=== PATIENT | female | born 1990 | race African-American/Black ===

== ENCOUNTER 2016-03-07 12:04 | Emergency (ER) | payer OTHER ==
[2016-03-07 12:18] VITALS: BP 120/71; PULSE 80; RESP 16; TEMP 98.6
[2016-03-07] MEDS ORDERED: IBUPROFEN 600 MG TAB PO STA (12:30)
[2016-03-07] MEDS ORDERED: AMOXICILLIN 500 MG CAP PO STA (12:30)
[2016-03-07] MEDS ORDERED: ACETAMINOPHEN TAB 325 MG TAB PO STA (12:30)
[2016-03-07] MEDS ORDERED: ONDANSETRON ODT 4 MG TAB PO STA (12:30)
[2016-03-07] MEDS ORDERED: Acetaminophen-Codeine 300-30mg TAB PO STA (12:30)
[2016-03-07] MEDS ORDERED: DEXAMETHASONE SOD PHOSPHATE 10 MG/ML 1 ML VIAL IM STA (12:30)
--- NOTE | 2016-03-07 12:32 | ED ---
General Adult HPI - General Chief complaint: Upper Respiratory Infection Stated complaint: FLU LIKE SYMPTOMS Time Seen by Provider: 03/07/16 12:19 Source: patient, RN notes reviewed, old records reviewed Mode of arrival: ambulatory - History of Present Illness Initial comments: This is a 25-year-old female here for evaluation. Patient coming in for evaluation of cough congestion and flulike symptoms. Patient describes fluid just not feeling well. Patient has no medical history no significant sick contacts no temperature was retaken medications. Patient admits to generalized body pain and diffuse body myalgias. Patient's is complains of sore throat and cough. No significant shortness of breath. No known fevers. - Related Data Previous Rx's Medication Instructions Recorded Amoxicillin 500 mg PO Q8H #30 capsule 03/07/16 Naproxen [Naprosyn] 500 mg PO Q12HR #60 tab 03/07/16 Ondansetron [Zofran] 4 mg PO Q8HR PRN #30 tab 03/07/16 Allergies Allergy/AdvReac Type Severity Reaction Status Date / Time No Known Allergies Allergy Verified 03/07/16 12:29 Review of Systems ROS Statement: Those systems with pertinent positive or pertinent negative responses have been documented in the HPI. ROS Other: All systems not noted in ROS Statement are negative. Past Medical History Past Medical History: No Reported History Additional Past Medical History / Comment(s): migraine History of Any Multi-Drug Resistant Organisms: None Reported Past Surgical History: Section Past Anesthesia/Blood Transfusion Reactions: No Reported Reaction Past Psychological History: Anxiety Smoking Status: Never smoker Past Alcohol Use History: None Reported Past Drug Use History: None Reported - Past Family History Mother Family Medical History: No Reported History General Exam General appearance: alert, in no apparent distress Head exam: Present: atraumatic, normocephalic, normal inspection Eye exam: Present: normal appearance, PERRL, EOMI. Absent: scleral icterus, conjunctival injection, periorbital swelling ENT exam: Present: normal exam, mucous membranes moist Neck exam: Present: normal inspection. Absent: tenderness, meningismus, lymphadenopathy Respiratory exam: Present: normal lung sounds bilaterally. Absent: respiratory distress, wheezes, rales, rhonchi, stridor Cardiovascular Exam: Present: regular rate, normal rhythm, normal heart sounds. Absent: systolic murmur, diastolic murmur, rubs, gallop, clicks GI/Abdominal exam: Present: soft, normal bowel sounds. Absent: distended, tenderness, guarding, rebound, rigid Extremities exam: Present: normal inspection, full ROM, normal capillary refill. Absent: tenderness, pedal edema, joint swelling, calf tenderness Back exam: Present: normal inspection Neurological exam: Present: alert, oriented X3, CN II-XII intact Psychiatric exam: Present: normal affect, normal mood Skin exam: Present: warm, dry, intact, normal color. Absent: rash Course Vital Signs 03/07/16 12:13 Temperature 98.6 F Pulse Rate 80 Respiratory 16 Rate Blood Pressure 120/71 O2 Sat by Pulse 99 Oximetry Medical Decision Making - Medical Decision Making 21 for female here for evaluation of upper respiratory infection, patient will be started on appropriate antibiotics and symptomatic care. Patient feeling better, no acute distress. Disposition Clinical Impression: Upper respiratory infection, Pharyngitis Disposition: HOME SELF-CARE Condition: Good Instructions: Upper Respiratory Infection (ED), Strep Throat (ED) Prescriptions: Amoxicillin 500 mg PO Q8H #30 capsule Naproxen [Naprosyn] 500 mg PO Q12HR #60 tab Ondansetron [Zofran] 4 mg PO Q8HR PRN #30 tab PRN Reason: Nausea And Vomiting Referrals: Jeronimo Wilson MD [Primary Care Provider] - 1-2 days
--- NOTE | 2016-03-09 11:48 | CDI ---
Please add more patient documentation to the patient record in order to be accurately coded. Thank you, Junie MARTIN 03/08/16 DAISY
== END 2016-03-07 12:52 | disposition home or self-care (01) ==
LOC: EC 12:04
DX: J06.9 Acute upper respiratory infection, unspecified (principal); J02.9 Acute pharyngitis, unspecified
CPT/HCPCS: 99283; J1100

== ENCOUNTER 2016-05-13 15:19 | Emergency (ER) | payer OTHER ==
[2016-05-13 15:39] VITALS: BP 101/61; PULSE 105; RESP 16; TEMP 98.5
--- NOTE | 2016-05-13 17:02 | ED ---
Abdominal Pain HPI - General Chief Complaint: Abdominal Pain Stated Complaint: 13 wks /abd.pain Time Seen by Provider: 05/13/16 16:31 Source: patient, RN notes reviewed Mode of arrival: ambulatory Limitations: no limitations - History of Present Illness Initial Comments: 25-year-old female presents emergency Department with chief complaint of lower abdominal cramping. Patient is A1 encouraged to 2 weeks . Patient states she has upper calming appointment with her ROLL INSPECTOR states that she had this cramping with no bleeding. Denies any vaginal bleeding or vaginal discharge. Patient states that she does have a several months ago. Patient denies any nausea, vomiting diarrhea constipation. Denies any dysuria hematuria. - Related Data Home Medications Medication Instructions Recorded Confirmed No Known Home Medications [No 05/13/16 05/13/16 Known Home Medications] Allergies Allergy/AdvReac Type Severity Reaction Status Date / Time No Known Allergies Allergy Verified 05/13/16 16:52 Review of Systems ROS Statement: Those systems with pertinent positive or pertinent negative responses have been documented in the HPI. ROS Other: All systems not noted in ROS Statement are negative. Past Medical History Past Medical History: No Reported History Additional Past Medical History / Comment(s): migraine History of Any Multi-Drug Resistant Organisms: None Reported Past Surgical History: Section Past Anesthesia/Blood Transfusion Reactions: No Reported Reaction Past Psychological History: Anxiety Smoking Status: Never smoker Past Alcohol Use History: None Reported Past Drug Use History: None Reported - Past Family History Mother Family Medical History: No Reported History General Exam Limitations: no limitations General appearance: alert, in no apparent distress Head exam: Present: atraumatic, normocephalic, normal inspection Neck exam: Present: normal inspection. Absent: tenderness, meningismus, lymphadenopathy Respiratory exam: Present: normal lung sounds bilaterally. Absent: respiratory distress, wheezes, rales, rhonchi, stridor Cardiovascular Exam: Present: regular rate, normal rhythm, normal heart sounds. Absent: systolic murmur, diastolic murmur, rubs, gallop, clicks GI/Abdominal exam: Present: soft, normal bowel sounds. Absent: distended, tenderness, guarding, rebound, rigid Course Vital Signs 05/13/16 15:36 Temperature 98.5 F Pulse Rate 105 H Respiratory 16 Rate Blood Pressure 101/61 O2 Sat by Pulse 97 Oximetry Medical Decision Making - Medical Decision Making 25-year-old female presented emergency department for low abdominal cramping . Patient ultrasound does not show an acute abnormality. Urinalysis within normal. Patient states she'll have a regular lab work drawn by her OB/ MEDIA RECONCILIATION SPECIALIST. Patient states that she [email or web address]. - Lab Data Lab Results 05/13/16 Range/Units 17:02 Urine Color Yellow Urine Appearance Clear (Clear) Urine pH 6.5 (5.0-8.0) Ur Specific Gardner 1.027 (1.001-1.035) Urine Protein Trace H (Negative) Urine Glucose (UA) Negative (Negative) Urine Ketones 1+ H (Negative) Urine Blood Negative (Negative) Urine Nitrite Negative (Negative) Urine Bilirubin Negative (Negative) Urine Urobilinogen 2.0 (<2.0) mg/dL Ur Leukocyte Esterase Negative (Negative) Disposition Clinical Impression: Abdominal cramping, Disposition: HOME SELF-CARE Condition: Stable Instructions: (ED) Additional Instructions: Please return to the Emergency Department if symptoms worsen or any other concerns. Time of Disposition: 17:54
[2016-05-13 17:07] LABS: Appearance,Urine Clear (Clear); Bilirubin,Urine Negative (Negative); Glucose,Urine (UA) Negative (Negative); Ketones,Urine 1+ (Negative); Leukocyte Esterase,Urine Negative (Negative); Nitrite,Urine Negative (Negative); PH, Urine 6.5 (5.0-8.0); Protein,Urine Trace (Negative); Specific Gravity,Urine 1.027 (1.001-1.035); UA Billing (MACRO vs. MICRO) CHEM
--- NOTE | 2016-05-13 18:01 | US ---
EXAMINATION TYPE: US OB <= 14 wk fetus DATE OF EXAM: 05/13/2016 5:38 PM COMPARISON: NONE CLINICAL HISTORY: Pain. Rt side cramping, no spotting, prior EXAM PERFORMED: Transabdominal (TA) EXAM MEASUREMENTS: GESTATIONAL AGE / DATING Dates by LMP: (12 weeks/6 days) EDC: 11/19/2016 Dates by Current Scan for: (13 weeks/2 days) EDC: 11/16/2016 MATERNAL ANATOMY Uterus: 13.0 x 9.4 x 7.8 cm Right Ovary: 2.7 x 1.7 x 1.1 cm Left Ovary: 2.6 x 1.7 x 1.5 cm Post CDS / Adnexa: no free fluid Presence of free fluid: no Presence of corpus luteal cyst: no Presence of subchorionic bleed: no GESTATION / SURVEY CRL: 7.1 (13 weeks/2 days) MSD: no measured Yolk Sac (normal less than 6mm): not seen Heart Rate: 166 bpm Rhythm: Normal IUP: Viable IUP Date of LMP: 02/13/2016 Beta HcG (if available): not available TECHNOLOGIST IMPRESSION: Live single IUP measuring 13 weeks 2 days. IMPRESSION: Single live intrauterine corresponding to an ultrasound age of 13 weeks and 2 days. Interna l cervical os is closed and no fluid is seen within the cervical canal.
== END 2016-05-13 17:58 | disposition home or self-care (01) ==
LOC: EC 15:19
DX: O99.89 Other specified diseases and conditions complicating pregnancy, childbirth and the puerperium (principal); R10.30 Lower abdominal pain, unspecified; Z3A.13 13 weeks gestation of pregnancy
CPT/HCPCS: 76801; 81003; 99284

== ENCOUNTER 2016-06-22 23:12 | Emergency (ER) | payer OTHER ==
[2016-06-22 23:30] VITALS: BP 127/67; TEMP 98.4
[2016-06-23 00:35] VITALS: PULSE 90
--- NOTE | 2016-06-23 00:49 | ED ---
General Adult HPI - General Chief complaint: Shortness of Breath Stated complaint: SOB/Hx Asthma Time Seen by Provider: 06/22/16 23:40 Source: patient, RN notes reviewed Mode of arrival: ambulatory Limitations: no limitations - History of Present Illness Initial comments: This is a 25-year-old female who is 18 weeks . Patient states she was unable to anxiety medications and to skip her that she had to be taken off of them. Patient states further along in her it is getting difficult to lay flat because it makes her feel like she has to breath. She states when this happens she becomes anxious and she feels even more short of breath. Patient states when she sits up for a while all symptoms seemed to resolve. Patient states currently sitting in the emergency department she feels fine. Patient states she says thinks it's her anxiety. Patient states it happened with the previous 2 pregnancies. Patient denies any cough. Patient denies any fever or chills. Patient denies any chest pain or palpitations. Patient denies headache patient denies numbness weakness. Patient denies lightheadedness dizziness or near syncopal episode. Patient denies any leg swelling or calf tenderness. - Related Data Home Medications Medication Instructions Recorded Confirmed No Known Home Medications [No 05/13/16 06/22/16 Known Home Medications] Allergies Allergy/AdvReac Type Severity Reaction Status Date / Time No Known Allergies Allergy Verified 06/22/16 23:30 Review of Systems ROS Statement: Those systems with pertinent positive or pertinent negative responses have been documented in the HPI. ROS Other: All systems not noted in ROS Statement are negative. Past Medical History Past Medical History: Asthma Additional Past Medical History / Comment(s): migraine History of Any Multi-Drug Resistant Organisms: None Reported Past Surgical History: Section Past Anesthesia/Blood Transfusion Reactions: No Reported Reaction Past Psychological History: Anxiety Smoking Status: Never smoker Past Alcohol Use History: None Reported Past Drug Use History: None Reported - Past Family History Mother Family Medical History: No Reported History General Exam - General Exam Comments Initial Comments: GENERAL: Patient is well-developed and well-nourished. Patient is nontoxic and well- hydrated and is in no acute distress. ENT: Neck is soft and supple. No significant lymphadenopathy is noted. Oropharynx is clear. Moist mucous membranes. Neck has full range of motion without eliciting any pain. EYES: The sclera were anicteric and conjunctiva were pink and moist. Extraocular movements were intact and pupils were equal round and reactive to light. Eyelids were unremarkable. PULMONARY: Unlabored respirations. Good breath sounds bilaterally. No audible rales rhonchi or wheezing was noted. CARDIOVASCULAR: There is a regular rate and rhythm without any murmurs gallops or rubs. ABDOMEN: Soft and nontender with normal bowel sounds. No palpable organomegaly was noted. There is no palpable pulsatile mass. SKIN: Skin is clear with no lesions or rashes and otherwise unremarkable. NEUROLOGIC: Patient is alert and oriented x3. Cranial nerves II through XII are grossly intact. Motor and sensory are also intact. Normal speech, volume and content. Symmetrical smile. MUSCULOSKELETAL: Normal extremities with adequate strength and full range of motion. No lower extremity swelling or edema. No calf tenderness. PSYCHIATRIC: Normal psychiatric evaluation. Patient is mildly anxious Limitations: no limitations Course Vital Signs 06/22/16 06/23/16 23:27 00:30 Temperature 98.4 F Pulse Rate 88 90 Respiratory 20 20 Rate Blood Pressure 127/67 O2 Sat by Pulse 97 96 Oximetry Medical Decision Making - Medical Decision Making Patient is oxygenating 99% on room air breathing through her nose. Her heart rate is 81 bpm her blood pressure is normal her lungs are clear. I discussed with her the possibility that her increased abdominal girth condition the sensation she needs takes a big breath when she is laying down and she agrees sitting up and sleeping as much better. And I discussed that her vitals are perfect she is no distress she is breathing through her nose and I didn't think any workup would be necessary she agreed it was probably her anxiety and now that she has been in the emergency department she feels back to her baseline. Patient is comfortable going home with no further workup Disposition Clinical Impression: Anxiety Disposition: HOME SELF-CARE Instructions: Anxiety (ED) Referrals: Nonstaff,Physician [Primary Care Provider] - 1-2 days Time of Disposition: 00:49
[2016-06-23 00:55] VITALS: RESP 18
== END 2016-06-23 00:55 | disposition home or self-care (01) ==
LOC: EC 23:12
DX: O99.342 Other mental disorders complicating pregnancy, second trimester (principal); F41.9 Anxiety disorder, unspecified; Z3A.18 18 weeks gestation of pregnancy
CPT/HCPCS: 99284

== ENCOUNTER 2016-07-17 18:35 | Emergency (ER) | payer OTHER ==
[2016-07-17 18:58] VITALS: RESP 18
[2016-07-17] MEDS ORDERED: ACETAMINOPHEN TAB 500 MG TAB PO STA (19:10)
--- NOTE | 2016-07-17 19:15 | ED ---
General Adult HPI - General Chief complaint: Fever Stated complaint: back pain,congestion Time Seen by Provider: 07/17/16 19:01 Source: patient, RN notes reviewed, old records reviewed Mode of arrival: ambulatory Limitations: no limitations - History of Present Illness Initial comments: Chief complaint history of present illness a 25-year-old female with complaint of sore throat and right ear pain for 3 days. She had a fever that long 2. Patient presents with temp 102.3. She last took Tylenol this morning at 9 AM. - Related Data Home Medications Medication Instructions Recorded Confirmed Ferrous Sulfate [Feosol] 325 mg PO HS 07/17/16 07/17/16 Pnv #78/Iron Asp Gly/FA#1/Dha 1 cap PO HS 07/17/16 07/17/16 [Prenate Dha Softgel] Previous Rx's Medication Instructions Recorded Amoxicillin 500 mg PO Q8H 10 Days 07/17/16 Allergies Allergy/AdvReac Type Severity Reaction Status Date / Time No Known Allergies Allergy Verified 06/22/16 23:30 Review of Systems ROS Statement: Those systems with pertinent positive or pertinent negative responses have been documented in the HPI. Review of systems. Mild headache but no stiff neck pain to the right ear. Complains of sore throat. Able to put her chin to her chest without any discomfort to the neck or meningismus. No chest pain shortness breath GI/ complaints. She is 22 weeks . No vaginal discharge or cramping. No flank pain, no urinary problems. Past medical problems significant for asthma and migraines. The patient is 22 weeks . Surgeries include . Family history a grandmother had breast cancer. Patient denies ALLERGIES nonsmoker nondrinker. ROS Other: All systems not noted in ROS Statement are negative. Past Medical History Past Medical History: Asthma Additional Past Medical History / Comment(s): migraine History of Any Multi-Drug Resistant Organisms: None Reported Past Surgical History: Section Past Anesthesia/Blood Transfusion Reactions: No Reported Reaction Past Psychological History: Anxiety Smoking Status: Never smoker Past Alcohol Use History: None Reported Past Drug Use History: None Reported - Past Family History Mother Family Medical History: No Reported History General Exam - General Exam Comments Initial Comments: General: The patient is awake and alert, complaining of right ear pain sore throat mild headache. Vital signs shows temperature 102.3 pulse 122 respiratory rate 18 pulse ox R percent room air blood pressure 139/86. Eye: Pupils are equal, round and reactive to light, extra-ocular movements are intact ; there is normal conjunctiva bilaterally. No signs of icterus. Ears, nose, mouth and throat: There are moist mucous membranes and oropharynx mildly reddened no exudate. Mildly full red right tympanic membrane. Neck: The neck is supple, there is no tenderness , no anterior cervical lymphadenopathy. She does complain discomfort to the bilateral sternocleidomastoid his muscles. But no meningismus with full neck flexion and extension. Cardiovascular: Tachycardic heart rate with fever.. No murmur, rub or gallop is appreciated. Respiratory: Lungs are clear to auscultation, respirations are non-labored, breath sounds are equal. No wheezes, stridor, rales, or rhonchi. Gastrointestinal: Soft, non-distended, non-tender abdomen without masses or organomegaly noted. There is no rebound or guarding present. Patient's 22 weeks . No vaginal discharge or cramping. Back: There is no tenderness to palpation in the midline. No back pain Musculoskeletal: Normal ROM, no tenderness, Neurological: No neuro deficits Skin: No skin rash Limitations: no limitations Course Vital Signs 07/17/16 07/17/16 07/17/16 18:55 19:15 20:19 Temperature 102.3 F H 103.0 F H 102.2 F H Pulse Rate 122 H 112 H Respiratory 18 18 Rate Blood Pressure 139/86 137/64 O2 Sat by Pulse 100 100 Oximetry 07/17/16 07/17/16 21:10 21:56 Temperature 99.8 F H 99.6 F Pulse Rate 98 Respiratory 18 Rate Blood Pressure 114/74 O2 Sat by Pulse 100 Oximetry Medical Decision Making - Medical Decision Making Medical decision making the patient's rapid strep test is negative, influenza AB -. Patient received 1 g of Tylenol. At this time she states she is feeling much better. No headache. No stiff neck. No meningismus. No cough. The patient was given amoxicillin 500 mg in the ER. She has right otitis media. Patient was advised to follow-up with the family physician return emergency room as needed otherwise increase fluids and take Tylenol as directed for fever or muscle aches and pains. If her symptoms change she is to return to the emergency room - Lab Data Lab Results 07/17/16 07/17/16 Range/Units 18:57 19:50 Influenza Type A RNA Not Detected (Not Detectd) Influenza Type B (PCR) Not Detected (Not Detectd) Group A Strep Rapid Negative (Negative) Disposition Clinical Impression: Otitis media Disposition: HOME SELF-CARE Condition: Fair Instructions: Fever in Adults (ED), Otitis Media (ED) Additional Instructions: Increase fluids, take Tylenol as directed for fever or muscle aches and pains. Follow-up family physician and your DIRECTOR MEDICAL WRITING doctor. Take amoxicillin 500 mg 3 times a day for 10 days. Return emergency room if there are any changes in her condition Prescriptions: Amoxicillin 500 mg PO Q8H 10 Days Referrals: None,Stated [REFERRING] - 1-2 days Time of Disposition: 22:28
[2016-07-17] MEDS ORDERED: AMOXICILLIN 500MG STARTER PACK 3 CAP BTL PO STA (22:26)
[2016-07-17 22:52] VITALS: BP 106/56; PULSE 102; TEMP 99
== END 2016-07-17 22:55 | disposition home or self-care (01) ==
LOC: EC 18:35
DX: H66.91 Otitis media, unspecified, right ear (principal); Z79.899 Other long term (current) drug therapy
CPT/HCPCS: 87081; 87430; 87502; 99284

== ENCOUNTER 2016-07-19 15:49 | Emergency (ER) | payer OTHER ==
[2016-07-19] MEDS ORDERED: SODIUM CHLORIDE 0.9% 1,000 ML IV STA (16:17)
[2016-07-19] MEDS ORDERED: SODIUM CHLORIDE 0.9% 2,000 ML IV STA (16:17)
[2016-07-19] MEDS ORDERED: METOCLOPRAMIDE 5 MG/ML 2 ML VIAL IVP STA (16:17)
[2016-07-19] MEDS ORDERED: IPRATROPIUM-ALBUTEROL 3 ML NEB INHALATION STA (16:18)
[2016-07-19] MEDS ORDERED: ACETAMINOPHEN IV (For NPO) 1,000 MG in EMPTY BAG 1 BAG IVPB ONE (16:18)
--- NOTE | 2016-07-19 16:23 | ED ---
General Adult HPI - General Chief complaint: Shortness of Breath Stated complaint: SOB/Vomiting/Headache-22 wks preg Time Seen by Provider: 07/19/16 16:10 Source: patient Mode of arrival: wheelchair Limitations: no limitations - History of Present Illness Initial comments: This 25-year-old -[place] female presents with a complaint of a headache and vomiting. She states that she does get migraine headaches her current headache has been present over the last 2 days and moderately severe. It is diffuse in nature. She also has been having multiple episodes of nausea and vomiting over the last 2 days. She feels dehydrated currently. She has not been able to eat anything in the last 2 days. She was seen in the emergency department 2 days ago and diagnosed with otitis media and placed on antibiotics. She states that she had a fever of 102 2 days ago but this has improved and she's not had any further fevers. She denies any current ear pain but does complain of congestion throughout her sinuses and nose. She complains of some diffuse pain throughout her face and periauricular region. She is currently 22 weeks . She denies any complications with thus far. She denies any abdominal pain. She does have occasional shortness of breath but relates that she has a history of asthma. She started her home breathing treatments with limited relief. No other complaints or modifying factors. - Related Data Home Medications Medication Instructions Recorded Confirmed Pnv #78/Iron Asp Gly/FA#1/Dha 1 cap PO DAILY 07/17/16 07/19/16 [Prenate Dha Softgel] Previous Rx's Medication Instructions Recorded Metoclopramide [Reglan] 10 mg PO Q6H PRN #20 tab 07/19/16 Allergies Allergy/AdvReac Type Severity Reaction Status Date / Time No Known Allergies Allergy Verified 07/19/16 16:34 Review of Systems ROS Statement: Those systems with pertinent positive or pertinent negative responses have been documented in the HPI. ROS Other: All systems not noted in ROS Statement are negative. Past Medical History Past Medical History: Asthma Additional Past Medical History / Comment(s): migraine History of Any Multi-Drug Resistant Organisms: None Reported Past Surgical History: Section Past Anesthesia/Blood Transfusion Reactions: No Reported Reaction Past Psychological History: Anxiety Smoking Status: Never smoker Past Alcohol Use History: None Reported Past Drug Use History: None Reported - Past Family History Mother Family Medical History: No Reported History General Exam - General Exam Comments Initial Comments: GENERAL: The patient is well nourished and well hydrated. VITAL SIGNS: Heart rate, blood pressure, respiratory rate reviewed as recorded in nurse's notes. EYES: Pupils are round and reactive. Extraocular movements are intact. No conjunctival / lid redness or swelling. ENT: No external evidence of injury, swelling, or ecchymosis. Airway is patent. Throat is clear. Tympanic membranes are slightly dull bilaterally. NECK: Nontender. No swelling or evidence of injury. No subcutaneous emphysema. Trachea is midline. No thyroid mass. HEART: Regular rate and rhythm. Good peripheral pulses. LUNGS/CHEST: Breath sounds clear and equal bilaterally. No rales, rhonchi, or wheezes. No ecchymosis, subcutaneous emphysema, or tenderness. ABDOMEN: Abdomen soft without tenderness. There is a part partially gravid uterus noted. No peritoneal signs. No abdominal wall swelling or ecchymosis. EXTREMITIES: No extremity tenderness. Normal muscle tone and function. No thoracolumbar tenderness. NEUROLOGIC: Sensation is grossly intact. Cranial nerve exam reveals face is symmetrical, tongue is midline, speech is clear. SKIN: No abrasions or ecchymosis is noted. No induration or masses noted. PSYCHIATRIC: Alert and oriented. Appropriate behavior and judgment. Limitations: no limitations Course Vital Signs 07/19/16 07/19/16 07/19/16 15:57 17:21 17:30 Temperature 97.0 F L Pulse Rate 91 88 90 Respiratory 18 Rate Blood Pressure 106/64 O2 Sat by Pulse 97 Oximetry Medical Decision Making - Medical Decision Making The patient was seen and examined. Ample IV fluids are given. She also received some Reglan as well as some Ofirmev. All diagnostics are reviewed. Old records are reviewed. The laboratory shows a very slight decrease in her CO2 consistent with some dehydration. The remainder of labs are overall fairly unremarkable. She is feeling remarkably improved on recheck. She longer has any headache. Her nausea is resolved. Her main complaint was essentially that of the nausea and vomiting as well as headache. The shortness of breath is consistent with her asthma and is a mild complaint. This is improved as well. Is felt as though she would benefit from a prescription further Reglan for home. It is also felt that she may benefit from Tylenol usage and can safely take this with . She is instructed that she may utilize her albuterol treatments every 4 hours as needed for her asthma at home as well. It is further felt that she benefit from close follow-up with her OB doctor and to return if her symptoms do worsen. She voices understanding, is appreciative, and leaves in no distress. - Lab Data Result diagrams: 07/19/16 16:44 07/19/16 16:44 Lab Results 07/19/16 07/19/16 Range/Units 16:44 16:44 WBC 7.0 (3.8-10.6) k/uL RBC 3.91 (3.80-5.40) m/uL Hgb 12.2 (11.4-16.0) gm/dL Hct 37.3 (34.0-46.0) % MCV 95.4 (80.0-100.0) fL MCH 31.3 (25.0-35.0) pg MCHC 32.8 (31.0-37.0) g/dL RDW 12.7 (11.5-15.5) % Plt Count 258 (150-450) k/uL Neutrophils % 74 % Lymphocytes % 20 % Monocytes % 3 % Eosinophils % 1 % Basophils % 0 % Neutrophils # 5.1 (1.3-7.7) k/uL Lymphocytes # 1.4 (1.0-4.8) k/uL Monocytes # 0.2 (0-1.0) k/uL Eosinophils # 0.1 (0-0.7) k/uL Basophils # 0.0 (0-0.2) k/uL Sodium 140 (137-145) mmol/L Potassium 4.1 (3.5-5.1) mmol/L Chloride 109 H (98-107) mmol/L Carbon Dioxide 21 L (22-30) mmol/L Anion Gap 10 mmol/L BUN 8 (7-17) mg/dL Creatinine 0.45 L (0.52-1.04) mg/dL Est GFR (MDRD) Af Amer >60 (>60 ml/min/1.73 sqM) Est GFR (MDRD) Non-Af >60 (>60 ml/min/1.73 sqM) Glucose 79 (74-99) mg/dL Calcium 9.1 (8.4-10.2) mg/dL Amylase 92 (30-110) U/L Lipase 54 (23-300) U/L Disposition Clinical Impression: Nausea and vomiting during , Migraine, Asthma, , Dehydration , Hyperemesis gravidarum Disposition: HOME SELF-CARE Condition: Good Instructions: Asthma (ED), Hyperemesis Gravidarum (ED), Migraine Headache (ED) , Dehydration (ED) Additional Instructions: Please also use Tylenol if needed for additional headache or pain. Please follow-up with your [facility] doctor in the next 2-4 days. Prescriptions: Metoclopramide [Reglan] 10 mg PO Q6H PRN #20 tab PRN Reason: Nausea Referrals: Jeronimo Wilson MD [Primary Care Provider] - 1-2 days Time of Disposition: 17:37
[2016-07-19 17:04] LABS: Basophils % (A) 0 %; CH 31.9; CHCM 33.6; Eosinophils # (A) 0.1 k/uL (0-0.7); Eosinophils % (A) 1 %; HCT 37.3 % (34.0-46.0); HDW 2.83; HGB 12.2 gm/dL (11.4-16.0); Luc # (Auto) 0.14; Luc % (Auto) 2; Lymphocytes # (A) 1.4 k/uL (1.0-4.8); Lymphocytes % (A) 20 %; MCH 31.3 pg (25.0-35.0); MCHC 32.8 g/dL (31.0-37.0); MCV 95.4 fL (80.0-100.0); Mean Platelet Volume 7.7; Monocytes # (A) 0.2 k/uL (0-1.0); Monocytes % (A) 3 %; Neutrophils # (A) 5.1 k/uL (1.3-7.7); Neutrophils % (A) 74 %; RBC 3.91 m/uL (3.80-5.40); RDW 12.7 % (11.5-15.5); WBC (Perox) 6.91
[2016-07-19 17:16] LABS: Amylase 92 U/L (30-110); Anion Gap 10 mmol/L; Blood Urea Nitrogen 8 mg/dL (7-17); Calcium 9.1 mg/dL (8.4-10.2); Carbon Dioxide 21 mmol/L (22-30); Chloride 109 mmol/L (98-107); Glucose 79 mg/dL (74-99); Non-African American GFR(MDRD) >60 (>60 ml/min/1.73 sqM); Potassium 4.1 mmol/L (3.5-5.1); Sodium 140 mmol/L (137-145)
[2016-07-19 18:02] VITALS: BP 132/81; PULSE 86; RESP 17; TEMP 98.6
== END 2016-07-19 18:02 | disposition home or self-care (01) ==
LOC: EC 15:49
DX: O99.512 Diseases of the respiratory system complicating pregnancy, second trimester (principal); J45.909 Unspecified asthma, uncomplicated; O99.352 Diseases of the nervous system complicating pregnancy, second trimester; G43.909 Migraine, unspecified, not intractable, without status migrainosus; O21.2 Late vomiting of pregnancy; O99.282 Endocrine, nutritional and metabolic diseases complicating pregnancy, second trimester; E86.0 Dehydration; Z79.899 Other long term (current) drug therapy; Z53.20 Procedure and treatment not carried out because of patient's decision for unspecified reasons; Z3A.22 22 weeks gestation of pregnancy
CPT/HCPCS: 36415; 94640; 80048; 82150; 83690; 85025; 99285; 96374; 96361; J2765; J0131

== ENCOUNTER 2018-03-04 03:55 | Emergency (ER) | payer OTHER ==
[2018-03-04] MEDS ORDERED: SODIUM CHLORIDE 0.9% 1,000 ML IV STA (04:43)
[2018-03-04] MEDS ORDERED: MAG HYDROX/AL HYDROX/SIMETH 30 ML, HYOSCYAMINE ELIXIR 10 ML, CIMETIDINE HCL 300 MG, LID... PO STA ×4 (04:44)
--- NOTE | 2018-03-04 04:44 | ED ---
Abdominal Pain HPI - General Chief Complaint: Abdominal Pain Stated Complaint: Abdominal Pain Time Seen by Provider: 03/04/18 04:43 Source: patient Mode of arrival: ambulatory Limitations: no limitations - History of Present Illness Initial Comments: Sophy Pan is a 27-year-old -Finnish female presents the emergency department today for evaluation of burning epigastric abdominal pain. Patient reports she's had this pain intermittently for a number of weeks but tonight it became unbearable. Patient describes the pain as a burning and stabbing isolated to her epigastrium. Pain is been constant for a number of days. Pain seems to wax and wane a little bit but she cannot identify any exacerbating or relieving factors. Pain doesn't seem to be worsened or improved with eating. Pain doesn't seem to be changed by what she eats whether she eats bland spicy or greasy foods. Pain is not associated with any nausea or vomiting or change in bowel or bladder habits. Patient does report she has a history of GERD but this seems different. She has discussed this discomfort with her primary care physician the past but has been told that is likely related to her acid reflux. Patient does report that she is currently under a lot of stress. She states that she has recently started going to the gym and trying to work out to improve her health but is feeling very discouraged by this constant pain. - Related Data Home Medications Medication Instructions Recorded Confirmed 78/Iron/Folate 1/Dha 1 cap PO DAILY 07/17/16 07/19/16 [Prenate Dha Softgel] Previous Rx's Medication Instructions Recorded Metoclopramide [Reglan] 10 mg PO Q6H PRN #20 tab 07/19/16 Pantoprazole Sodium [Protonix] 40 mg PO DAILY #30 tablet. 03/04/18 Sucralfate [Carafate] 1 gm PO ACHS #1 bottle 03/04/18 Allergies Allergy/AdvReac Type Severity Reaction Status Date / Time No Known Allergies Allergy Verified 03/04/18 04:17 Review of Systems ROS Statement: Those systems with pertinent positive or pertinent negative responses have been documented in the HPI. ROS Other: All systems not noted in ROS Statement are negative. Past Medical History Past Medical History: Asthma, GERD/Reflux Additional Past Medical History / Comment(s): migraine History of Any Multi-Drug Resistant Organisms: None Reported Past Surgical History: Section Past Anesthesia/Blood Transfusion Reactions: No Reported Reaction Past Psychological History: Anxiety Smoking Status: Never smoker Past Alcohol Use History: None Reported Past Drug Use History: None Reported - Past Family History Mother Family Medical History: No Reported History General Exam - General Exam Comments Initial Comments: Physical Exam GENERAL: Morbidly obese Patient is well-developed and well-nourished. Patient is nontoxic and well-hydrated and is in no distress. HENT: Normocephalic, Atraumatic. EYES: PERRL, EOMI PULMONARY: Unlabored respirations. No audible rales rhonchi or wheezing was noted. CARDIOVASCULAR: There is a regular rate and rhythm without any murmurs gallops or rubs. ABDOMEN: Soft and nontender with normal bowel sounds. No tenderness to palpation SKIN: Skin is clear with no lesions or rashes and otherwise unremarkable. : Deferred NEUROLOGIC: Patient is alert and oriented x3. Moving all extremities spontaneously MUSCULOSKELETAL: Normal extremities with adequate strength and full range of motion. No lower extremity swelling or edema. No calf tenderness. PSYCHIATRIC: Normal psychiatric evaluation. Limitations: no limitations Limitations: no limitations Course Vital Signs 03/04/18 03/04/18 03/04/18 04:14 07:06 09:03 Temperature 98.5 F 98.1 F Pulse Rate 82 75 86 Respiratory 18 16 16 Rate Blood Pressure 124/67 103/70 123/85 O2 Sat by Pulse 100 99 100 Oximetry Medical Decision Making - Medical Decision Making Patient was seen and evaluated History is obtained from patient Labs and imaging ordered GI cocktail was ordered Labs were unremarkable x-ray imaging with no acute findings I have a very high suspicion the patient's discomfort is related to gastritis or ulcer disease. Just this with the patient. Patient requesting narcotic pain medication I advised her I don't feel this is appropriate for her chronic pain. Patient is agreeable to plan for discharge home with outpatient follow- up. Patient be referred to gastroenterology as she has not seen a team manager in the past. All questions pertaining care were answered return parameters were discussed patient's discharged home in stable condition. - Lab Data Result diagrams: 03/04/18 05:38 03/04/18 05:38 Lab Results 03/04/18 03/04/18 03/04/18 Range/Units 04:46 05:38 05:38 WBC 6.9 (3.8-10.6) k/uL RBC 4.25 (3.80-5.40) m/uL Hgb 12.5 (11.4-16.0) gm/dL Hct 39.5 (34.0-46.0) % MCV 92.9 (80.0-100.0) fL MCH 29.5 (25.0-35.0) pg MCHC 31.7 (31.0-37.0) g/dL RDW 12.3 (11.5-15.5) % Plt Count 283 (150-450) k/uL Neutrophils % 56 % Lymphocytes % 35 % Monocytes % 3 % Eosinophils % 3 % Basophils % 0 % Neutrophils # 3.8 (1.3-7.7) k/uL Lymphocytes # 2.4 (1.0-4.8) k/uL Monocytes # 0.2 (0-1.0) k/uL Eosinophils # 0.2 (0-0.7) k/uL Basophils # 0.0 (0-0.2) k/uL Sodium 141 (137-145) mmol/L Potassium 4.6 (3.5-5.1) mmol/L Chloride 111 H (98-107) mmol/L Carbon Dioxide 22 (22-30) mmol/L Anion Gap 8 mmol/L BUN 11 (7-17) mg/dL Creatinine 0.63 (0.52-1.04) mg/dL Est GFR (CKD-EPI)AfAm >90 (>60 ml/min/1.73 sqM) Est GFR (CKD-EPI)NonAf >90 (>60 ml/min/1.73 sqM) Glucose 119 H (74-99) mg/dL Calcium 9.5 (8.4-10.2) mg/dL Total Bilirubin 0.7 (0.2-1.3) mg/dL AST 26 (14-36) U/L ALT 23 (9-52) U/L Alkaline Phosphatase 75 (38-126) U/L Total Protein 7.8 (6.3-8.2) g/dL Albumin 4.2 (3.5-5.0) g/dL Amylase 89 (30-110) U/L Lipase 119 (23-300) U/L Urine Color Yellow Urine Appearance Clear (Clear) Urine pH 6.5 (5.0-8.0) Ur Specific [place] 1.019 (1.001-1.035) Urine Protein Negative (Negative) Urine Glucose (UA) Negative (Negative) Urine Ketones Negative (Negative) Urine Blood Negative (Negative) Urine Nitrite Negative (Negative) Urine Bilirubin Negative (Negative) Urine Urobilinogen <2.0 (<2.0) mg/dL Ur Leukocyte Esterase Negative (Negative) Disposition Clinical Impression: Abdominal pain Disposition: HOME SELF-CARE Condition: Good Instructions: Abdominal Pain (ED) Prescriptions: Pantoprazole Sodium [Protonix] 40 mg PO DAILY #30 tablet. Sucralfate [Carafate] 1 gm PO ACHS #1 bottle Is patient prescribed a controlled substance at d/c from ED?: No Referrals: Jeronimo Wilson MD [Primary Care Provider] - 1-2 days Jayro Trinidad MD [STAFF PHYSICIAN] - 1-2 days Pavan Cobian MD [STAFF PHYSICIAN] - 1-2 days Markell Barajas MD [STAFF PHYSICIAN] - 1-2 days
[2018-03-04 05:07] LABS: Appearance,Urine Clear (Clear); Bilirubin,Urine Negative (Negative); Blood,Urine Negative (Negative); Color,Urine Yellow; Glucose,Urine (UA) Negative (Negative); Ketones,Urine Negative (Negative); Leukocyte Esterase,Urine Negative (Negative); Nitrite,Urine Negative (Negative); PH, Urine 6.5 (5.0-8.0); Protein,Urine Negative (Negative); Specific Gravity,Urine 1.019 (1.001-1.035); Urobilinogen,Urine <2.0 mg/dL (<2.0)
[2018-03-04 05:53] LABS: Basophils % (A) 0 %; Eosinophils # (A) 0.2 k/uL (0-0.7); Eosinophils % (A) 3 %; HCT 39.5 % (34.0-46.0); HGB 12.5 gm/dL (11.4-16.0); Lymphocytes # (A) 2.4 k/uL (1.0-4.8); Lymphocytes % (A) 35 %; MCH 29.5 pg (25.0-35.0); MCHC 31.7 g/dL (31.0-37.0); MCV 92.9 fL (80.0-100.0); Mean Platelet Volume 6.8; Monocytes # (A) 0.2 k/uL (0-1.0); Monocytes % (A) 3 %; Neutrophils # (A) 3.8 k/uL (1.3-7.7); Neutrophils % (A) 56 %; Platelet Count 283 k/uL (150-450); RBC 4.25 m/uL (3.80-5.40); RDW 12.3 % (11.5-15.5); WBC 6.9 k/uL (3.8-10.6)
[2018-03-04 06:04] LABS: ALT 23 U/L (9-52); AST 26 U/L (14-36); Albumin 4.2 g/dL (3.5-5.0); Alkaline Phosphatase 75 U/L (38-126); Amylase 89 U/L (30-110); Anion Gap 8 mmol/L; Blood Urea Nitrogen 11 mg/dL (7-17); Calcium 9.5 mg/dL (8.4-10.2); Carbon Dioxide 22 mmol/L (22-30); Chloride 111 mmol/L (98-107); Glucose 119 mg/dL (74-99); Lipase 119 U/L (23-300); Sodium 141 mmol/L (137-145); Total Bilirubin 0.7 mg/dL (0.2-1.3); Total Protein 7.8 g/dL (6.3-8.2)
[2018-03-04 06:09] LABS: Potassium 4.6 mmol/L (3.5-5.1)
--- NOTE | 2018-03-04 06:23 | XR ---
EXAM: XR Abdomen, 1 View CLINICAL HISTORY: abdominal pain TECHNIQUE: Frontal upright view of the abdomen/pelvis. COMPARISON: 07/01/2013 FINDINGS: Lower thorax: The lung bases are clear. Intraperitoneal space: No pneumoperitoneum is identified on the upright exam. Gastrointestinal tract: Moderate stool in the ascending and transverse colon. No bowel dilatation or air-fluid levels are identified. Bones/joints: Unremarkable. IMPRESSION: Moderate stool in the ascending and transverse colon. Otherwise nonspecific, nonobstructive bowel gas pattern. No pneumoperitoneum.
[2018-03-04 07:07] VITALS: RESP 16
[2018-03-04 09:07] VITALS: BP 123/85; PULSE 86; TEMP 98.1
== END 2018-03-04 09:15 | disposition home or self-care (01) ==
LOC: EC 03:55
DX: R10.13 Epigastric pain (principal); K21.9 Gastro-esophageal reflux disease without esophagitis
CPT/HCPCS: 36415; 74018; 80053; 81003; 82150; 83690; 85025; 96360; 99284

== ENCOUNTER 2018-05-18 10:50 | Emergency (ER) | payer OTHER ==
[2018-05-18 10:57] VITALS: BP 109/69; PULSE 82; RESP 18; TEMP 98.6
--- NOTE | 2018-05-18 11:53 | ED ---
ENT HPI - General Chief complaint: ENT Stated complaint: POSS STEP THROAT Source: patient Mode of arrival: ambulatory Limitations: no limitations - History of Present Illness Initial comments: 27yo female with no past medical history presenting today for chief complaint of sore throat x 2 -3 days. Patient states that she had sore throat a few months ago and was diagnosed with strep pharyngitis. Patient states she feels she is identical symptoms. Patient states her tonsils are enlarged. Patient denies a difficulty swallowing or breathing. Patient denies fever, chills, night sweats, ear pain or cough. Remaining review of systems negative, patient denies any recent neck stiffness, photophobia, shortness of breath, chest pain, back pain, abdominal pain, nausea or vomiting, numbness or tingling, dysuria or hematuria, constipation or diarrhea, headaches or visual changes, or any other complaints. Mother states that entire household has been sick. - Related Data Previous Rx's Medication Instructions Recorded Amoxicillin 500 mg PO Q12HR 10 Days #20 cap 05/18/18 Allergies Allergy/AdvReac Type Severity Reaction Status Date / Time No Known Allergies Allergy Verified 05/18/18 11:19 Review of Systems ROS Statement: Those systems with pertinent positive or pertinent negative responses have been documented in the HPI. ROS Other: All systems not noted in ROS Statement are negative. Past Medical History Past Medical History: Asthma, GERD/Reflux Additional Past Medical History / Comment(s): migraine History of Any Multi-Drug Resistant Organisms: None Reported Past Surgical History: Section Past Anesthesia/Blood Transfusion Reactions: No Reported Reaction Past Psychological History: Anxiety Smoking Status: Never smoker Past Alcohol Use History: None Reported Past Drug Use History: None Reported - Past Family History Mother Family Medical History: No Reported History General Exam - General Exam Comments Initial Comments: General: The patient is awake and alert, in no distress, and does not appear acutely ill. Eye: +3 mm pupils are equal, round and reactive to light, extra-ocular movements are intact. No nystagmus. There is normal conjunctiva bilaterally. No signs of icterus. No photophobia Ears, nose, mouth and throat: There are moist mucous membranes and no oral lesions. Oropharynx was mildly erythematous there is no tonsillar enlargement, with mild exudates and no lesions. Uvula midline. Tympanic membranes are not erythematous or is no effusions bulging or retraction. No tenderness to palpation of the mastoid. No anterior cervical lymphadenopathy. Rhinorrhea, clear and bilateral nares. No tripoding, no drooling. Neck: The neck is supple, there is no tenderness or JVD. No nuchal rigidity negative Brudzinski and Kernig Cardiovascular: There is a regular rate and rhythm. No murmur, rub or gallop is appreciated. Respiratory: Lungs are clear to auscultation, respirations are non-labored, breath sounds are equal. No wheezes, stridor, rales, or rhonchi. No retractions or abdominal breathing. Gastrointestinal: Soft, non-distended, non-tender abdomen without masses or organomegaly noted. There is no rebound or guarding present. Bowel sounds are unremarkable. Musculoskeletal: Normal ROM, no tenderness. Strength 5/5. Sensation intact. Radial pulses equal bilaterally 2+. Neurological: A&O x 3. CN II-XII intact, There are no obvious motor or sensory deficits. Coordination appears grossly intact. Speech appears normal, no muffling. Skin: Skin is warm and dry and no rashes or lesions are noted. No extremity edema Psychiatric: Cooperative Limitations: no limitations Course Vital Signs 05/18/18 10:54 Temperature 98.6 F Pulse Rate 82 Respiratory 18 Rate Blood Pressure 109/69 O2 Sat by Pulse 98 Oximetry Medical Decision Making - Medical Decision Making 27yo female with history of strep pharyngitis present today for sore throat. Exam patient concern for strep pharyngitis. Patient will be treated for strep pharyngitis. Patient denies any other positive review of system. Patient afeb rile appearing well and nontoxic. No findings concerning for obstructive process such as peritonsillar abscess. Uvula midline. Patient was discharged with antibiotic and symptomatically treatment. Patient is to follow-up with primary care provider. Return parameters were discussed with patient who verbalized understanding. I discussed the case attending provider Dr. Contreras prior to patient's discharge was agreeable discharge as well as plan. Disposition Clinical Impression: Pharyngitis, Tendonitis Disposition: HOME SELF-CARE Condition: Good Instructions (If sedation given, give patient instructions): Pharyngitis (ED), Tendinitis (ED) Additional Instructions: Please use medication as discussed. Please follow-up with family doctor in the next 2 days. Please return to emergency room if the symptoms increase or worsen or for any other concerns. Prescriptions: Amoxicillin 500 mg PO Q12HR 10 Days #20 cap Is patient prescribed a controlled substance at d/c from ED?: No Referrals: Jeronimo Wilson MD [Primary Care Provider] - 1-2 days Kishore More DO [Medical Doctor] - 1-2 days Time of Disposition: 11:53
== END 2018-05-18 12:11 | disposition home or self-care (01) ==
LOC: EC 10:50
DX: J02.0 Streptococcal pharyngitis (principal); M77.9 Enthesopathy, unspecified
CPT/HCPCS: 99282

== ENCOUNTER 2018-06-05 21:49 | Emergency (ER) | payer OTHER ==
--- NOTE | 2018-06-05 23:06 | XR ---
EXAM: XR Chest, 2 Views CLINICAL HISTORY: ITS.REASON XR Reason: Pain TECHNIQUE: Frontal and lateral views of the chest. COMPARISON: No relevant prior studies available. FINDINGS: Lungs: Unremarkable. No consolidation. Pleural space: Unremarkable. No pneumothorax. Heart: Unremarkable. No cardiomegaly. Mediastinum: Unremarkable. Bones/joints: No acute fracture. IMPRESSION: No acute findings.
[2018-06-06] MEDS ORDERED: SODIUM CHLORIDE 0.9% 1,000 ML IV STA (00:05)
[2018-06-06 00:37] LABS: Basophils % (A) 0 %; Eosinophils # (A) 0.2 k/uL (0-0.7); Eosinophils % (A) 3 %; HCT 36.4 % (34.0-46.0); Lymphocytes # (A) 2.9 k/uL (1.0-4.8); Lymphocytes % (A) 45 %; MCH 29.6 pg (25.0-35.0); MCV 89.7 fL (80.0-100.0); Monocytes # (A) 0.3 k/uL (0-1.0); Monocytes % (A) 5 %; Neutrophils # (A) 2.8 k/uL (1.3-7.7); Neutrophils % (A) 45 %; Platelet Count 271 k/uL (150-450); RBC 4.05 m/uL (3.80-5.40); RDW 12.2 % (11.5-15.5); WBC 6.3 k/uL (3.8-10.6)
[2018-06-06 01:08] LABS: ALT 19 U/L (9-52); AST 16 U/L (14-36); Albumin 3.6 g/dL (3.5-5.0); Alkaline Phosphatase 82 U/L (38-126); Anion Gap 7 mmol/L; Blood Urea Nitrogen 13 mg/dL (7-17); Calcium 9.1 mg/dL (8.4-10.2); Carbon Dioxide 23 mmol/L (22-30); Chloride 109 mmol/L (98-107); Glucose 92 mg/dL (74-99); INR 0.9 (<1.2); Partial Thromboplastin Time 24.8 sec (22.0-30.0); Potassium 4.4 mmol/L (3.5-5.1); Prothrombin Time 9.8 sec (9.0-12.0); Sodium 139 mmol/L (137-145); Total Bilirubin 0.3 mg/dL (0.2-1.3); Total Protein 6.9 g/dL (6.3-8.2)
--- NOTE | 2018-06-06 01:32 | ED ---
Chest Pain HPI - General Chief Complaint: Chest Pain Stated Complaint: Chest pain Time Seen by Provider: 06/05/18 23:27 Source: patient, RN notes reviewed, old records reviewed Mode of arrival: ambulatory Limitations: no limitations - History of Present Illness Initial Comments: Patient is a 27-year-old female who presents emergency department today com plaints of chest pain generalized fatigue. She's been having symptoms for a month. Patient states that she has no significant shortness of breath. She denies any nausea or vomiting or diarrhea. She denies any abdominal pain. - Related Data Previous Rx's Medication Instructions Recorded Amoxicillin 500 mg PO Q12HR 10 Days #20 cap 05/18/18 Ibuprofen 600 mg PO TID #30 tablet 06/06/18 methylPREDNISolone Dose Pack 4 mg PO DIRECTED #21 package 06/06/18 [Medrol Dose Pack] Allergies Allergy/AdvReac Type Severity Reaction Status Date / Time No Known Allergies Allergy Verified 06/05/18 22:20 Review of Systems ROS Statement: Those systems with pertinent positive or pertinent negative responses have been documented in the HPI. ROS Other: All systems not noted in ROS Statement are negative. Past Medical History Past Medical History: Asthma, GERD/Reflux Additional Past Medical History / Comment(s): migraine History of Any Multi-Drug Resistant Organisms: None Reported Past Surgical History: Section Past Anesthesia/Blood Transfusion Reactions: No Reported Reaction Past Psychological History: Anxiety Smoking Status: Never smoker Past Alcohol Use History: None Reported Past Drug Use History: None Reported - Past Family History Mother Family Medical History: No Reported History General Exam - General Exam Comments Initial Comments: Well-appearing 27-year-old female. Alert and oriented. No distress. Limitations: no limitations General appearance: alert, in no apparent distress Head exam: Present: atraumatic, normocephalic, normal inspection Eye exam: Present: normal appearance, PERRL, EOMI. Absent: scleral icterus, conjunctival injection, periorbital swelling ENT exam: Present: normal exam, mucous membranes moist Neck exam: Present: normal inspection. Absent: tenderness, meningismus, lymphadenopathy Respiratory exam: Present: normal lung sounds bilaterally. Absent: respiratory distress, wheezes, rales, rhonchi, stridor Cardiovascular Exam: Present: regular rate, normal rhythm, normal heart sounds. Absent: systolic murmur, diastolic murmur, rubs, gallop, clicks GI/Abdominal exam: Present: soft, normal bowel sounds. Absent: distended, tenderness, guarding, rebound, rigid Extremities exam: Present: normal inspection, full ROM, normal capillary refill. Absent: tenderness, pedal edema, joint swelling, calf tenderness Back exam: Present: normal inspection Neurological exam: Present: alert, oriented X3, CN II-XII intact Psychiatric exam: Present: normal affect, normal mood Skin exam: Present: warm, dry, intact, normal color. Absent: rash Course Vital Signs 06/05/18 06/05/18 06/05/18 22:17 23:35 23:40 Temperature 98.7 F Pulse Rate 91 78 Respiratory 16 16 Rate Blood Pressure 114/85 60/44 O2 Sat by Pulse 98 98 97 Oximetry 06/05/18 06/06/18 06/06/18 23:50 00:00 00:10 Temperature Pulse Rate 76 79 77 Respiratory 19 29 H Rate Blood Pressure 95/64 95/64 131/66 O2 Sat by Pulse 99 100 96 Oximetry 06/06/18 06/06/18 06/06/18 00:11 00:20 00:30 Temperature Pulse Rate 92 86 71 Respiratory 30 H 16 19 Rate Blood Pressure 131/66 103/79 103/79 O2 Sat by Pulse 98 97 Oximetry 06/06/18 06/06/18 06/06/18 00:40 00:50 01:00 Temperature Pulse Rate 74 75 71 Respiratory 19 20 20 Rate Blood Pressure 102/67 101/53 101/53 O2 Sat by Pulse 97 98 99 Oximetry 06/06/18 06/06/18 06/06/18 01:10 01:20 01:30 Temperature Pulse Rate 75 77 77 Respiratory 22 24 28 H Rate Blood Pressure 103/53 87/47 87/47 O2 Sat by Pulse 97 97 97 Oximetry 06/06/18 06/06/18 01:40 01:50 Temperature 98.0 F Pulse Rate 70 79 Respiratory 17 22 Rate Blood Pressure 92/51 107/73 O2 Sat by Pulse 98 99 Oximetry [facility] Patient is a well-appearing 27-year-old female presents for short stay with 1 month of chest pain and fatigue. Patient this time as normal EKG. Normal lab work. Patient had normal chest x-ray. Patient otherwise appears clinically well. Troponin test CBC were unremarkable. Discussed patient's pain seems to be reproducible on exam. Discussed concerns for costochondritis. I discussed the Patient needs follow-up with primary care doctor further operation for chronic fatigue. Patient agrees to treatment plan will comply. Return parameters were discussed. Disposition Clinical Impression: Costochondral chest pain Disposition: HOME SELF-CARE Condition: Good Instructions (If sedation given, give patient instructions): Costochondritis (ED) Additional Instructions: Take Motrin and Tylenol for pain. Follow-up with PCP. Return to ED if any alarming signs or symptoms occur. Prescriptions: Ibuprofen 600 mg PO TID #30 tablet methylPREDNISolone Dose Pack [Medrol Dose Pack] 4 mg PO DIRECTED #21 package Is patient prescribed a controlled substance at d/c from ED?: No Referrals: Jeronimo Wilson MD [Primary Care Provider] - 1-2 days Time of Disposition: 01:30
[2018-06-06 01:54] VITALS: BP 107/73; PULSE 79; RESP 22; TEMP 98
== END 2018-06-06 01:54 | disposition home or self-care (01) ==
LOC: EC 21:49
DX: R07.1 Chest pain on breathing (principal); R53.83 Other fatigue
CPT/HCPCS: 36415; 71046; 80053; 83735; 84484; 85025; 85610; 85730; 93005; 96360; 99285

== ENCOUNTER 2018-08-08 02:09 | Emergency (ER) | payer OTHER ==
[2018-08-08 02:20] VITALS: RESP 18
--- NOTE | 2018-08-08 03:32 | ED ---
Headache HPI - General Chief Complaint: Headache Stated Complaint: Migraine Time Seen by Provider: 08/08/18 03:31 Mode of arrival: ambulatory Limitations: no limitations - History of Present Illness Initial Comments: Patient's 27-year-old female who presents to the emergency department today for evaluation of 1 week of right-sided pressure-like headache. Patient reports she has a history of chronic headaches however this one is much more severe than usual this much worse pressure. Patient reports she's been taking Excedrin and Motrin throughout the week with minimal improvement. That she feels like her vision is blurred she saw ophthalmology today and was advised that her vision is normal and that she needed to be evaluated for her headache. MD Complaint: headache -: days(s) Onset Description: gradual Location: right Severity: moderate Quality: aching, throbbing Consistency: constant Improves With: nothing Worsens With: none Treatments Prior to Arrival: Acetaminophen, Ibuprofen - Related Data Previous Rx's Medication Instructions Recorded Amoxicillin 500 mg PO Q12HR 10 Days #20 cap 05/18/18 Ibuprofen 600 mg PO TID #30 tablet 06/06/18 methylPREDNISolone Dose Pack 4 mg PO DIRECTED #21 package 06/06/18 [Medrol Dose Pack] Allergies Allergy/AdvReac Type Severity Reaction Status Date / Time No Known Allergies Allergy Verified 08/08/18 02:19 Review of Systems ROS Statement: Those systems with pertinent positive or pertinent negative responses have been documented in the HPI. ROS Other: All systems not noted in ROS Statement are negative. Past Medical History Past Medical History: Asthma, GERD/Reflux Additional Past Medical History / Comment(s): migraine, History of Any Multi-Drug Resistant Organisms: None Reported Past Surgical History: Section Past Anesthesia/Blood Transfusion Reactions: No Reported Reaction Past Psychological History: Anxiety Smoking Status: Never smoker Past Alcohol Use History: None Reported Past Drug Use History: None Reported - Past Family History Mother Family Medical History: No Reported History General Exam - General Exam Comments Initial Comments: Physical Exam GENERAL: Patient is well-developed and well-nourished. Patient is nontoxic and well- hydrated and is in no distress. HENT: Normocephalic, Atraumatic. TMs normal bilaterally EYES: PERRL, EOMI No papilledema PULMONARY: Unlabored respirations. No audible rales rhonchi or wheezing was noted. CARDIOVASCULAR: There is a regular rate and rhythm without any murmurs gallops or rubs. ABDOMEN: Soft and nontender with normal bowel sounds. SKIN: Skin is clear with no lesions or rashes and otherwise unremarkable. : Deferred NEUROLOGIC: Patient is alert and oriented x3. Moving all extremities spontaneously MUSCULOSKELETAL: Normal extremities with adequate strength and full range of motion. No lower extremity swelling or edema. No calf tenderness. PSYCHIATRIC: Normal psychiatric evaluation. Limitations: no limitations Course Vital Signs 08/08/18 02:16 Temperature 98.9 F Pulse Rate 75 Respiratory 18 Rate Blood Pressure 110/71 O2 Sat by Pulse 98 Oximetry Medical Decision Making - Medical Decision Making The patient was seen and evaluated history is obtained from the patient This is an obese female with a history of chronic headaches presenting with a headache that is worse and more consistent than usual. Headache is described as a constant pressure pulsating on the right side of her head. Imaging was ordered CT results and with no acute findings no evidence of hydrocephalus mass or edema Medications were ordered Was reevaluated and was noted to be sleeping comfortably. On arrival of the patient discuss results with the patient states that she does think this is related to her sinuses she does have a lot of pressure. She reports she feels pressure in her ear. Upon reexamination there is fluid in her ear but no signs of infection patient was reassured of this. A sign patient states that her headache is resolved and she is comfortable with the plan for discharge home. Supportive care for sinusitis was discussed. The results of oral hydration was discussed. Patient was discharged home in stable condition with the plan to initiate care with [id number] medications for her sinusitis and follow-up with primary care. - Lab Data Lab Results 08/08/18 08/08/18 Range/Units 02:20 02:20 Urine Color Light Yellow Urine Appearance Clear (Clear) Urine pH 5.0 (5.0-8.0) Ur Specific [place] 1.010 (1.001-1.035) Urine Protein Negative (Negative) Urine Glucose (UA) Negative (Negative) Urine Ketones Negative (Negative) Urine Blood Trace H (Negative) Urine Nitrite Negative (Negative) Urine Bilirubin Negative (Negative) Urine Urobilinogen <2.0 (<2.0) mg/dL Ur Leukocyte Esterase Negative (Negative) Urine RBC <1 (0-5) /hpf Urine WBC <1 (0-5) /hpf Ur Squamous Epith Cells 1 (0-4) /hpf Urine Mucus Rare H (None) /hpf Urine Sperm Occasional H (None) /hpf Urine HCG, Qual Not Detected (Not Detectd) Disposition Clinical Impression: Sinusitis, Headache Disposition: HOME SELF-CARE Condition: Stable Instructions (If sedation given, give patient instructions): Acute Headache (ED) Is patient prescribed a controlled substance at d/c from ED?: No Referrals: Jeronimo Wilson MD [Primary Care Provider] - 1-2 days
[2018-08-08 03:40] LABS: Appearance,Urine Clear (Clear); Bilirubin,Urine Negative (Negative); Blood,Urine Trace (Negative); Color,Urine Light Yellow; Glucose,Urine (UA) Negative (Negative); Ketones,Urine Negative (Negative); Leukocyte Esterase,Urine Negative (Negative); Mucus,Urine Rare /hpf; Nitrite,Urine Negative (Negative); Protein,Urine Negative (Negative); RBC,Urine <1 /hpf (0-5); Sperm,Urine Occasional /hpf; Squamous Epithelial Cell,Urine 1 /hpf (0-4); Urobilinogen,Urine <2.0 mg/dL (<2.0)
[2018-08-08] MEDS ORDERED: METOCLOPRAMIDE 5 MG/ML 2 ML VIAL IVP STA (04:36)
[2018-08-08] MEDS ORDERED: diphenhydrAMINE 50 MG/ML 1 ML VIAL IVP STA (04:36)
[2018-08-08] MEDS ORDERED: KETOROLAC 30 MG/ML 1 ML VIAL IVP ONE (04:36)
--- NOTE | 2018-08-08 04:55 | CT ---
EXAM: CT Head Without Intravenous Contrast CLINICAL HISTORY: ITS.REASON CT Reason: Pain TECHNIQUE: Axial computed tomography images of the head/brain without intravenous contrast. CTDI is 50 mGy and DLP is 1083 mGy-cm. This CT exam was performed using one or more of the following dose reduction techniques: automated exposure control, adjustment of the mA and/or kV according to patient size, and/or use of iterative reconstruction technique. COMPARISON: 10/18/14 CT head FINDINGS: Brain: No hemorrhage, large hypodensity, or mass effect. Partially empty sella. Ventricles: No hydrocephalus. Bones/joints: Unremarkable. Soft tissues: Unremarkable. Sinuses: Unremarkable. Mastoid air cells: Clear. IMPRESSION: No acute hemorrhage, hydrocephalus, or mass effect.
[2018-08-08 06:13] VITALS: BP 134/74; PULSE 71; TEMP 97
== END 2018-08-08 06:13 | disposition home or self-care (01) ==
LOC: EC 02:09
DX: J32.9 Chronic sinusitis, unspecified (principal); Z86.69 Personal history of other diseases of the nervous system and sense organs
CPT/HCPCS: 81001; 81025; 70450; 99284; 96374; 96375 ×2; J1200; J2765; J1885

== ENCOUNTER → 2018-08-14 | Outpatient (CLI) | payer OTHER ==
--- NOTE | 2018-08-14 13:06 | MM ---
Reason for exam: clinical finding. History: Family history of breast cancer in maternal grandmother at age 68. Took hormonal contraceptives for 3 months. Indicated problem(s): pain in both breasts. Physical Findings: Nurse did not find any significant physical abnormalities on exam. MG Diagnostic Mammo w CAD CEM Bilateral CC and MLO view(s) were taken. There are scattered fibroglandular densities. Global asymmetries on the right superiorly and subareolar. Precautionary ultrasound recommended. No discrete abnormality on the left. These results were verbally communicated with the patient and result sheet given to the patient on 08/14/18. ASSESSMENT: Incomplete: need additional imaging evaluation, BI-RAD 0 RECOMMENDATION: Ultrasound of the right breast.
--- NOTE | 2018-08-14 13:07 | USB ---
Reason for exam: additional evaluation requested from abnormal screening. History: Family history of breast cancer in maternal grandmother at age 68. Took hormonal contraceptives for 3 months. US Breast RT Right complete breast ultrasound includes all four quadrants, the retroareolar region and axilla. Finding demonstrates no cystic or solid lesion seen. Dense tissue noted upper outer quadrant. These results were verbally communicated with the patient and result sheet given to the patient on 08/14/18. ASSESSMENT: Negative, BI-RAD 1 RECOMMENDATION: Routine screening mammogram of both breasts at age 41. Unless clinical indication to start sooner. Manage on a clinical basis with regard to breast pain.
== END | disposition home or self-care (01) ==
LOC: RADMAMWWP 10:41
PROVIDERS: ATTEND Internal Medicine
DX: N64.4 Mastodynia (principal)
CPT/HCPCS: 77066

== ENCOUNTER 2018-08-17 18:41 | Emergency (ER) | payer OTHER ==
[2018-08-17 18:56] VITALS: BP 119/78; PULSE 69; RESP 18; TEMP 98.4
--- NOTE | 2018-08-17 20:02 | XR ---
EXAMINATION TYPE: XR chest 2V DATE OF EXAM: 08/17/2018 COMPARISON: 06/05/2018 HISTORY: Right upper quadrant pain TECHNIQUE: Frontal and lateral views of the chest are obtained. FINDINGS: Heart and mediastinum are normal. Lungs are clear. Diaphragm is normal. There are chest le ads. Bony thorax is normal. IMPRESSION: Normal chest. No change.
[2018-08-17 20:14] LABS: Appearance,Urine Clear (Clear); Bilirubin,Urine Negative (Negative); Blood,Urine Negative (Negative); Color,Urine Yellow; Glucose,Urine (UA) Negative (Negative); Ketones,Urine Trace (Negative); Leukocyte Esterase,Urine Small (Negative); Mucus,Urine Rare /hpf; Nitrite,Urine Negative (Negative); PH, Urine 6.5 (5.0-8.0); Protein,Urine Trace (Negative); RBC,Urine 2 /hpf (0-5); Sperm,Urine Rare /hpf; Squamous Epithelial Cell,Urine 9 /hpf (0-4); Urobilinogen,Urine <2.0 mg/dL (<2.0); WBC,Urine 1 /hpf (0-5)
[2018-08-17 20:33] LABS: Basophils % (A) 0 %; Eosinophils # (A) 0.2 k/uL (0-0.7); Eosinophils % (A) 3 %; HCT 37.3 % (34.0-46.0); HGB 11.9 gm/dL (11.4-16.0); Lymphocytes # (A) 3.1 k/uL (1.0-4.8); Lymphocytes % (A) 43 %; MCV 90.6 fL (80.0-100.0); Mean Platelet Volume 7.5; Monocytes # (A) 0.2 k/uL (0-1.0); Monocytes % (A) 3 %; Neutrophils # (A) 3.4 k/uL (1.3-7.7); Neutrophils % (A) 48 %; Platelet Count 304 k/uL (150-450); RBC 4.11 m/uL (3.80-5.40); RDW 12.2 % (11.5-15.5)
[2018-08-17 20:45] LABS: ALT 20 U/L (9-52); AST 19 U/L (14-36); African American GFR (CKD) >90 (>60 ml/min/1.73 sqM); Albumin 4.5 g/dL (3.5-5.0); Alkaline Phosphatase 91 U/L (38-126); Amylase 77 U/L (30-110); Anion Gap 11 mmol/L; Blood Urea Nitrogen 11 mg/dL (7-17); Calcium 9.4 mg/dL (8.4-10.2); Carbon Dioxide 22 mmol/L (22-30); Chloride 108 mmol/L (98-107); Glucose 79 mg/dL (74-99); Lipase 92 U/L (23-300); Potassium 4.5 mmol/L (3.5-5.1); Sodium 141 mmol/L (137-145); Total Bilirubin 0.4 mg/dL (0.2-1.3)
--- NOTE | 2018-08-17 20:50 | US ---
EXAMINATION TYPE: US abdomen limited DATE OF EXAM: 08/17/2018 COMPARISON: NONE CLINICAL HISTORY: RUQ pain. RUQ pain x 1 week. EXAM MEASUREMENTS: Liver Length: 15.9 cm Gallbladder Wall: 0.27 cm CBD: 0.33 cm Right Kidney: 11.6 x 5.9 x 4.1 cm Limited due to body habitus. Pancreas: wnl Liver: wnl Gallbladder: wnl Evidence for sonographic Holland's sign: no CBD: wnl Right Kidney: Anechoic area seen upper pole measurin.0 x 1.1 x 0.9 cm. IMPRESSION: No gallstones or dilated ducts. Small right renal cortical cyst.
--- NOTE | 2018-08-17 21:20 | ED ---
Abdominal Pain HPI - General Chief Complaint: Abdominal Pain Stated Complaint: Flank Pain Time Seen by Provider: 08/17/18 18:57 Source: patient Mode of arrival: ambulatory Limitations: no limitations - History of Present Illness Initial Comments: 27-year-old female presenting for multiple complaints. Patient states she has had a sharp/pulling sensation from her right shoulder across her right breast towards the right upper quadrant for the past month. She staets is occurs most the day and notes no pattern. She states she has had multiple evaluations including 2 CT angiography's of the chest at [facility]. Patient states this is still ongoing she denies any shortness of breath. Patient denies any hemoptysis lower extremity swelling history of cancer or DVT. Patient denies any clotting disorders. Patient states that she has had some nausea she denies . Patient denies any fever or chills or night sweats. Patient denies any significant diarrhea she denies any lower abdominal pain or pelvic pain stress any vaginal bleeding. Patient denies any trauma to the chest. Patient states she was also concerned of breast cancer and has had an outpatient breast study which she states was negative. Patient states she is concerned that the symptoms are persisting and presented to the ER for evaluation. Upon arrival patient appears well, HR WNL, oxygenating well on RA. No evidence of distress or discomfort. Well appearing. Pt denies DM, HTN, history of premature CAD in family members. - Related Data Home Medications Medication Instructions Recorded Confirmed methylPREDNISolone [Medrol Dose See Taper PO DIRECTED 08/17/18 08/17/18 Pack] Allergies Allergy/AdvReac Type Severity Reaction Status Date / Time No Known Allergies Allergy Verified 08/17/18 21:29 Review of Systems ROS Statement: Those systems with pertinent positive or pertinent negative responses have been documented in the HPI. ROS Other: All systems not noted in ROS Statement are negative. Past Medical History Past Medical History: Asthma, GERD/Reflux Additional Past Medical History / Comment(s): migraine, History of Any Multi-Drug Resistant Organisms: None Reported Past Surgical History: Section Past Anesthesia/Blood Transfusion Reactions: No Reported Reaction Past Psychological History: Anxiety Smoking Status: Never smoker Past Alcohol Use History: None Reported Past Drug Use History: None Reported - Past Family History Mother Family Medical History: No Reported History General Exam - General Exam Comments Initial Comments: General: The patient is awake and alert, in no distress, and does not appear acutely ill. Eye: +3 mm pupils are equal, round and reactive to light, extra-ocular mo vements are intact. No nystagmus. There is normal conjunctiva bilaterally. No signs of icterus. Ears, nose, mouth and throat: There are moist mucous membranes and no oral lesions. Neck: The neck is supple, there is no tenderness or JVD. Cardiovascular: There is a regular rate and rhythm. No murmur, rub or gallop is appreciated. Respiratory: Lungs are clear to auscultation, respirations are non-labored, breath sounds are equal. No wheezes, stridor, rales, or rhonchi. Gastrointestinal: Soft, non-distended, non-tender abdomen without masses or organomegaly noted. There is no rebound or guarding present. No CVA tenderness. Bowel sounds are unremarkable. Musculoskeletal: Normal ROM, no tenderness. Strength 5/5. Sensation intact. Pulses equal bilaterally 2+. Neurological: A&O x 3. CN II-XII intact, There are no obvious motor or sensory deficits. Coordination appears grossly intact. Speech is normal. Skin: Skin is warm and dry and no rashes or lesions are noted. No LE edema. Psychiatric: Cooperative, appropriate mood & affect, normal judgment. Limitations: no limitations Course Vital Signs 08/17/18 18:54 Temperature 98.4 F Pulse Rate 69 Respiratory 18 Rate Blood Pressure 119/78 O2 Sat by Pulse 99 Oximetry Medical Decision Making - Medical Decision Making Well-appearing to a 27-year-old female presenting for right-sided chest pain that increases with inspiration. She states has been constant for the past month. She states there has been no change in characteristic. She states is persistent. Patient has had [address] angiography at outside facility. I did review the imaging study results up obtaining records. Patient states she does not want another CT study. Patient states it does seem to go toward the right under breast. no significant RUQ pain on exam, very minimal. Patient denies the pain increasing with ambulation. Patient states she can breathe well however when she takes a deep breath she feels pain in the anterior chest wall the right breast. Patient states she has had mammograms that were negative outpatient. EKG no acute findings, pulmonary disease pattern was noted. Patient has no ST elevation or depression,no history DM of HTN. No history of family his tory of premature CAD. Patient is PERC (-). HR WNL O2 saturation WNL. No recent surgery, cancer, hemoptysis or leg swelling. Chest x-ray today revealed no acute abnormalities. Troponin negative. At this time I feel patient's pain is atypical. She states she believes it may be due to her breast size. I instructed patient to follow up outpatient with cardiology for stress testing of the patient's pain does not appear to be typical does not increase with exertion and is more sharp in nature. Patient is agreeable care plan discharge this time. Case discussed with Dr. Perez who is agreeable with care plan and discharge at this time. - Lab Data Result diagrams: 08/17/18 20:10 08/17/18 20:10 Lab Results 08/17/18 08/17/18 08/17/18 Range/Units 20:00 20:10 20:10 WBC 7.0 (3.8-10.6) k/uL RBC 4.11 (3.80-5.40) m/uL Hgb 11.9 (11.4-16.0) gm/dL Hct 37.3 (34.0-46.0) % MCV 90.6 (80.0-100.0) fL MCH 29.0 (25.0-35.0) pg MCHC 32.0 (31.0-37.0) g/dL RDW 12.2 (11.5-15.5) % Plt Count 304 (150-450) k/uL Neutrophils % 48 % Lymphocytes % 43 % Monocytes % 3 % Eosinophils % 3 % Basophils % 0 % Neutrophils # 3.4 (1.3-7.7) k/uL Lymphocytes # 3.1 (1.0-4.8) k/uL Monocytes # 0.2 (0-1.0) k/uL Eosinophils # 0.2 (0-0.7) k/uL Basophils # 0.0 (0-0.2) k/uL Sodium 141 (137-145) mmol/L Potassium 4.5 (3.5-5.1) mmol/L Chloride 108 H (98-107) mmol/L Carbon Dioxide 22 (22-30) mmol/L Anion Gap 11 mmol/L BUN 11 (7-17) mg/dL Creatinine 0.63 (0.52-1.04) mg/dL Est GFR (CKD-EPI)AfAm >90 (>60 ml/min/1.73 sqM) Est GFR (CKD-EPI)NonAf >90 (>60 ml/min/1.73 sqM) Glucose 79 (74-99) mg/dL Calcium 9.4 (8.4-10.2) mg/dL Total Bilirubin 0.4 (0.2-1.3) mg/dL AST 19 (14-36) U/L ALT 20 (9-52) U/L Alkaline Phosphatase 91 (38-126) U/L Troponin I (0.000-0.034) ng/mL Total Protein 8.0 (6.3-8.2) g/dL Albumin 4.5 (3.5-5.0) g/dL Amylase 77 (30-110) U/L Lipase 92 (23-300) U/L Urine Color Yellow Urine Appearance Clear (Clear) Urine pH 6.5 (5.0-8.0) Ur Specific [place] 1.030 (1.001-1.035) Urine Protein Trace H (Negative) Urine Glucose (UA) Negative (Negative) Urine Ketones Trace H (Negative) Urine Blood Negative (Negative) Urine Nitrite Negative (Negative) Urine Bilirubin Negative (Negative) Urine Urobilinogen <2.0 (<2.0) mg/dL Ur Leukocyte Esterase Small H (Negative) Urine RBC 2 (0-5) /hpf Urine WBC 1 (0-5) /hpf Ur Squamous Epith Cells 9 H (0-4) /hpf Urine Mucus Rare H (None) /hpf Urine Sperm Rare (None) /hpf 08/17/18 Range/Units 20:10 WBC (3.8-10.6) k/uL RBC (3.80-5.40) m/uL Hgb (11.4-16.0) gm/dL Hct (34.0-46.0) % MCV (80.0-100.0) fL MCH (25.0-35.0) pg MCHC (31.0-37.0) g/dL RDW (11.5-15.5) % Plt Count (150-450) k/uL Neutrophils % % Lymphocytes % % Monocytes % % Eosinophils % % Basophils % % Neutrophils # (1.3-7.7) k/uL Lymphocytes # (1.0-4.8) k/uL Monocytes # (0-1.0) k/uL Eosinophils # (0-0.7) k/uL Basophils # (0-0.2) k/uL Sodium (137-145) mmol/L Potassium (3.5-5.1) mmol/L Chloride (98-107) mmol/L Carbon Dioxide (22-30) mmol/L Anion Gap mmol/L BUN (7-17) mg/dL Creatinine (0.52-1.04) mg/dL Est GFR (CKD-EPI)AfAm (>60 ml/min/1.73 sqM) Est GFR (CKD-EPI)NonAf (>60 ml/min/1.73 sqM) Glucose (74-99) mg/dL Calcium (8.4-10.2) mg/dL Total Bilirubin (0.2-1.3) mg/dL AST (14-36) U/L ALT (9-52) U/L Alkaline Phosphatase (38-126) U/L Troponin I <0.012 (0.000-0.034) ng/mL Total Protein (6.3-8.2) g/dL Albumin (3.5-5.0) g/dL Amylase (30-110) U/L Lipase (23-300) U/L Urine Color Urine Appearance (Clear) Urine pH (5.0-8.0) Ur Specific [place] (1.001-1.035) Urine Protein (Negative) Urine Glucose (UA) (Negative) Urine Ketones (Negative) Urine Blood (Negative) Urine Nitrite (Negative) Urine Bilirubin (Negative) Urine Urobilinogen (<2.0) mg/dL Ur Leukocyte Esterase (Negative) Urine RBC (0-5) /hpf Urine WBC (0-5) /hpf Ur Squamous Epith Cells (0-4) /hpf Urine Mucus (None) /hpf Urine Sperm (None) /hpf - EKG Data EKG Comments: Ventricular rate 74 bpm, NV interval 184 ms, QRS duration 86 most seconds, QT/QTC 392/435 ms. This is normal sinus. There is no T-wave inversions that are nonspecific. No ST elevation or depression. Normal R-wave progression. Compared to that of 06/05/18 no acute changes. EKG reviewd by attending interpretted by myself. Disposition Clinical Impression: Atypical chest pain Disposition: HOME SELF-CARE Condition: Good Instructions (If sedation given, give patient instructions): Chest Pain (ED), Chest Wall Pain (ED) Additional Instructions: Please use medication as discussed. Please follow-up with family doctor in the next 2 days, I recommend stress testing. Please return to emergency room if the symptoms increase or worsen or for any other concerns. Is patient prescribed a controlled substance at d/c from ED?: No Referrals: Jeronimo Wilson MD [Primary Care Provider] - 1-2 days Benjamin Clifton MD [STAFF PHYSICIAN] - 1-2 days Time of Disposition: 21:45
== END 2018-08-17 22:13 | disposition home or self-care (01) ==
LOC: EC 18:41
DX: R07.89 Other chest pain (principal); J45.909 Unspecified asthma, uncomplicated; Z79.899 Other long term (current) drug therapy
CPT/HCPCS: 36415; 71046; 76705; 80053; 81001; 82150; 83690; 84484; 85025; 93005; 99284

== ENCOUNTER 2018-08-25 20:28 | Emergency (ER) | payer OTHER ==
[2018-08-25] MEDS ORDERED: ONDANSETRON 4 MG/2 ML VIAL IVP STA (22:05)
[2018-08-25] MEDS ORDERED: SODIUM CHLORIDE 0.9% 1,000 ML IV ONE (22:05)
[2018-08-25] MEDS ORDERED: MECLIZINE 12.5 MG TAB PO STA (22:06)
--- NOTE | 2018-08-25 22:36 | ED ---
General Adult HPI - General Chief complaint: Nausea/Vomiting/Diarrhea Stated complaint: N & V Time Seen by Provider: 08/25/18 21:46 Source: patient Mode of arrival: ambulatory Limitations: no limitations - History of Present Illness Initial comments: 27-year-old female presenting with multiple complaints. Patient states last 1 month she has had intermittent episodes of headaches with room spinning dizziness. She states she's been having nausea and vomiting sporadically and intermittently as well as currently lost 20 pounds unintentionally. He has a history of migraines but they have never been accompanied with dizziness. He is seen her primary care physician who is referred her to neurology but they have not culture yet to make an appointment. She denies any fevers chills, vision changes, focal weakness. Patient states she also has been experiencing worsening hoarseness and has an ultrasound of her thyroid scheduled for next week. She states she has not been taking anything for her headache or her GI symptoms. She states she's had multiple negative head CTs as well as a negative GI workup. Patient states she came off of Depo-Provera in November and has only had one period since then. Patient admits to chest tightness but denies shortness of breath. Denies history of PE/DVT, recent surgery, active CA, hormone therapy, or history of TX. . - Related Data Previous Rx's Medication Instructions Recorded Meclizine [Antivert] 25 mg PO TID PRN #30 tab 08/26/18 Allergies Allergy/AdvReac Type Severity Reaction Status Date / Time No Known Allergies Allergy Verified 08/17/18 21:29 Review of Systems ROS Statement: Those systems with pertinent positive or pertinent negative responses have been documented in the HPI. Review of Systems Constitutional: Denies fever, chills Eyes: Denies change in vision, Denies pain Ears, nose, mouth, throat: Denies headaches, Denies sore throat Cardiovascular: Denies chest pain. Denies palpitations Respiratory: Denies shortness of breath, Denies cough Gastrointestinal: Denies abdominal pain. Positive nausea, vomiting. Denies diarrhea. Genitourinary: Denies hematuria, Denies infections Musculoskeletal: Denies pain, Denies swelling Integumentary: Denies rash Neurological: Positive headache. Denies focal weakness, focal numbness Psychiatric: Denies anxiety, Denies depression Hematologic/Lymphatic: Denies easy bleeding or bruising ROS Other: All systems not noted in ROS Statement are negative. Past Medical History Past Medical History: Asthma, GERD/Reflux Additional Past Medical History / Comment(s): migraine, History of Any Multi-Drug Resistant Organisms: None Reported Past Surgical History: Section Past Anesthesia/Blood Transfusion Reactions: No Reported Reaction Past Psychological History: Anxiety Smoking Status: Never smoker Past Alcohol Use History: None Reported Past Drug Use History: None Reported - Past Family History Mother Family Medical History: No Reported History General Exam - General Exam Comments Initial Comments: General: Awake, alert, No acute Distress HENT: Normocephalic. Atraumatic. Bilateral middle ear effusions Eyes: PERRL. EOMI. No scleral icterus. No injected conjunctiva Neck: Full ROM Chest/Lungs: Clear to auscultation bilaterally. No wheezing, rhonchi, or rales Cardiac: Regular rate, rhythm. No murmurs or rubs Abdomen/GI: Soft, nontender, nondistended. No rebound, guarding, or rigidity. Musculoskeletal: Full ROM Skin: Warm, dry, intact Neurologic: A/Ox3, no weakness, no sensory deficit, no abnormal gait, no coordination deficit Limitations: no limitations Course Vital Signs 08/25/18 08/25/18 08/26/18 21:20 23:21 00:10 Temperature 98.3 F 98.0 F Pulse Rate 81 74 Respiratory 20 16 18 Rate Blood Pressure 110/73 117/62 O2 Sat by Pulse 99 100 Oximetry EKG Findings - EKG Comments: EKG Findings:: EKG shows normal sinus rhythm and rate [address] segment elevation, depression. No prolonged QT/QTc or TN interval. No dysrythmia noted. Medical Decision Making - Medical Decision Making 27 yoF presenting with room spinning dizziness. On initial exam the patient is awake, alert, and in NAD. VSS. She has had multiple negative head CTs in the past. Her symptoms are not consistent with central vertigo. She has no chest pain at this time. EKG was done secondary to dizziness. her laboratory workup was unremarkable. Her symptoms completely resolved with Antivert. She has multiple follow up appointments scheduled. No further emergent workup indicated. The patient was given return to ED instructions. They were instructed to follow up with their primary care provider. Stable for discharge at this time. - Lab Data Result diagrams: 08/25/18 23:05 08/25/18 23:05 Lab Results 08/25/18 08/25/18 Range/Units 23:05 23:05 WBC 7.1 (3.8-10.6) k/uL RBC 4.15 (3.80-5.40) m/uL Hgb 12.2 (11.4-16.0) gm/dL Hct 38.5 (34.0-46.0) % MCV 92.7 (80.0-100.0) fL MCH 29.4 (25.0-35.0) pg MCHC 31.7 (31.0-37.0) g/dL RDW 12.1 (11.5-15.5) % Plt Count 263 (150-450) k/uL Neutrophils % 51 % Lymphocytes % 42 % Monocytes % 3 % Eosinophils % 2 % Basophils % 0 % Neutrophils # 3.6 (1.3-7.7) k/uL Lymphocytes # 3.0 (1.0-4.8) k/uL Monocytes # 0.2 (0-1.0) k/uL Eosinophils # 0.2 (0-0.7) k/uL Basophils # 0.0 (0-0.2) k/uL Sodium 140 (137-145) mmol/L Potassium 4.1 (3.5-5.1) mmol/L Chloride 107 (98-107) mmol/L Carbon Dioxide 22 (22-30) mmol/L Anion Gap 11 mmol/L BUN 15 (7-17) mg/dL Creatinine 0.60 (0.52-1.04) mg/dL Est GFR (CKD-EPI)AfAm >90 (>60 ml/min/1.73 sqM) Est GFR (CKD-EPI)NonAf >90 (>60 ml/min/1.73 sqM) Glucose 86 (74-99) mg/dL Calcium 9.9 (8.4-10.2) mg/dL Total Bilirubin 0.4 (0.2-1.3) mg/dL Conjugated Bilirubin 0.0 (0.0-0.3) mg/dL Unconjugated Bilirubin 0.4 (0.0-1.1) mg/dL Delta Bilirubin 0.0 (0.0-0.2) mg/dL AST 18 (14-36) U/L ALT 18 (9-52) U/L Alkaline Phosphatase 83 (38-126) U/L Total Protein 8.1 (6.3-8.2) g/dL Albumin 4.6 (3.5-5.0) g/dL Lipase 84 (23-300) U/L HCG, Qual Not Detected Disposition Clinical Impression: Dizziness, Middle ear effusion Disposition: HOME SELF-CARE Condition: Good Instructions (If sedation given, give patient instructions): Vertigo (ED) Prescriptions: Meclizine [Antivert] 25 mg PO TID PRN #30 tab PRN Reason: dizziness Is patient prescribed a controlled substance at d/c from ED?: No Referrals: Jeronimo Wilson MD [Primary Care Provider] - 1-2 days
[2018-08-25] MEDS ORDERED: ONDANSETRON ODT 4 MG TAB PO STA (23:36)
[2018-08-25 23:37] LABS: Basophils % (A) 0 %; Eosinophils # (A) 0.2 k/uL (0-0.7); Eosinophils % (A) 2 %; HCT 38.5 % (34.0-46.0); HGB 12.2 gm/dL (11.4-16.0); Lymphocytes % (A) 42 %; MCH 29.4 pg (25.0-35.0); MCHC 31.7 g/dL (31.0-37.0); MCV 92.7 fL (80.0-100.0); Mean Platelet Volume 7.1; Monocytes # (A) 0.2 k/uL (0-1.0); Monocytes % (A) 3 %; Neutrophils # (A) 3.6 k/uL (1.3-7.7); Neutrophils % (A) 51 %; Platelet Count 263 k/uL (150-450); RBC 4.15 m/uL (3.80-5.40); RDW 12.1 % (11.5-15.5); WBC 7.1 k/uL (3.8-10.6)
[2018-08-25 23:48] LABS: ALT 18 U/L (9-52); AST 18 U/L (14-36); African American GFR (CKD) >90 (>60 ml/min/1.73 sqM); Albumin 4.6 g/dL (3.5-5.0); Alkaline Phosphatase 83 U/L (38-126); Anion Gap 11 mmol/L; Bilirubin,Unconjugated 0.4 mg/dL (0.0-1.1); Blood Urea Nitrogen 15 mg/dL (7-17); Calcium 9.9 mg/dL (8.4-10.2); Carbon Dioxide 22 mmol/L (22-30); Chloride 107 mmol/L (98-107); Glucose 86 mg/dL (74-99); Lipase 84 U/L (23-300); Potassium 4.1 mmol/L (3.5-5.1); Sodium 140 mmol/L (137-145); Total Bilirubin 0.4 mg/dL (0.2-1.3); Total Protein 8.1 g/dL (6.3-8.2)
[2018-08-26 00:11] LABS: HCG,Qualitative Serum Not Detected
[2018-08-26 00:14] VITALS: BP 117/62; PULSE 74; RESP 18; TEMP 98
== END 2018-08-26 00:10 | disposition home or self-care (01) ==
LOC: EC 20:28
DX: R42 Dizziness and giddiness (principal); H93.8X3 Other specified disorders of ear, bilateral; R51 Headache; R11.2 Nausea with vomiting, unspecified
CPT/HCPCS: 36415; 80048; 80076; 83690; 84703; 85025; 93005; 99284

== ENCOUNTER 2018-09-02 10:05 | Emergency (ER) | payer OTHER ==
[2018-09-02 10:27] VITALS: BP 116/82; PULSE 85; RESP 18; TEMP 98.8
[2018-09-02] MEDS ORDERED: KETOROLAC 60 MG/2 ML VIAL IM STA (11:00)
--- NOTE | 2018-09-02 11:03 | ED ---
ENT HPI - General Chief complaint: ENT Stated complaint: NECK, JAW AND HEAD PAIN RT SIDE Time Seen by Provider: 09/02/18 10:16 Source: patient Mode of arrival: ambulatory Limitations: no limitations - History of Present Illness Initial comments: Patient is a 27-year-old female who presents emergency Department with complaints of right ear and throat pressure 2 months. Patient has been to the ER for similar complaint in the past. Patient states she has a history of migraines but recently received medication has helped with that. Patient states nobody can seem to figure out what is causing her right ear pressure. Patient sees Dr. Wilkerson and was given a neurologist follow-up. She states she has an appointment next week for the neurology. Patient is denying fever, chills, changes in vision, dizziness. Patient states there is no pain with palpation of the right neck she describes it as pressure. No other complaints at this time. - Related Data Home Medications Medication Instructions Recorded Confirmed Fexofenadine/Pseudoephedrine 1 tab PO DAILY PRN 09/02/18 09/02/18 [Bonnie-D 24 Hour Tablet] Montelukast [Singulair] 10 mg PO DAILY 09/02/18 09/02/18 Previous Rx's Medication Instructions Recorded Loratadine 10 mg PO DAILY 30 Days #30 tablet 09/02/18 Allergies Allergy/AdvReac Type Severity Reaction Status Date / Time No Known Allergies Allergy Verified 09/02/18 10:34 Review of Systems ROS Statement: Those systems with pertinent positive or pertinent negative responses have been documented in the HPI. ROS Other: All systems not noted in ROS Statement are negative. Past Medical History Past Medical History: Asthma, GERD/Reflux Additional Past Medical History / Comment(s): migraine, History of Any Multi-Drug Resistant Organisms: None Reported Past Surgical History: Section Past Anesthesia/Blood Transfusion Reactions: No Reported Reaction Past Psychological History: Anxiety Smoking Status: Never smoker Past Alcohol Use History: None Reported Past Drug Use History: None Reported - Past Family History Mother Family Medical History: No Reported History General Exam - General Exam Comments Initial Comments: GENERAL: Well-appearing, well-nourished and in no acute distress. HEAD: Atraumatic, normocephalic. EYES: Pupils equal round and reactive to light, extraocular movements intact, sclera anicteric, conjunctiva are normal. ENT: TMs normal, both TMs slightly bulging, no erythema or fluid behind. nares patent, oropharynx clear without exudates. Moist mucous membranes. NECK: Normal range of motion, supple without lymphadenopathy or JVD. No bruits heard. LUNGS: Breath sounds clear to auscultation bilaterally and equal. No wheezes rales or rhonchi. HEART: Regular rate and rhythm without murmurs, rubs or gallops. ABDOMEN: Soft, nontender, normoactive bowel sounds. No guarding, no rebound. No masses appreciated. : Deferred EXTREMITIES: Normal range of motion, no pitting or edema. No clubbing or cyanosis. NEUROLOGICAL: Cranial nerves II through XII grossly intact. Normal speech, normal gait. PSYCH: Normal mood, normal affect. SKIN: Warm, Dry, normal turgor, no rashes or lesions noted. Limitations: no limitations Course Vital Signs 09/02/18 10:23 Temperature 98.8 F Pulse Rate 85 Respiratory 18 Rate Blood Pressure 116/82 O2 Sat by Pulse 99 Oximetry Medical Decision Making - Medical Decision Making Patient is a 27-year-old female who presents with complaints of right ear and throat pressure. Patient has been here multiple times for similar complaints, and also for migraines and dizziness. Patient has had a normal head CT within the last month. Patient sees Dr. Wilkerson and was recently given a referral for neurology which she has yet to see. Patient states she has an appointment with neurology next week. Patient's exam is completely normal today. Patient was given a shot of Toradol to help relieve the pain and pressure and also given a prescription for Claritin. Patient was given meclizine last week when she was here with Dr. Rea and states she will continue to use that as well. Patient will be discharged home. Patient is in agreement with this plan of care. Return parameters were discussed with patient. Case was discussed with Dr. Contreras. Disposition Clinical Impression: Pressure sensation in right ear Disposition: HOME SELF-CARE Condition: Stable Instructions (If sedation given, give patient instructions): Earache (ED) Additional Instructions: Please return to the Emergency Department if symptoms worsen or any other concerns. Follow-up with neurologist as discussed. Prescriptions: Loratadine 10 mg PO DAILY 30 Days #30 tablet Is patient prescribed a controlled substance at d/c from ED?: No Referrals: Jeronimo Wilson MD [Primary Care Provider] - 1-2 days
== END 2018-09-02 11:14 | disposition home or self-care (01) ==
LOC: EC 10:05
DX: H93.8X1 Other specified disorders of right ear (principal); J45.909 Unspecified asthma, uncomplicated; Z79.899 Other long term (current) drug therapy
CPT/HCPCS: 99283

== ENCOUNTER → 2018-10-20 | Outpatient (CLI) | payer OTHER ==
[2018-10-20 09:46] LABS: Basophils % (A) 1 %; Eosinophils # (A) 0.3 k/uL (0-0.7); Eosinophils % (A) 6 %; HCT 36.8 % (34.0-46.0); Lymphocytes # (A) 1.8 k/uL (1.0-4.8); Lymphocytes % (A) 36 %; MCH 29.8 pg (25.0-35.0); MCHC 32.5 g/dL (31.0-37.0); MCV 91.7 fL (80.0-100.0); Mean Platelet Volume 7.3; Monocytes # (A) 0.2 k/uL (0-1.0); Monocytes % (A) 3 %; Neutrophils # (A) 2.7 k/uL (1.3-7.7); Neutrophils % (A) 54 %; Platelet Count 288 k/uL (150-450); RBC 4.02 m/uL (3.80-5.40); RDW 13.1 % (11.5-15.5); WBC 5.1 k/uL (3.8-10.6)
[2018-10-20 09:48] LABS: Appearance,Urine Clear (Clear); Bilirubin,Urine Negative (Negative); Blood,Urine Negative (Negative); Color,Urine Yellow; Glucose,Urine (UA) Negative (Negative); Ketones,Urine Negative (Negative); Leukocyte Esterase,Urine Negative (Negative); Nitrite,Urine Negative (Negative); Protein,Urine Negative (Negative); Specific Gravity,Urine 1.011 (1.001-1.035); Urobilinogen,Urine <2.0 mg/dL (<2.0)
[2018-10-20 13:56] LABS: Erythrocyte Sedimentation Rate 24 mm/hr (0-20)
[2018-10-20 17:07] LABS: Vitamin D 25 Hydroxy 25.9 ng/mL (30.0-100.0)
[2018-10-20 17:19] LABS: African American GFR (CKD) 138.6 (60.0-200.0); Albumin 4.2 g/dL (3.80-4.90); Albumin/Globulin Ratio 1.62 (1.60-3.17); Anion Gap 6.1 mmol/L (4.00-12.00); BUN/Creat Ratio 12.86 Ratio (12.00-20.00); C Reactive Protein 1.3 mg/dL (0.0-0.8); Calcium 9.2 mg/dL (8.7-10.3); Carbon Dioxide 25.9 mmol/L (21.6-31.8); Chol/HDL Ratio 2.7; Globulin 2.6 g/dL (1.6-3.3); LDL Cholesterol,Calculated 69.2 mg/dL (0.0-131.0); Non-African American GFR(CKD) 119.6 (60.0-200.0); Potassium 4.2 mmol/L (3.5-5.5); Total Bilirubin 0.6 mg/dL (0.3-1.2); Total Protein 6.8 g/dL (6.2-8.2); VLDL Calculation 10.8 mg/dL (5.00-40.00)
[2018-10-20 17:51] LABS: Hepatitis C IgG Antibody Non-Reactive (Non-Reactive)
== END | disposition home or self-care (01) ==
LOC: LABWHC1 09:05
PROVIDERS: ATTEND Internal Medicine
DX: E78.5 Hyperlipidemia, unspecified (principal); D64.9 Anemia, unspecified; E03.9 Hypothyroidism, unspecified; E66.9 Obesity, unspecified; N39.0 Urinary tract infection, site not specified; E55.9 Vitamin D deficiency, unspecified
CPT/HCPCS: 36415; 80053; 80061; 81003; 82306; 82533; 82550; 84439; 84443; 85025; 85652; 86140; 86803

== ENCOUNTER 2018-10-27 16:16 | Emergency (ER) | payer OTHER ==
[2018-10-27 16:22] VITALS: TEMP 97.9
[2018-10-27] MEDS ORDERED: MECLIZINE 12.5 MG TAB PO STA (16:48)
[2018-10-27 17:05] LABS: Basophils % (A) 0 %; Eosinophils # (A) 0.3 k/uL (0-0.7); Eosinophils % (A) 4 %; HGB 11.9 gm/dL (11.4-16.0); Lymphocytes # (A) 2.3 k/uL (1.0-4.8); Lymphocytes % (A) 32 %; MCH 29.7 pg (25.0-35.0); MCHC 31.3 g/dL (31.0-37.0); MCV 94.9 fL (80.0-100.0); Monocytes # (A) 0.2 k/uL (0-1.0); Monocytes % (A) 3 %; Neutrophils # (A) 4.3 k/uL (1.3-7.7); Neutrophils % (A) 61 %; Platelet Count 268 k/uL (150-450); RDW 12.3 % (11.5-15.5); WBC 7.1 k/uL (3.8-10.6)
[2018-10-27 17:20] LABS: African American GFR (CKD) >90 (>60 ml/min/1.73 sqM); Albumin 4.2 g/dL (3.5-5.0); Anion Gap 10 mmol/L; Blood Urea Nitrogen 14 mg/dL (7-17); C Reactive Protein 11.2 mg/L (<10.0); Calcium 9.4 mg/dL (8.4-10.2); Carbon Dioxide 21 mmol/L (22-30); Chloride 109 mmol/L (98-107); Glucose 88 mg/dL (74-99); Sodium 140 mmol/L (137-145)
[2018-10-27 17:21] LABS: Appearance,Urine Clear (Clear); Bilirubin,Urine Negative (Negative); Blood,Urine Large (Negative); Color,Urine Light Red; Glucose,Urine (UA) Negative (Negative); Ketones,Urine Negative (Negative); Leukocyte Esterase,Urine Negative (Negative); Nitrite,Urine Negative (Negative); PH, Urine 5.5 (5.0-8.0); Protein,Urine Trace (Negative); RBC,Urine >182 /hpf (0-5); Specific Gravity,Urine 1.026 (1.001-1.035); Squamous Epithelial Cell,Urine 1 /hpf (0-4); Urobilinogen,Urine <2.0 mg/dL (<2.0)
[2018-10-27 17:21] LABS: ALT 22 U/L (9-52); AST 26 U/L (14-36); Alkaline Phosphatase 71 U/L (38-126); Potassium 4.5 mmol/L (3.5-5.1); Total Bilirubin 0.4 mg/dL (0.2-1.3)
--- NOTE | 2018-10-27 17:44 | ED ---
Dizziness HPI - General Chief Complaint: Dizziness Stated Complaint: Dizziness Time Seen by Provider: 10/27/18 16:27 Source: patient Mode of arrival: ambulatory Limitations: no limitations - History of Present Illness Initial Comments: Patient is a 27-year-old female presenting to the emergency Department with complaints of dizziness that has been ongoing for months now. Patient has been evaluated in the ER on a number of occasions for same complaint. Patient is currently seeing a neurologist and recently had a brain MRI as well as a lot of blood work. Everything has been returning within normal limits. Patient was recently started on an antibiotic for possible sinus infection. Patient states she is still complaining of intermittent dizziness as well is "head pressure." Patient denies nausea, vomiting, fever, chills, chest pain, shortness of breath, LOC. She has no other complaints at this time. Upon arrival to ER her vital signs are stable, afebrile. - Related Data Home Medications Medication Instructions Recorded Confirmed Fexofenadine/Pseudoephedrine 1 tab PO DAILY PRN 09/02/18 09/02/18 [Bonnie-D 24 Hour Tablet] Montelukast [Singulair] 10 mg PO DAILY 09/02/18 09/02/18 Previous Rx's Medication Instructions Recorded Loratadine 10 mg PO DAILY 30 Days #30 tablet 09/02/18 Meclizine [Antivert] 25 mg PO DAILY 20 Days #20 tab 10/27/18 Allergies Allergy/AdvReac Type Severity Reaction Status Date / Time No Known Allergies Allergy Verified 10/27/18 16:19 Review of Systems ROS Statement: Those systems with pertinent positive or pertinent negative responses have been documented in the HPI. ROS Other: All systems not noted in ROS Statement are negative. Past Medical History Past Medical History: Asthma, GERD/Reflux Additional Past Medical History / Comment(s): migraine, History of Any Multi-Drug Resistant Organisms: None Reported Past Surgical History: Section Past Anesthesia/Blood Transfusion Reactions: No Reported Reaction Past Psychological History: Anxiety Smoking Status: Never smoker Past Alcohol Use History: None Reported Past Drug Use History: None Reported - Past Family History Mother Family Medical History: No Reported History General Exam - General Exam Comments Initial Comments: GENERAL: Well-appearing, well-nourished and in no acute distress. HEAD: Atraumatic, normocephalic. EYES: Pupils equal round and reactive to light, extraocular movements intact, sclera anicteric, conjunctiva are normal. ENT: TMs normal, nares patent, oropharynx clear without exudates. Moist mucous membranes. NECK: Normal range of motion, supple without lymphadenopathy or JVD. LUNGS: Breath sounds clear to auscultation bilaterally and equal. No wheezes rales or rhonchi. HEART: Regular rate and rhythm without murmurs, rubs or gallops. ABDOMEN: Soft, nontender, normoactive bowel sounds. No guarding, no rebound. No masses appreciated. : Deferred EXTREMITIES: Normal range of motion, no pitting or edema. No clubbing or cyanosis. NEUROLOGICAL: Cranial nerves II through XII grossly intact. Normal speech, normal gait. PSYCH: Normal mood, normal affect. SKIN: Warm, Dry, normal turgor, no rashes or lesions noted. Limitations: no limitations Course Vital Signs 10/27/18 10/27/18 16:20 18:14 Temperature 97.9 F Pulse Rate 75 70 Respiratory 18 16 Rate Blood Pressure 117/78 119/73 O2 Sat by Pulse 100 100 Oximetry Medical Decision Making - Medical Decision Making Patient is a 27-year-old female presenting with intermittent dizziness for months. Patient has been evaluated in the ER on multiple occasions for same complaint. Patient is currently seeing a neurologist and also ENT and has appointments in the next few weeks for both. Patient's exam is unremarkable today. CBC, CMP are within normal limits. UA is within normal limits. Patient was giving him a trial of meclizine which she has tried in the past. Patient will follow up with neurologist in a few weeks. Return parameters were discussed with the patient she verbalized understanding. Patient is in agr eement with this plan of care. Case discussed with Dr. Gamble. - Lab Data Result diagrams: 10/27/18 16:58 10/27/18 16:58 Lab Results 10/27/18 10/27/18 10/27/18 Range/Units 16:58 16:58 17:04 WBC 7.1 (3.8-10.6) k/uL RBC 4.00 (3.80-5.40) m/uL Hgb 11.9 (11.4-16.0) gm/dL Hct 38.0 (34.0-46.0) % MCV 94.9 (80.0-100.0) fL MCH 29.7 (25.0-35.0) pg MCHC 31.3 (31.0-37.0) g/dL RDW 12.3 (11.5-15.5) % Plt Count 268 (150-450) k/uL Neutrophils % 61 % Lymphocytes % 32 % Monocytes % 3 % Eosinophils % 4 % Basophils % 0 % Neutrophils # 4.3 (1.3-7.7) k/uL Lymphocytes # 2.3 (1.0-4.8) k/uL Monocytes # 0.2 (0-1.0) k/uL Eosinophils # 0.3 (0-0.7) k/uL Basophils # 0.0 (0-0.2) k/uL Sodium 140 (137-145) mmol/L Potassium 4.5 (3.5-5.1) mmol/L Chloride 109 H (98-107) mmol/L Carbon Dioxide 21 L (22-30) mmol/L Anion Gap 10 mmol/L BUN 14 (7-17) mg/dL Creatinine 0.71 (0.52-1.04) mg/dL Est GFR (CKD-EPI)AfAm >90 (>60 ml/min/1.73 sqM) Est GFR (CKD-EPI)NonAf >90 (>60 ml/min/1.73 sqM) Glucose 88 (74-99) mg/dL Calcium 9.4 (8.4-10.2) mg/dL Total Bilirubin 0.4 (0.2-1.3) mg/dL AST 26 (14-36) U/L ALT 22 (9-52) U/L Alkaline Phosphatase 71 (38-126) U/L C-Reactive Protein 11.2 H (<10.0) mg/L Total Protein 8.0 (6.3-8.2) g/dL Albumin 4.2 (3.5-5.0) g/dL Urine Color Light Red Urine Appearance Clear (Clear) Urine pH 5.5 (5.0-8.0) Ur Specific Forbes 1.026 (1.001-1.035) Urine Protein Trace H (Negative) Urine Glucose (UA) Negative (Negative) Urine Ketones Negative (Negative) Urine Blood Large H (Negative) Urine Nitrite Negative (Negative) Urine Bilirubin Negative (Negative) Urine Urobilinogen <2.0 (<2.0) mg/dL Ur Leukocyte Esterase Negative (Negative) Urine RBC >182 H (0-5) /hpf Ur Squamous Epith Cells 1 (0-4) /hpf Disposition Clinical Impression: Light headedness Disposition: HOME SELF-CARE Condition: Stable Instructions (If sedation given, give patient instructions): Dizziness (ED) Additional Instructions: Please return to the Emergency Department if symptoms worsen or any other concerns. Prescriptions: Meclizine [Antivert] 25 mg PO DAILY 20 Days #20 tab Is patient prescribed a controlled substance at d/c from ED?: No Referrals: None,Stated [Primary Care Provider] - 1-2 days
[2018-10-27 18:15] VITALS: BP 119/73; PULSE 70; RESP 16
== END 2018-10-27 18:15 | disposition home or self-care (01) ==
LOC: EC 16:16
DX: R42 Dizziness and giddiness (principal); R51 Headache; J45.909 Unspecified asthma, uncomplicated; Z79.899 Other long term (current) drug therapy; Z86.69 Personal history of other diseases of the nervous system and sense organs
CPT/HCPCS: 36415; 80053; 81001; 85025; 86140; 99284

== ENCOUNTER 2018-11-08 02:07 | Emergency (ER) | payer OTHER ==
[2018-11-08 02:22] VITALS: TEMP 98
[2018-11-08] MEDS ORDERED: IBUPROFEN 400 MG TAB PO STA (03:02)
[2018-11-08] MEDS ORDERED: CYCLOBENZAPRINE 10 MG TAB PO STA (03:02)
--- NOTE | 2018-11-08 03:54 | XR ---
EXAM: XR Left Shoulder Complete, 2 or More Views CLINICAL HISTORY: ITS.REASON XR Reason: pain TECHNIQUE: Two or more views of the left shoulder. COMPARISON: No relevant prior studies available. FINDINGS: Bones/joints: No acute fracture. No dislocation. Soft tissues: Unremarkable. IMPRESSION: No acute findings.
--- NOTE | 2018-11-08 04:14 | ED ---
Neck Injury/Pain HPI - General Chief Complaint: Neck Pain/Injury Stated Complaint: Neck/ Arm Pain Time Seen by Provider: 11/08/18 02:18 Mode of arrival: ambulatory Limitations: no limitations - History of Present Illness Initial Comments: This patient is 27-year-old woman who presents with the onset tonight of left trapezius pain. She is indicating from the lateral portion of the neck on the left side to the left shoulder. She does not recall a trauma to the area. She does not believe she had overused her arm. The patient does not have any associated chest pain, dyspnea, diaphoresis, nausea or vomiting or any other anginal symptoms. MD Complaint: neck pain Onset/Timin -: hour(s) Place: home Radiation: left lateral, left shoulder Severity: severe Quality: burning, aching Consistency: constant Improves With: none Worsens With: movement of extremity, movement of neck Associated Symptoms: none Treatments Prior to Arrival: none - Related Data Home Medications Medication Instructions Recorded Confirmed Fexofenadine/Pseudoephedrine 1 tab PO DAILY PRN 09/02/18 09/02/18 [Bonnie-D 24 Hour Tablet] Montelukast [Singulair] 10 mg PO DAILY 09/02/18 09/02/18 Previous Rx's Medication Instructions Recorded Loratadine 10 mg PO DAILY 30 Days #30 tablet 09/02/18 Meclizine [Antivert] 25 mg PO DAILY 20 Days #20 tab 10/27/18 Ibuprofen [Motrin] 600 mg PO Q8HR PRN #20 tab 11/08/18 Methocarbamol [Robaxin-750] 750 mg PO TID PRN #30 tablet 11/08/18 Allergies Allergy/AdvReac Type Severity Reaction Status Date / Time No Known Allergies Allergy Verified 10/27/18 16:19 Review of Systems ROS Statement: Those systems with pertinent positive or pertinent negative responses have been documented in the HPI. ROS Other: All systems not noted in ROS Statement are negative. Constitutional: Denies: fever, chills Respiratory: Denies: cough, dyspnea Cardiovascular: Denies: chest pain, palpitations, dyspnea on exertion, syncope Gastrointestinal: Denies: abdominal pain, nausea, vomiting Musculoskeletal: Reports: myalgia. Denies: back pain, joint swelling, arthralgia Skin: Denies: rash Neurological: Denies: headache, weakness, numbness, paresthesias Past Medical History Past Medical History: Asthma, GERD/Reflux Additional Past Medical History / Comment(s): migraine, History of Any Multi-Drug Resistant Organisms: None Reported Past Surgical History: Section Past Anesthesia/Blood Transfusion Reactions: No Reported Reaction Past Psychological History: Anxiety Smoking Status: Never smoker Past Alcohol Use History: None Reported Past Drug Use History: None Reported - Past Family History Mother Family Medical History: No Reported History General Exam Limitations: no limitations General appearance: alert, in no apparent distress Eye exam: Present: normal appearance Neck exam: Present: normal inspection, tenderness ((Trapezius muscle), full ROM. Absent: meningismus, lymphadenopathy, thyromegaly Respiratory exam: Present: normal lung sounds bilaterally. Absent: respiratory distress, wheezes, rales, rhonchi, stridor, chest wall tenderness Cardiovascular Exam: Present: regular rate, normal rhythm, normal heart sounds, other (Upper extremity pulses are symmetric and normal in strength). Absent: systolic murmur, diastolic murmur, rubs, gallop GI/Abdominal exam: Present: soft. Absent: tenderness Extremities exam: Present: normal inspection, tenderness ((Trapezius muscle), normal capillary refill Back exam: Present: normal inspection. Absent: CVA tenderness (R), CVA tenderness (L), vertebral tenderness Neurological exam: Present: alert. Absent: motor sensory deficit Skin exam: Present: warm, dry, intact, normal color. Absent: rash Course Vital Signs 11/08/18 11/08/18 11/08/18 02:19 03:31 03:37 Temperature 98.0 F Pulse Rate 82 69 Pulse Rate [ 69 Pulse Oximetery ] Respiratory 18 18 Rate Blood Pressure 122/85 111/80 O2 Sat by Pulse 98 97 Oximetry 11/08/18 04:21 Temperature Pulse Rate 87 Pulse Rate [ Pulse Oximetery ] Respiratory 16 Rate Blood Pressure 110/73 O2 Sat by Pulse 99 Oximetry Medical Decision Making - EKG Data -: EKG Interpreted by [facility] EKG shows normal: sinus rhythm, axis (Normal), intervals (Normal), QRS complexes (Normal), ST-T waves (Normal) Rate: normal (Rate 70 bpm) Interpretation: normal EKG Disposition Clinical Impression: Strain of neck muscle Disposition: HOME SELF-CARE Condition: Good Instructions (If sedation given, give patient instructions): Cervical Strain (ED) Prescriptions: Ibuprofen [Motrin] 600 mg PO Q8HR PRN #20 tab PRN Reason: Pain Methocarbamol [Robaxin-750] 750 mg PO TID PRN #30 tablet PRN Reason: pain Is patient prescribed a controlled substance at d/c from ED?: No Referrals: Tylor Leavitt MD [Primary Care Provider] - 1-2 days
[2018-11-08 04:22] VITALS: BP 110/73; PULSE 87; RESP 16
== END 2018-11-08 04:25 | disposition home or self-care (01) ==
LOC: EC 02:07
DX: S16.1XXA Strain of muscle, fascia and tendon at neck level, initial encounter (principal); J45.909 Unspecified asthma, uncomplicated; Z79.899 Other long term (current) drug therapy; X58.XXXA Exposure to other specified factors, initial encounter
CPT/HCPCS: 93005; 99283

== ENCOUNTER 2018-12-09 01:01 | Emergency (ER) | payer OTHER ==
[2018-12-09 01:05] VITALS: TEMP 98.6
[2018-12-09] MEDS ORDERED: LIDOCAINE 5% PATCH TOPICAL STA (01:21)
--- NOTE | 2018-12-09 01:22 | ED ---
General Adult HPI - General Chief complaint: Chest Pain Stated complaint: Chest Pain Time Seen by Provider: 12/09/18 01:08 Source: patient Mode of arrival: ambulatory Limitations: no limitations - History of Present Illness Initial comments: Dictation was produced using [employer] dictation software. please excuse any grammatical, word or spelling errors. Chief Complaint: 27-year-old female with no significant comorbidities conditions presents with right chest pain. History of Present Illness: 27-year-old female presents with chest pain to the right of her anterior chest. She states pain is sharp without radiation to the extremities or jaw. Denies any significant family medical history. Patient has no cardiac history. States that she does not have any numbness or tingling to the extremities. No history of blood clots. Patient is not on any oral cultures of the medications. She denies any lower extremity symptoms. Patient states the pain as sharp and worse with deep inspiration. Patient denies any shortness of breath. The ROS documented in this emergency department record has been reviewed and confirmed by me. Those systems with pertinent positive or negative responses have been documented in the HPI. All other systems are other negative and/or noncontributory. PHYSICAL EXAM: General Impression: Alert and oriented x3, not in acute distress HEENT: Normocephalic atraumatic, extra-ocular movements intact, pupils equal and reactive to light bilaterally, mucous membranes moist. Cardiovascular: Heart regular rate and rhythm, S1&S2 audible, no murmurs, rubs or gallops Chest: Lungs clear to auscultation bilaterally, no rhonchi, no wheeze, no rales Abdomen: Bowel sounds present, abdomen soft, non-tender, non-distended, no organomegaly Musculoskeletal: Pulses present and equal in all extremities, no peripheral edema Motor: no focal deficits noted Neurological: CN II-XII grossly intact, no focal motor or sensory deficits noted Skin: Intact with no visualized rashes Psych: Normal affect and mood ED course:27 yo female presents with atypical chest pain. As upon arrival are within acceptable limits. Patient does not have any risk factors for acute coronary syndrome at this time. No clinical suspicion of pulmonary embolus given stable vital signs, lack of shortness of breath and no lower extremity symptoms. She has benign physical examination. She is well-appearing and smiling at bedside. EKGs benign showing no findings to suggest heart attack cause. No clinical suspicion of pulmonary embolus. Chest x-ray shows no acute processes. Patient clinically stable for discharge. Patient lidocaine patch with significant improvement of symptoms. Patient clear for discharge. Told to follow-up with primary care physician. Return parameters discussed. EKG interpretation: Ventricular rate 80, normal sinus rhythm, FL interval 182, care is 82, QTc 431. No FL prolongation, no QTC prolongation, no ST or T-wave changes noted. Overall, this EKG is unremarkable - Related Data Home Medications Medication Instructions Recorded Confirmed Fexofenadine/Pseudoephedrine 1 tab PO DAILY PRN 09/02/18 09/02/18 [Bonnie-D 24 Hour Tablet] Montelukast [Singulair] 10 mg PO DAILY 09/02/18 09/02/18 Previous Rx's Medication Instructions Recorded Loratadine 10 mg PO DAILY 30 Days #30 tablet 09/02/18 Meclizine [Antivert] 25 mg PO DAILY 20 Days #20 tab 10/27/18 Ibuprofen [Motrin] 600 mg PO Q8HR PRN #20 tab 11/08/18 Methocarbamol [Robaxin-750] 750 mg PO TID PRN #30 tablet 11/08/18 Allergies Allergy/AdvReac Type Severity Reaction Status Date / Time No Known Allergies Allergy Verified 12/09/18 01:05 Review of Systems ROS Statement: Those systems with pertinent positive or pertinent negative responses have been documented in the HPI. ROS Other: All systems not noted in ROS Statement are negative. Past Medical History Past Medical History: Asthma, GERD/Reflux Additional Past Medical History / Comment(s): migraine, History of Any Multi-Drug Resistant Organisms: None Reported Past Surgical History: Section Past Anesthesia/Blood Transfusion Reactions: No Reported Reaction Past Psychological History: Anxiety Smoking Status: Never smoker Past Alcohol Use History: None Reported Past Drug Use History: None Reported - Past Family History Mother Family Medical History: No Reported History General Exam Limitations: no limitations Course Vital Signs 12/09/18 01:04 Temperature 98.6 F Pulse Rate 86 Respiratory 20 Rate Blood Pressure 116/79 O2 Sat by Pulse 99 Oximetry Medical Decision Making - Lab Data Lab Results 12/09/18 Range/Units 01:39 Urine HCG, Qual Not Detected (Not Detectd) Disposition Clinical Impression: Chest pain Disposition: HOME SELF-CARE Condition: Good Instructions (If sedation given, give patient instructions): Costochondritis (ED) Is patient prescribed a controlled substance at d/c from ED?: No Referrals: Tylor Leavitt MD [Primary Care Provider] - 1-2 days Time of Disposition: 02:42
--- NOTE | 2018-12-09 02:24 | XR ---
EXAMINATION TYPE: XR chest 2V DATE OF EXAM: 12/09/2018 COMPARISON: 08/17/2018 HISTORY: Chest pain TECHNIQUE: Frontal and lateral views of the chest are obtained. FINDINGS: Heart and mediastinum are normal. Lungs are clear. Diaphragm is normal. Bony thorax appear s intact. The pulmonary vascularity is normal. IMPRESSION: Normal chest. No change.
[2018-12-09 02:59] VITALS: RESP 18
[2018-12-09 03:00] VITALS: BP 123/83; PULSE 86
== END 2018-12-09 02:52 | disposition home or self-care (01) ==
LOC: EC 01:01
DX: R07.89 Other chest pain (principal)
CPT/HCPCS: 71046; 81025; 93005; 99284

== ENCOUNTER 2018-12-26 19:34 | Emergency (ER) | payer OTHER ==
[2018-12-26] MEDS ORDERED: IBUPROFEN 600 MG TAB PO STA (20:24)
[2018-12-26] MEDS ORDERED: guaiFENesin-DM 600/30MG 1 EACH TAB.ER.12H PO STA (20:24)
--- NOTE | 2018-12-26 20:37 | ED ---
General Adult HPI - General Chief complaint: ENT Stated complaint: Body Aches Time Seen by Provider: 12/26/18 19:55 Source: patient Mode of arrival: ambulatory Limitations: no limitations - History of Present Illness Initial comments: 28-year-old female patient presents to the emergency department today for evaluation of body aches and sore throat. She is also reporting headache and cough. States symptoms have been present for the last 2 days. Denies any fever or chills. Denies taking any medication for her symptoms. She denies any sputum production, hemoptysis, or shortness of breath. Denies any wheezing. Denies use of cigarettes. Has not had influenza vaccine. Patient denies any recent rash, chest pain, abdominal pain, nausea, vomiting, diarrhea, constipation, back pain, numbness, tingling, dizziness, weakness, hematuria, dysuria, urinary urgency, urinary frequency, headache, visual changes, or any other complaints. She denies chance of . - Related Data Home Medications Medication Instructions Recorded Confirmed Pnv No.95/Ferrous Fum/Folic AC 1 tab PO DAILY 12/26/18 12/26/18 [ Multivitamin Tablet] Previous Rx's Medication Instructions Recorded Ibuprofen [Motrin] 600 mg PO Q8HR PRN #30 tab 12/26/18 guaiFENesin-DM 600/30MG [Mucinex 1 each PO Q12HR #10 tab.er.12h 12/26/18 Dm] Allergies Allergy/AdvReac Type Severity Reaction Status Date / Time No Known Allergies Allergy Verified 12/26/18 20:26 Review of Systems ROS Statement: Those systems with pertinent positive or pertinent negative responses have been documented in the HPI. ROS Other: All systems not noted in ROS Statement are negative. Past Medical History Past Medical History: Asthma, GERD/Reflux Additional Past Medical History / Comment(s): migraine, History of Any Multi-Drug Resistant Organisms: None Reported Past Surgical History: Section Past Anesthesia/Blood Transfusion Reactions: No Reported Reaction Past Psychological History: Anxiety Smoking Status: Never smoker Past Alcohol Use History: None Reported Past Drug Use History: None Reported - Past Family History Mother Family Medical History: No Reported History General Exam Limitations: no limitations General appearance: alert, in no apparent distress, other (Physical well- developed, well-nourished adult female patient in no acute distress. Vital signs upon presentation are temperature 98.4F, pulse 89, respirations 18, blood pressure 119/93, pulse ox 99% on room air.) Eye exam: Present: normal appearance, PERRL, EOMI. Absent: scleral icterus, conjunctival injection, periorbital swelling ENT exam: Present: mucous membranes moist, TM's normal bilaterally. Absent: normal exam, normal oropharynx (Pharyngeal erythema) Neck exam: Present: normal inspection. Absent: tenderness, meningismus, lymphadenopathy Respiratory exam: Present: normal lung sounds bilaterally. Absent: respiratory distress, wheezes, rales, rhonchi, stridor Cardiovascular Exam: Present: regular rate, normal rhythm, normal heart sounds. Absent: systolic murmur, diastolic murmur, rubs, gallop, clicks GI/Abdominal exam: Present: soft, normal bowel sounds. Absent: distended, tenderness, guarding, rebound, rigid Neurological exam: Present: alert, oriented X3, CN II-XII intact Psychiatric exam: Present: normal affect, normal mood Skin exam: Present: warm, dry, intact, normal color. Absent: rash Course Vital Signs 12/26/18 12/26/18 19:42 22:18 Temperature 98.4 F 98.2 F Pulse Rate 89 82 Respiratory 18 20 Rate Blood Pressure 119/93 116/88 O2 Sat by Pulse 99 96 Oximetry Medical Decision Making - Medical Decision Making 28-year-old female patient presents to the emergency department today for evaluation of sore throat and body aches. Physical examination did reveal pharyngeal erythema. Lungs clear to auscultation with good air movement. Chest x-ray was negative. Influenza testing negative. Symptoms consistent with viral upper respiratory infection. She'll be discharged home with prescription for ibuprofen and Mucinex DM. She is instructed to increase fluids and rest. Follow-up with her primary care physician for recheck in 1-2 days. Return parameters discussed in detail. She verbalizes understanding and agrees with this plan. - Lab Data Lab Results 12/26/18 12/26/18 Range/Units 20:37 20:37 Influenza Type A RNA Not Detected (Not Detectd) Influenza Type B (PCR) Not Detected (Not Detectd) Group A Strep Rapid Negative (Negative) - Radiology Data Radiology results: report reviewed, image reviewed Two-view x-ray of the chest is obtained. Report was reviewed in its entirety. Impression by Dr. Jeromy Moreno shows no acute process. Disposition Clinical Impression: Viral upper respiratory illness Disposition: HOME SELF-CARE Condition: Good Instructions (If sedation given, give patient instructions): Pharyngitis (ED), Upper Respiratory Infection (ED) Additional Instructions: Take medications as directed. Rest. Increase fluids. Follow-up through primary care physician for recheck in 1-2 days. Return to the emergency department immediately for any new, worsening, or concerning symptoms. Prescriptions: Ibuprofen [Motrin] 600 mg PO Q8HR PRN #30 tab PRN Reason: Pain guaiFENesin-DM 600/30MG [Mucinex Dm] 1 each PO Q12HR #10 tab.er.12h Is patient prescribed a controlled substance at d/c from ED?: No Referrals: Tylor Leavitt MD [Primary Care Provider] - 1-2 days Time of Disposition: 22:07
--- NOTE | 2018-12-26 21:47 | XR ---
EXAMINATION: XR chest 2V DATE AND TIME: 12/26/2018 9:07 PM CLINICAL INDICATION: PHH; Cough TECHNIQUE: Departmental protocol COMPARISON: 12/09/2018 FINDINGS: The lungs are clear. The pleural spaces are negative. The cardiac silhouette is not enlarged. The remainder of the mediastinal silhouette is unremarkable. The skeletal structures and soft tissues are negative for acute findings. IMPRESSION: NO ACUTE PROCESS.
[2018-12-26 22:19] VITALS: BP 116/88; PULSE 82; RESP 20; TEMP 98.2
== END 2018-12-26 22:20 | disposition home or self-care (01) ==
LOC: EC 19:34
DX: J06.9 Acute upper respiratory infection, unspecified (principal)
CPT/HCPCS: 71046; 87081; 87430; 87502; 99283

== ENCOUNTER 2019-01-30 13:00 | Emergency (ER) | payer OTHER ==
[2019-01-30] MEDS ORDERED: KETOROLAC 30 MG/ML 1 ML VIAL IM STA (13:45)
--- NOTE | 2019-01-30 14:23 | XR ---
EXAMINATION TYPE: XR chest 2V DATE OF EXAM: 01/30/2019 COMPARISON: 12/26/2018 HISTORY: 28-year-old female reproducible chest pain TECHNIQUE: PA and lateral views FINDINGS: The cardiomediastinal silhouette, aorta, and pulmonary vasculature are within normal limits. Hazy jos g densities are related to overlying soft tissue. No consolidation or pleural effusion. IMPRESSION: No acute cardiopulmonary process.
--- NOTE | 2019-01-30 14:29 | ED ---
Chest Pain HPI - General Chief Complaint: Chest Pain Stated Complaint: Chest pain Time Seen by Provider: 01/30/19 13:10 Source: patient Mode of arrival: ambulatory Limitations: no limitations - History of Present Illness Initial Comments: The patient is a 28-year-old female with no past medical history presents to emergency room with reported chest pain. She states it's been going on intermittently for the past 3 weeks. It is right-sided described as a patient when she pushes on her chest wall. She denies any trauma area denies a pleuritic chest pain. No shortness of breath. Denies a history of DVT or PE. Denies any lower extremity edema. No recent travel or prolonged immobility. Denies a cough, hemoptysis or recent upper respiratory symptoms. She saw her primary care physician who ordered an echo. States she has her prescription at home however has To schedule the appointment. She denies any fevers or chills. No ripping or tearing sensation to her back. Denies any numbness or tingling or weakness in her upper extremities. No back or flank pain. Denies any abdominal pain. No possibility of . There are no alleviating, precipitating or modifying factors - Related Data Home Medications Medication Instructions Recorded Confirmed Pnv No.95/Ferrous Fum/Folic AC 1 tab PO DAILY 12/26/18 12/26/18 [ Multivitamin Tablet] Previous Rx's Medication Instructions Recorded Ibuprofen [Motrin] 600 mg PO Q8HR PRN #30 tab 12/26/18 guaiFENesin-DM 600/30MG [Mucinex 1 each PO Q12HR #10 tab.er.12h 12/26/18 Dm] Naproxen [Naprosyn] 500 mg PO Q12HR PRN #20 tab 01/30/19 Allergies Allergy/AdvReac Type Severity Reaction Status Date / Time No Known Allergies Allergy Verified 01/30/19 13:11 Review of Systems ROS Statement: Those systems with pertinent positive or pertinent negative responses have been documented in the HPI. ROS Other: All systems not noted in ROS Statement are negative. EKG Findings - EKG Comments: EKG Findings:: EKG demonstrates a normal sinus rhythm with a ventricular rate of 84. AL interval 160. QRS 78. QTC of 425. There are no acute ST segment elevations or depressions concerning for ischemic changes. There is some baseline artifact. No signs of [id number] or Brugada syndrome Past Medical History Past Medical History: Asthma, GERD/Reflux Additional Past Medical History / Comment(s): migraine, History of Any Multi-Drug Resistant Organisms: None Reported Past Surgical History: Section Past Anesthesia/Blood Transfusion Reactions: No Reported Reaction Past Psychological History: Anxiety Smoking Status: Never smoker Past Alcohol Use History: None Reported Past Drug Use History: None Reported - Past Family History Mother Family Medical History: No Reported History General Exam Limitations: no limitations General appearance: alert, in no apparent distress Head exam: Present: atraumatic, normocephalic, normal inspection Eye exam: Present: normal appearance, PERRL, EOMI. Absent: scleral icterus, conjunctival injection, periorbital swelling ENT exam: Present: normal exam, mucous membranes moist Neck exam: Present: normal inspection. Absent: tenderness, meningismus, lymphadenopathy Respiratory exam: Present: normal lung sounds bilaterally, chest wall tenderness (right sided, reproducible). Absent: respiratory distress, wheezes, rales, rhonchi, stridor Cardiovascular Exam: Present: regular rate, normal rhythm, normal heart sounds. Absent: systolic murmur, diastolic murmur, rubs, gallop, clicks GI/Abdominal exam: Present: soft, normal bowel sounds. Absent: distended, tenderness, guarding, rebound, rigid Extremities exam: Present: normal inspection, full ROM, normal capillary refill. Absent: tenderness, pedal edema, joint swelling, calf tenderness Back exam: Present: normal inspection Neurological exam: Present: alert, oriented X3, CN II-XII intact Psychiatric exam: Present: normal affect, normal mood Skin exam: Present: warm, dry, intact, normal color. Absent: rash Course Vital Signs 01/30/19 01/30/19 13:10 15:18 Temperature 98.7 F 98.2 F Pulse Rate 87 88 Respiratory 16 18 Rate Blood Pressure 118/86 120/78 O2 Sat by Pulse 97 99 Oximetry Chest Pain MDM - MDM Upon arrival patient was placed in room 17. A thorough history and physical exam was performed. I did perform a 12-lead EKG which demonstrates no acute findings. The patient was sent for a chest x-ray. I also performed a bedside ultrasound on the patient which was negative for her pericardial effusion. EF is visualized as 55%. I did recommend that the patient follow up with [facility]. She was given a shot of Toradol in the ED. She does have improvement in her pain. She'll begin up her prescription for Naprosyn. I did recommend that she have a formal echo as well as Holter monitoring. Return to the emergency room for any new or worsening symptoms. The patient was then discharged home in stable condition Disposition Clinical Impression: Musculoskeletal chest pain Disposition: HOME SELF-CARE Condition: Stable Instructions (If sedation given, give patient instructions): Chest Wall Pain (ED) Additional Instructions: Please follow-up with your primary care doctor in 2-4 days. I recommended you have an Echo of your heart and Holter monitoring. Return to the emergency room for any new or worsening symptoms. Please call [phone] to schedule your Echo Prescriptions: Naproxen [Naprosyn] 500 mg PO Q12HR PRN #20 tab PRN Reason: Pain Is patient prescribed a controlled substance at d/c from ED?: No Referrals: Tylor Leavitt MD [Primary Care Provider] - 1-2 days [facility] [Provider Group] - 1-2 days Time of Disposition: 15:05
[2019-01-30 15:20] VITALS: BP 120/78; PULSE 88; RESP 18; TEMP 98.2
== END 2019-01-30 15:18 | disposition home or self-care (01) ==
LOC: EC 13:00
DX: R07.89 Other chest pain (principal); Z87.09 Personal history of other diseases of the respiratory system
CPT/HCPCS: 93005; 71046; 99285; 96372; J1885

== ENCOUNTER 2019-02-18 10:31 | Emergency (ER) | payer OTHER ==
[2019-02-18 11:13] VITALS: RESP 18; TEMP 98.2
[2019-02-18] MEDS ORDERED: DIAZEPAM 5 MG/ML 2 ML INJ IM STA (11:35)
--- NOTE | 2019-02-18 11:44 | ED ---
General Adult HPI - General Chief complaint: Shortness of Breath Stated complaint: difficulty breathing Time Seen by Provider: 02/18/19 11:16 Source: patient, RN notes reviewed Mode of arrival: ambulatory Limitations: no limitations - History of Present Illness Initial comments: 28-year-old female presents emergency Department chief complaint of difficulty breathing. She has been having ongoing issues in which she states occasionally she does Radiate states she gets some tightness in her upper chest. She has been evaluated extensively by her PCP along with a new primary care physician, multiple ER visits and multiple hospitalist. Patient states that today symptoms seemed to worsen she states she always has symptoms. Patient denies any fevers or chills. Patient is a nonsmoker she states she was exposed to smoke as an infant. Patient states that she has normal drug ALLERGIES denies any reflux issues. Patient states that she has been evaluated several times with [facility] along with repeat treatments. She states that she recently steroid shot last night. - Related Data Home Medications Medication Instructions Recorded Confirmed Pnv No.95/Ferrous Fum/Folic AC 1 tab PO DAILY 12/26/18 12/26/18 [ Multivitamin Tablet] Previous Rx's Medication Instructions Recorded Ibuprofen [Motrin] 600 mg PO Q8HR PRN #30 tab 12/26/18 guaiFENesin-DM 600/30MG [Mucinex 1 each PO Q12HR #10 tab.er.12h 12/26/18 Dm] Naproxen [Naprosyn] 500 mg PO Q12HR PRN #20 tab 01/30/19 predniSONE 50 mg PO DAILY #5 tab 02/18/19 Allergies Allergy/AdvReac Type Severity Reaction Status Date / Time No Known Allergies Allergy Verified 02/18/19 11:13 Review of Systems ROS Statement: Those systems with pertinent positive or pertinent negative responses have been documented in the HPI. ROS Other: All systems not noted in ROS Statement are negative. Past Medical History Past Medical History: GERD/Reflux Additional Past Medical History / Comment(s): migraine, History of Any Multi-Drug Resistant Organisms: None Reported Past Surgical History: Section Past Anesthesia/Blood Transfusion Reactions: No Reported Reaction Past Psychological History: Anxiety Smoking Status: Never smoker Past Alcohol Use History: None Reported Past Drug Use History: None Reported - Past Family History Mother Family Medical History: No Reported History General Exam Limitations: no limitations General appearance: alert, in no apparent distress Head exam: Present: atraumatic, normocephalic, normal inspection Eye exam: Present: normal appearance, PERRL, EOMI. Absent: scleral icterus, conjunctival injection, periorbital swelling ENT exam: Present: normal exam, normal oropharynx, mucous membranes moist Neck exam: Present: normal inspection, full ROM. Absent: tenderness, meningismus, lymphadenopathy Respiratory exam: Present: normal lung sounds bilaterally. Absent: respiratory distress, wheezes, rales, rhonchi, stridor Cardiovascular Exam: Present: regular rate, normal rhythm, normal heart sounds. Absent: systolic murmur, diastolic murmur, rubs, gallop, clicks GI/Abdominal exam: Present: soft, normal bowel sounds. Absent: distended, tenderness, guarding, rebound, rigid Course Vital Signs 02/18/19 02/18/19 02/18/19 11:11 12:31 12:42 Temperature 98.2 F Pulse Rate 92 80 80 Respiratory 18 Rate Blood Pressure 115/82 O2 Sat by Pulse 97 Oximetry Medical Decision Making - Medical Decision Making Soft tissue x-rays unremarkable patient feels improved after DuoNeb treatment will be continued on oral steroids and treatments at home. Limits mom with her PCP. Disposition Clinical Impression: Dyspnea Disposition: HOME SELF-CARE Condition: Stable Instructions (If sedation given, give patient instructions): Bronchospasm (ED) Additional Instructions: Please return to the Emergency Department if symptoms worsen or any other concerns. Prescriptions: predniSONE 50 mg PO DAILY #5 tab Is patient prescribed a controlled substance at d/c from ED?: No Referrals: Jeronimo Wilson MD [Primary Care Provider] - 1-2 days Time of Disposition: 12:58
[2019-02-18] MEDS ORDERED: predniSONE 20 MG TAB PO STA (12:08)
--- NOTE | 2019-02-18 12:24 | XR ---
EXAMINATION TYPE: XR soft tissue neck , 2 VIEWS DATE OF EXAM ORDERED: 02/18/2019 HISTORY: TING. COMPARISON: None. FINDINGS: Soft tissue views of the neck are normal. Prevertebral soft tissues are normal. The epiglo ttis is normal. Subglottic areas appear normal. IMPRESSION: NORMAL SOFT TISSUE VIEWS OF THE NECK.
[2019-02-18] MEDS: IPRATROPIUM-ALBUTEROL 3 ML NEB INHALATION STA (12:31)
[2019-02-18 13:08] VITALS: BP 112/78; PULSE 88
== END 2019-02-18 13:08 | disposition home or self-care (01) ==
LOC: EC 10:31
DX: R06.00 Dyspnea, unspecified (principal); R07.89 Other chest pain; Z53.20 Procedure and treatment not carried out because of patient's decision for unspecified reasons
CPT/HCPCS: 94640; 70360; 99285; J7512

== ENCOUNTER 2019-03-04 08:37 | Emergency (ER) | payer OTHER ==
[2019-03-04 08:59] VITALS: BP 127/77; PULSE 82; RESP 18; TEMP 98.6
[2019-03-04] MEDS ORDERED: ACETAMINOPHEN TAB 500 MG TAB PO STA (09:18)
[2019-03-04] MEDS ORDERED: IBUPROFEN 600 MG TAB PO STA (09:18)
[2019-03-04] MEDS ORDERED: OSELTAMIVIR 75 MG CAP PO STA (09:19)
--- NOTE | 2019-03-04 09:41 | XR ---
EXAMINATION TYPE: XR chest 2V DATE OF EXAM: 03/04/2019 COMPARISON: 01/30/2019 HISTORY: 28-year-old female cough, flu, lung pain, shortness of breath TECHNIQUE: PA and lateral views FINDINGS: The cardiomediastinal silhouette, aorta, and pulmonary vasculature are within normal limits. Some str jackeline left basilar atelectasis. Otherwise, lungs and pleural spaces are clear. IMPRESSION: No acute cardiopulmonary process.
--- NOTE | 2019-03-04 10:57 | ED ---
URI HPI - General Chief Complaint: Upper Respiratory Infection Stated Complaint: Sore Throat,TING Time Seen by Provider: 03/04/19 09:02 Source: patient, RN notes reviewed, old records reviewed Mode of arrival: ambulatory Limitations: no limitations - History of Present Illness Initial Comments: 28 year old female, presents with 3 children with 2 days of cough, fever, chills, sorethroat and vomiting. She reports she has had cough and feeling shortness of breath. She uses inhalers. MD Complaint: fever, cough, sore throat - Related Data Home Medications Medication Instructions Recorded Confirmed Pnv No.95/Ferrous Fum/Folic AC 1 tab PO DAILY 12/26/18 12/26/18 [ Multivitamin Tablet] Previous Rx's Medication Instructions Recorded Ibuprofen [Motrin] 600 mg PO Q8HR PRN #30 tab 12/26/18 guaiFENesin-DM 600/30MG [Mucinex 1 each PO Q12HR #10 tab.er.12h 12/26/18 Dm] Naproxen [Naprosyn] 500 mg PO Q12HR PRN #20 tab 01/30/19 predniSONE 50 mg PO DAILY #5 tab 02/18/19 Acetaminophen Tab [Tylenol Tab] 500 mg PO Q6H #20 tablet 03/04/19 Oseltamivir [Tamiflu] 75 mg PO Q12HR #10 cap 03/04/19 Allergies Allergy/AdvReac Type Severity Reaction Status Date / Time No Known Allergies Allergy Verified 03/04/19 08:59 Review of Systems ROS Statement: Those systems with pertinent positive or pertinent negative responses have been documented in the HPI. ROS Other: All systems not noted in ROS Statement are negative. Past Medical History Past Medical History: GERD/Reflux Additional Past Medical History / Comment(s): migraine, History of Any Multi-Drug Resistant Organisms: None Reported Past Surgical History: Section Past Anesthesia/Blood Transfusion Reactions: No Reported Reaction Past Psychological History: Anxiety Smoking Status: Never smoker Past Alcohol Use History: None Reported Past Drug Use History: None Reported - Past Family History Mother Family Medical History: No Reported History General Exam - General Exam Comments Initial Comments: Well appearing 28 year old female, no distress. Limitations: no limitations General appearance: alert, in no apparent distress Head exam: Present: atraumatic, normocephalic, normal inspection Eye exam: Present: normal appearance, PERRL, EOMI. Absent: scleral icterus, conjunctival injection, periorbital swelling ENT exam: Present: normal exam, mucous membranes moist Neck exam: Present: normal inspection. Absent: tenderness, meningismus, lymphadenopathy Respiratory exam: Present: normal lung sounds bilaterally. Absent: respiratory distress, wheezes, rales, rhonchi, stridor Cardiovascular Exam: Present: regular rate, normal rhythm, normal heart sounds. Absent: systolic murmur, diastolic murmur, rubs, gallop, clicks Extremities exam: Present: normal inspection, full ROM, normal capillary refill. Absent: tenderness, pedal edema, joint swelling, calf tenderness Back exam: Present: normal inspection Neurological exam: Present: alert, oriented X3, CN II-XII intact Psychiatric exam: Present: normal affect, normal mood Skin exam: Present: warm, dry, intact, normal color. Absent: rash Course Vital Signs 03/04/19 03/04/19 08:57 11:06 Temperature 98.6 F 98.6 F Pulse Rate 82 82 Respiratory 18 18 Rate Blood Pressure 127/77 127/77 O2 Sat by Pulse 99 99 Oximetry Medical Decision Making - Medical Decision Making 28 year old female, no distress. She is here with 3 children with similiar symptoms of cough, congestion, and fever for 2 days. Normal CXR. She appears to have viral syndrome and consistent with infleuzna. Discussed treatment with OTC mediation and can prescribe tamiflu. Return parameters discussed. - Radiology Data Radiology results: report reviewed Normal CXR, negative for acute cardiopulmonary process. Disposition Clinical Impression: Viral syndrome Disposition: HOME SELF-CARE Condition: Good Instructions (If sedation given, give patient instructions): Upper Respiratory Infection (ED) Additional Instructions: Patient advised to rest, remain hydrated. Take [id number] cough and congestion medication. Prescriptions: Oseltamivir [Tamiflu] 75 mg PO Q12HR #10 cap Acetaminophen Tab [Tylenol Tab] 500 mg PO Q6H #20 tablet Is patient prescribed a controlled substance at d/c from ED?: No Referrals: Tylor Leavitt MD [Primary Care Provider] - 1-2 days Time of Disposition: 10:56
== END 2019-03-04 11:06 | disposition home or self-care (01) ==
LOC: EC 08:37
DX: B34.9 Viral infection, unspecified (principal)
CPT/HCPCS: 71046; 99285

== ENCOUNTER → 2019-03-21 | Outpatient (CLI) | payer OTHER ==
--- NOTE | 2019-03-21 08:41 | US ---
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 Neck swelling and tenderness GLAND SIZE: Right Lobe: 5.5 x 1.5 x 2.3 cm Overall Parenchyma: heterogenous Left Lobe: 4.6 x 1.4 x 1.5 cm Overall Parenchyma: heterogeneous Isthmus Thickness: 0.3 cm NODULES RIGHT: # of nodules measured on right: 0 LEFT: # of nodules measured on left: 0 ISTHMUS: # of nodules measured in the isthmus: 0 Bilateral neck scanned, no evidence of lymphadenopathy. Slightly heterogeneous thyroid gland with mild prominence of right lobe versus left lobe. No suspicio us nodule or adenopathy on images saved. IMPRESSION: Thyroid gland measures upper limits of normal with slightly more prominent right thyroid lobe and is slightly heterogeneous but no discrete solid or cystic nodule identified.
== END | disposition home or self-care (01) ==
LOC: RADUSMAIN 08:05
PROVIDERS: ATTEND Family Medicine
DX: R93.89 Abnormal findings on diagnostic imaging of other specified body structures (principal); E04.9 Nontoxic goiter, unspecified
CPT/HCPCS: 76536

== ENCOUNTER → 2019-05-01 | Outpatient (CLI) | payer OTHER ==
[2019-05-01 15:31] LABS: HCT 37.9 % (34.0-46.0); HGB 12.6 gm/dL (11.4-16.0); MCH 31.1 pg (25.0-35.0); MCHC 33.4 g/dL (31.0-37.0); MCV 93.1 fL (80.0-100.0); Mean Platelet Volume 7.8; Platelet Count 264 k/uL (150-450); RBC 4.07 m/uL (3.80-5.40); RDW 11.8 % (11.5-15.5); WBC 5.6 k/uL (3.8-10.6)
[2019-05-01 18:21] LABS: African American GFR (CKD) 144.8 (60.0-200.0); Non-African American GFR(CKD) 124.9 (60.0-200.0)
[2019-05-01 18:30] LABS: T4, Free (Free Thyroxine) 1.2 ng/dL (0.80-1.80)
[2019-05-01 20:20] LABS: Hepatitis B Surface Antigen Non-Reactive (Non-Reactive)
[2019-05-01 20:36] LABS: HIV 1 AB Non-Reactive (Non-Reactive); HIV 2 AB Non-Reactive (Non-Reactive); HIV AB P24 Non-Reactive (Non-Reactive); HIV P24 AG Non-Reactive (Non-Reactive)
== END | disposition home or self-care (01) ==
LOC: LABWHC1 14:22
PROVIDERS: ATTEND Obstetrics & Gynecology
DX: Z34.81 Encounter for supervision of other normal pregnancy, first trimester (principal)
CPT/HCPCS: 36415; 82565; 82947; 84439; 84443; 85027; 86762; 86780; 86850; 86900; 86901; 87340; 87390

== ENCOUNTER → 2019-05-01 | Outpatient (CLI) | payer OTHER ==
--- NOTE | 2019-05-01 16:26 | US ---
EXAMINATION TYPE: Transabdominal DATE OF EXAM: 05/01/2019 3:58 PM COMPARISON: NONE CLINICAL HISTORY: O44.20 Partial placenta previa NOS or without hemo. Dates EXAM PERFORMED: Transabdominal (TA) EXAM MEASUREMENTS: GESTATIONAL AGE / DATING Physician Established: Not yet established Dates by LMP: LMP unknown Dates by First Scan: No previous this is first scan Dates by Current Scan for: (13 weeks/0 days) EDC: 11/06/2019 MATERNAL ANATOMY Uterus: 14.7 x 6.9 x 8.2 Right Ovary: 2.1 x 2.1 x 2.2 cm Left Ovary: Obscured by bowel gas. Post CDS / Adnexa: wnl Presence of free fluid: no Presence of corpus luteal cyst: yes right Presence of subchorionic bleed: no GESTATION / SURVEY CRL: 6.65 cm (13 weeks/0 days) Heart Rate: 170 bpm Rhythm: Normal IUP: Live IUP Beta HcG (if available): Not available at this time IMPRESSION: Single live intrauterine with a sonographic age of 13 weeks and 0 days and dinesh mated date of delivery of 11/06/2019. Heart rate of 170 bpm. There is obscuration of the left ovary by overlying bowel gas.
== END | disposition home or self-care (01) ==
LOC: RADUSWWP 15:06
PROVIDERS: ATTEND Obstetrics & Gynecology
DX: Z36.89 Encounter for other specified antenatal screening (principal)
CPT/HCPCS: 76801

== ENCOUNTER 2019-09-07 21:56 | Emergency (ER) | payer OTHER ==
[2019-09-07 22:37] LABS: Glucose,Whole Blood 86 mg/dL (75-99)
[2019-09-07 22:43] VITALS: RESP 18
[2019-09-07] MEDS ORDERED: SODIUM CHLORIDE 0.9% 1,000 ML IV STA (22:46)
--- NOTE | 2019-09-07 23:05 | ED ---
Neuro HPI - General Chief Complaint: Neuro Symptoms/Deficit Stated Complaint: Vision problems Time Seen by Provider: 09/07/19 22:22 Source: patient, RN notes reviewed, old records reviewed Mode of arrival: ambulatory Limitations: no limitations - History of Present Illness Is the patient presenting with stroke symptoms?: No -: minutes(s) Initial Comments: This is a 28-year-old female who is currently about 32 weeks coming in for some altered mental status confusion and not feeling well. Patient denies headache or chest pain states she has have diminished peripheral vision but no specific vision changes. Denies drugs or alcohol. Denies taking any medications. No history of similar complaint Location: other (patient fell confused) History of same: No Place: home Severity: mild Improves With: time Worsens With: none Context: sudden onset Associated Symptoms: confusion Treatments Prior to Arrival: none - Related Data Home Medications: Home Medications Medication Instructions Recorded Confirmed Pnv No.95/Ferrous Fum/Folic AC 1 tab PO DAILY 12/26/18 09/07/19 [ Multivitamin Tablet] Allergies/Adverse Reactions: Allergies Allergy/AdvReac Type Severity Reaction Status Date / Time No Known Allergies Allergy Verified 09/07/19 23:04 Review of Systems ROS Statement: Those systems with pertinent positive or pertinent negative responses have been documented in the HPI. ROS Other: All systems not noted in ROS Statement are negative. General Exam Limitations: no limitations General appearance: alert, in no apparent distress Head exam: Present: atraumatic, normocephalic, normal inspection Eye exam: Present: normal appearance, PERRL, EOMI. Absent: scleral icterus, conjunctival injection, periorbital swelling ENT exam: Present: normal exam, mucous membranes moist Neck exam: Present: normal inspection. Absent: tenderness, meningismus, lymphadenopathy Respiratory exam: Present: normal lung sounds bilaterally. Absent: respiratory distress, wheezes, rales, rhonchi, stridor Cardiovascular Exam: Present: regular rate, normal rhythm, normal heart sounds. Absent: systolic murmur, diastolic murmur, rubs, gallop, clicks GI/Abdominal exam: Present: soft, normal bowel sounds. Absent: distended, tenderness, guarding, rebound, rigid Extremities exam: Present: normal inspection, full ROM, normal capillary refill. Absent: tenderness, pedal edema, joint swelling, calf tenderness Back exam: Present: normal inspection Neurological exam: Present: alert, oriented X3, CN II-XII intact Psychiatric exam: Present: normal affect, normal mood Skin exam: Present: warm, dry, intact, normal color. Absent: rash Stroke MDM - Lab Data Result diagrams: 09/07/19 22:51 09/07/19 22:51 Lab Results 09/07/19 09/07/19 09/07/19 Range/Units 22:34 22:51 22:51 WBC 6.1 (3.8-10.6) k/uL RBC 3.63 L (3.80-5.40) m/uL Hgb 11.9 (11.4-16.0) gm/dL Hct 34.7 (34.0-46.0) % MCV 95.6 (80.0-100.0) fL MCH 32.7 (25.0-35.0) pg MCHC 34.2 (31.0-37.0) g/dL RDW 12.2 (11.5-15.5) % Plt Count 238 (150-450) k/uL Neutrophils % 62 % Lymphocytes % 30 % Monocytes % 4 % Eosinophils % 2 % Basophils % 0 % Neutrophils # 3.8 (1.3-7.7) k/uL Lymphocytes # 1.8 (1.0-4.8) k/uL Monocytes # 0.2 (0-1.0) k/uL Eosinophils # 0.1 (0-0.7) k/uL Basophils # 0.0 (0-0.2) k/uL PT 9.4 (9.0-12.0) sec INR 0.9 (<1.2) APTT 23.6 (22.0-30.0) sec Sodium (137-145) mmol/L Potassium (3.5-5.1) mmol/L Chloride (98-107) mmol/L Carbon Dioxide (22-30) mmol/L Anion Gap mmol/L BUN (7-17) mg/dL Creatinine (0.52-1.04) mg/dL Est GFR (CKD-EPI)AfAm (>60 ml/min/1.73 sqM) Est GFR (CKD-EPI)NonAf (>60 ml/min/1.73 sqM) Glucose (74-99) mg/dL POC Glucose (mg/dL) 86 (75-99) mg/dL POC Glu Materials Coordinator ID Aliyah Worley Plasma Lactic Acid Ricardo (0.7-2.0) mmol/L Calcium (8.4-10.2) mg/dL Phosphorus (2.5-4.5) mg/dL Magnesium (1.6-2.3) mg/dL Total Bilirubin (0.2-1.3) mg/dL AST (14-36) U/L ALT (4-34) U/L Alkaline Phosphatase (38-126) U/L Creatine Kinase (30-135) U/L Troponin I (0.000-0.034) ng/mL NT-Pro-B Natriuret Pep pg/mL Total Protein (6.3-8.2) g/dL Albumin (3.5-5.0) g/dL 09/07/19 09/07/19 09/07/19 Range/Units 22:51 22:51 22:51 WBC (3.8-10.6) k/uL RBC (3.80-5.40) m/uL Hgb (11.4-16.0) gm/dL Hct (34.0-46.0) % MCV (80.0-100.0) fL MCH (25.0-35.0) pg MCHC (31.0-37.0) g/dL RDW (11.5-15.5) % Plt Count (150-450) k/uL Neutrophils % % Lymphocytes % % Monocytes % % Eosinophils % % Basophils % % Neutrophils # (1.3-7.7) k/uL Lymphocytes # (1.0-4.8) k/uL Monocytes # (0-1.0) k/uL Eosinophils # (0-0.7) k/uL Basophils # (0-0.2) k/uL PT (9.0-12.0) sec INR (<1.2) APTT (22.0-30.0) sec Sodium 134 L (137-145) mmol/L Potassium 4.2 (3.5-5.1) mmol/L Chloride 107 (98-107) mmol/L Carbon Dioxide 15 L (22-30) mmol/L Anion Gap 12 mmol/L BUN 7 (7-17) mg/dL Creatinine 0.54 (0.52-1.04) mg/dL Est GFR (CKD-EPI)AfAm >90 (>60 ml/min/1.73 sqM) Est GFR (CKD-EPI)NonAf >90 (>60 ml/min/1.73 sqM) Glucose 80 (74-99) mg/dL POC Glucose (mg/dL) (75-99) mg/dL POC Glu Materials Coordinator ID Plasma Lactic Acid Ricardo (0.7-2.0) mmol/L Calcium 9.1 (8.4-10.2) mg/dL Phosphorus 3.8 (2.5-4.5) mg/dL Magnesium 1.9 (1.6-2.3) mg/dL Total Bilirubin 0.6 (0.2-1.3) mg/dL AST 27 (14-36) U/L ALT 14 (4-34) U/L Alkaline Phosphatase 128 H (38-126) U/L Creatine Kinase 89 (30-135) U/L Troponin I <0.012 (0.000-0.034) ng/mL NT-Pro-B Natriuret Pep 20 pg/mL Total Protein 7.0 (6.3-8.2) g/dL Albumin 3.7 (3.5-5.0) g/dL 09/07/19 Range/Units 23:44 WBC (3.8-10.6) k/uL RBC (3.80-5.40) m/uL Hgb (11.4-16.0) gm/dL Hct (34.0-46.0) % MCV (80.0-100.0) fL MCH (25.0-35.0) pg MCHC (31.0-37.0) g/dL RDW (11.5-15.5) % Plt Count (150-450) k/uL Neutrophils % % Lymphocytes % % Monocytes % % Eosinophils % % Basophils % % Neutrophils # (1.3-7.7) k/uL Lymphocytes # (1.0-4.8) k/uL Monocytes # (0-1.0) k/uL Eosinophils # (0-0.7) k/uL Basophils # (0-0.2) k/uL PT (9.0-12.0) sec INR (<1.2) APTT (22.0-30.0) sec Sodium (137-145) mmol/L Potassium (3.5-5.1) mmol/L Chloride (98-107) mmol/L Carbon Dioxide (22-30) mmol/L Anion Gap mmol/L BUN (7-17) mg/dL Creatinine (0.52-1.04) mg/dL Est GFR (CKD-EPI)AfAm (>60 ml/min/1.73 sqM) Est GFR (CKD-EPI)NonAf (>60 ml/min/1.73 sqM) Glucose (74-99) mg/dL POC Glucose (mg/dL) (75-99) mg/dL POC Glu Materials Coordinator ID Plasma Lactic Acid Ricardo 0.7 (0.7-2.0) mmol/L Calcium (8.4-10.2) mg/dL Phosphorus (2.5-4.5) mg/dL Magnesium (1.6-2.3) mg/dL Total Bilirubin (0.2-1.3) mg/dL AST (14-36) U/L ALT (4-34) U/L Alkaline Phosphatase (38-126) U/L Creatine Kinase (30-135) U/L Troponin I (0.000-0.034) ng/mL NT-Pro-B Natriuret Pep pg/mL Total Protein (6.3-8.2) g/dL Albumin (3.5-5.0) g/dL - NIH Stroke Scale 1a. Level of Consciousness: (0) alert 1b. LOC Questions: (0) answers correctly 1c. LOC Commands: (0) performs tasks correctly 2. Best Gaze: (0) normal 3. Visual: (0) no visual loss 4. Facial Palsy: (0) normal symmetrical movement 5a. Motor Arm Left: (0) no drift 5b. Motor Arm Right: (0) no drift 6a. Motor Leg Left: (0) no drift 6b. Motor Leg Right: (0) no drift 7. Limb Ataxia: (0) absent 8. Sensory: (0) normal 9. Best Language: (0) no aphasia 10. Dysarthria: (0) normal 11. Extinction/Inattention: (0) no abnormality - Thrombolytic Inclusion/Exclusion Thrombolytic Inclusion Criteria: Symptom Onset < 4.5 h - Medical Decision Making 28 female DF for evaluation of some headache and some confusion no significant acute findings found here in the ER patient refusing computed tomography scan, symptoms improved and patient will be discharged home - Radiology Data Radiology results: report reviewed (Patient refusing computed tomography scan of brain) - EKG Data -: EKG Interpreted by Me (EKG sinus a rate 79 HI 186 QRS 84 QTC 442) Past Medical History Past Medical History: Asthma, GERD/Reflux Additional Past Medical History / Comment(s): migraine, History of Any Multi-Drug Resistant Organisms: None Reported Past Surgical History: Section Past Anesthesia/Blood Transfusion Reactions: No Reported Reaction Past Psychological History: Anxiety Smoking Status: Never smoker Past Alcohol Use History: None Reported Past Drug Use History: None Reported - Past Family History Mother Family Medical History: No Reported History Course Vital Signs 09/07/19 09/07/19 09/07/19 22:00 22:20 22:35 Temperature 98.2 F 98.3 F 98.3 F Pulse Rate 92 86 87 Respiratory 16 18 18 Rate Blood Pressure 123/85 123/76 128/81 O2 Sat by Pulse 99 99 99 Oximetry 09/07/19 09/07/19 23:05 23:23 Temperature 98.1 F 98.1 F Pulse Rate 80 80 Respiratory 18 18 Rate Blood Pressure 104/53 104/53 O2 Sat by Pulse 99 99 Oximetry - Reevaluation(s) Reevaluation #1: 09/07/19 23:28 Medical records reviewed Reevaluation #2: 09/07/19 23:28 Patient given reassurance here in the ER Patient has nonstress test of the baby here in the ER Patient is receiving CT of her brain here in the ER Disposition Clinical Impression: Altered mental status Disposition: HOME SELF-CARE Condition: Good Instructions (If sedation given, give patient instructions): Altered Mental Status (ED) Is patient prescribed a controlled substance at d/c from ED?: No Referrals: Tylor Leavitt MD [Primary Care Provider] - 1-2 days
[2019-09-07 23:22] VITALS: BP 104/53; PULSE 80; TEMP 98.1
[2019-09-07 23:30] LABS: Basophils % (A) 0 %; Eosinophils # (A) 0.1 k/uL (0-0.7); Eosinophils % (A) 2 %; HCT 34.7 % (34.0-46.0); HGB 11.9 gm/dL (11.4-16.0); Lymphocytes # (A) 1.8 k/uL (1.0-4.8); Lymphocytes % (A) 30 %; MCH 32.7 pg (25.0-35.0); MCHC 34.2 g/dL (31.0-37.0); MCV 95.6 fL (80.0-100.0); Monocytes # (A) 0.2 k/uL (0-1.0); Monocytes % (A) 4 %; Neutrophils # (A) 3.8 k/uL (1.3-7.7); Neutrophils % (A) 62 %; Platelet Count 238 k/uL (150-450); RBC 3.63 m/uL (3.80-5.40); RDW 12.2 % (11.5-15.5); WBC 6.1 k/uL (3.8-10.6)
[2019-09-07 23:35] LABS: ALT 14 U/L (4-34); AST 27 U/L (14-36); African American GFR (CKD) >90 (>60 ml/min/1.73 sqM); Albumin 3.7 g/dL (3.5-5.0); Alkaline Phosphatase 128 U/L (38-126); Anion Gap 12 mmol/L; Blood Urea Nitrogen 7 mg/dL (7-17); Calcium 9.1 mg/dL (8.4-10.2); Carbon Dioxide 15 mmol/L (22-30); Chloride 107 mmol/L (98-107); Creatine Kinase 89 U/L (30-135); Glucose 80 mg/dL (74-99); Magnesium 1.9 mg/dL (1.6-2.3); Non-African American GFR(CKD) >90 (>60 ml/min/1.73 sqM); Phosphorus 3.8 mg/dL (2.5-4.5); Potassium 4.2 mmol/L (3.5-5.1); Sodium 134 mmol/L (137-145); Total Bilirubin 0.6 mg/dL (0.2-1.3)
[2019-09-07 23:37] LABS: INR 0.9 (<1.2); Partial Thromboplastin Time 23.6 sec (22.0-30.0); Prothrombin Time 9.4 sec (9.0-12.0)
== END 2019-09-07 23:57 | disposition home or self-care (01) ==
LOC: EC 21:56
DX: O99.89 Other specified diseases and conditions complicating pregnancy, childbirth and the puerperium (principal); R41.82 Altered mental status, unspecified; Z79.899 Other long term (current) drug therapy; Z3A.32 32 weeks gestation of pregnancy; Z98.890 Other specified postprocedural states
CPT/HCPCS: 36415; 80053; 82550; 83605; 83735; 83880; 84100; 84484; 85025; 85610; 85730; 93005; 99285

== ENCOUNTER 2019-10-21 16:08 | Outpatient (CLI) | payer OTHER ==
[2019-10-21 17:38] VITALS: BP 129/87; PULSE 91; RESP 18; TEMP 99
--- NOTE | 2019-10-22 07:43 | P.MSEPDOC ---
Presenting Problems - Arrival Data Date of Arrival on Unit: 10/21/19 Time of Arrival on Unit: 16:10 Mode of Transport: Wheelchair - Complaint OB-Reason for Admission/Chief Complaint: Decreased Movement Medical History - Information : 5 Para: 3 Term: 3 : 0 Abortions: Spontaneous or Elective: 1 Number of Living Children: 3 - Gestational Age Gestational Age by JERRY (wks/days): 38 Weeks and 0 Days - History Complications: Prior Review of Systems - Review of Systems Constitutional: No problems Breast: No problems ENT: No problems Cardiovascular: No problems Respiratory: No problems Gastrointestinal: No problems Genitourinary: No problems Musculoskeletal: No problems Neurological: No problems Skin: No problems Vital Signs - Temperature Temperature: 99 F Temperature Source: Oral - Pulse Right Pulse Rate: 91 Pulse Assessment Method: Automatic Cuff - Respirations Respiratory Rate: 18 Oxygen Delivery Method: Room Air O2 Sat by Pulse Oximetry: 100 - Blood Pressure Right Arm Blood Pressure: 129/87 Blood Pressure Mean: 101 Blood Pressure Source: Automatic Cuff Medical Screen Scoring (Pre) - Cervical Exam Dilation: Exam Deferred Effacement: Exam Deferred Membranes: Intact - Uterine Contractions Frequency: N/A Duration: N/A Intensity: N/A - Maternal Vital Signs Maternal Temperature: N/A Maternal Blood Pressure: N/A Signs of Preeclampsia: N/A Maternal Respirations: N/A - Maternal Trauma Maternal Trauma: N/A - Assessment - Baby A Baseline FHR: 130 Heart Rate - NICHD Category: Category I (Normal) = 0 NST: Reactive Position: N/A Station: N/A - Total Score - Baby A Total Score - Baby A: 0 - Total Score - Baby B Total Score - Baby B: 0 - Total Score - Baby C Total Score - Baby C: 0 - Level of Risk - Baby A Level of Risk - Baby A: Low (0-5) - Level of Risk - Baby B Level of Risk - Baby B: Low (0-5) - Level of Risk - Baby C Level of Risk - Baby C: Low (0-5) Physician Notification (Pre) - Physician Notified Physician Notified Date: 10/21/19 Physician Notified Time: 17:05 New Order Received: Yes (d/c with instruction) - Notification Comment Comment: Pt feeling some flutters, fhts wnl, no contractions Disposition - Disposition OB Disposition: Triage, Discharge to home Discharge Date: 10/21/19 Discharge Time: 17:10 I agree with the RN Medical Screening Exam: Yes Risk & Benefit of care provided described in d/c instruction: Yes Diagnosis: DECREASED MOVEMENTS, THIRD TRIMESTER, FETUS 1
== END 2019-10-21 17:10 | disposition home or self-care (01) ==
LOC: FBPOP 16:08
PROVIDERS: ATTEND Obstetrics & Gynecology
DX: O36.8131 Decreased fetal movements, third trimester, fetus 1 (principal); Z3A.38 38 weeks gestation of pregnancy
CPT/HCPCS: 59025; G0463; 99213

== ENCOUNTER 2019-10-29 09:08 | Outpatient (CLI) | payer OTHER ==
[2019-10-29] MEDS ORDERED: LACTATED RINGERS 1,000 ML IV ONE (10:45)
--- NOTE | 2019-10-29 11:49 | US ---
EXAMINATION TYPE: US OB BPP wo non-stress DATE OF EXAM: 10/29/2019 COMPARISON: NONE CLINICAL HISTORY: non reactive nst. 38 weeks. Non reactive NST EXAM PERFORMED: Transabdominal (TA) BPP PARAMETERS: PRESENTATION: Vertex LIE: Transverse with head maternal Left? HEART RATE: 134 bpm RHYTHM: Normal LIZZ: 8.2 cm DIAPHRAGM IMAGED: Yes BPP SCORIN. Breathin (1 episode of breathing of 30 second duration in 30 minutes of scanning time) 2. Movement: 2 (at least 3 discrete body movements in 30 minutes) 3. Tone: 2 (1 episode of active flexion/extension of limb) 4. LIZZ: 2 (LIZZ index > 5cm) TOTAL SCORE: 8 / 8
[2019-10-29 12:06] VITALS: BP 127/85; PULSE 71; RESP 16; TEMP 97.3
--- NOTE | 2019-11-15 12:23 | P.MSEPDOC ---
Presenting Problems - Arrival Data Date of Arrival on Unit: 10/29/19 Time of Arrival on Unit: 09:10 Mode of Transport: Ambulatory - Complaint OB-Reason for Admission/Chief Complaint: Decreased Movement Comment: for last 2 days. Medical History - Information : 6 Para: 3 Term: 3 : 0 Abortions: Spontaneous or Elective: 2 Number of Living Children: 0 - Gestational Age Gestational Age by JERRY (wks/days): 38 Weeks and 4 Days - History Comment: denies problems with preg Review of Systems - Review of Systems Constitutional: No problems Breast: No problems ENT: No problems Cardiovascular: No problems Respiratory: No problems Gastrointestinal: No problems Genitourinary: No problems Musculoskeletal: No problems Neurological: No problems Skin: No problems Vital Signs - Temperature Temperature: 97.3 F Temperature Source: Temporal Artery Scan - Pulse Right Apical Pulse Rate: 71 Pulse Assessment Method: Automatic Cuff - Respirations Respiratory Rate: 16 Oxygen Delivery Method: Room Air - Blood Pressure Right Arm Blood Pressure: 127/85 Blood Pressure Mean: 99 Blood Pressure Source: Automatic Cuff Medical Screen Scoring (Pre) - Cervical Exam Dilation: 0 cm = 0 Effacement: Exam Deferred Membranes: Intact - Uterine Contractions Frequency: N/A - Maternal Vital Signs Maternal Temperature: N/A Maternal Blood Pressure: N/A Signs of Preeclampsia: N/A Maternal Respirations: N/A - Maternal Trauma Maternal Trauma: N/A - Assessment - Baby A Baseline FHR: 130 Heart Rate - NICHD Category: Category I (Normal) = 0 - Total Score - Baby A Total Score - Baby A: 0 - Total Score - Baby B Total Score - Baby B: 0 - Total Score - Baby C Total Score - Baby C: 0 - Level of Risk - Baby A Level of Risk - Baby A: Low (0-5) - Level of Risk - Baby B Level of Risk - Baby B: Low (0-5) - Level of Risk - Baby C Level of Risk - Baby C: Low (0-5) Physician Notification (Pre) - Physician Notified Physician Notified Date: 10/29/19 Physician Notified Time: 09:50 New Order Received: Yes - Notification Comment Comment: bpp and iv. nst not reactive at 1 hour. sve = closed and thick. a few iregular contx. pt still not feeling baby much. nst scheduled wed in office. bpp= 8-8. see obix notes Disposition - Disposition OB Disposition: Observe Discharge Date: 10/29/19 Discharge Time: 12:15 I agree with the RN Medical Screening Exam: Yes Risk & Benefit of care provided described in d/c instruction: Yes Diagnosis: DECREASED MOVEMENTS, SECOND TRIMESTER, FETUS 3
== END 2019-10-29 12:15 | disposition home or self-care (01) ==
LOC: FBPOP 09:08
PROVIDERS: ATTEND Obstetrics & Gynecology
DX: O36.8123 Decreased fetal movements, second trimester, fetus 3 (principal); O30.103 Triplet pregnancy, unspecified number of placenta and unspecified number of amniotic sacs, third trimester; Z3A.38 38 weeks gestation of pregnancy
CPT/HCPCS: 96365; 76819; G0463; 99213

== ENCOUNTER 2019-11-02 10:03 | Inpatient (IN) | payer OTHER ==
[2019-10-31 14:43] VITALS: BMI 40.7
[2019-11-02] MEDS ORDERED: CITRIC ACID-SODIUM CITRATE 15 ML CUP PO ONE (10:19)
[2019-11-02] MEDS: LACTATED RINGERS 1,000 ML IV SCH ×2 (11:04→22:34)
[2019-11-02 11:23] LABS: Basophils % (A) 0 %; Eosinophils # (A) 0.1 k/uL (0-0.7); Eosinophils % (A) 2 %; HCT 35.9 % (34.0-46.0); HGB 11.9 gm/dL (11.4-16.0); Lymphocytes # (A) 1.6 k/uL (1.0-4.8); Lymphocytes % (A) 30 %; MCH 31.5 pg (25.0-35.0); MCHC 33.1 g/dL (31.0-37.0); MCV 95.2 fL (80.0-100.0); Mean Platelet Volume 8.8; Monocytes # (A) 0.3 k/uL (0-1.0); Monocytes % (A) 5 %; Neutrophils # (A) 3.3 k/uL (1.3-7.7); Neutrophils % (A) 63 %; Platelet Count 245 k/uL (150-450); RBC 3.77 m/uL (3.80-5.40); RDW 12.8 % (11.5-15.5); WBC 5.3 k/uL (3.8-10.6)
[2019-11-02] MEDS ORDERED: KETOROLAC 15 MG/ML 1 ML VIAL ONE (12:05)
[2019-11-02] MEDS ORDERED: OXYTOCIN 10 UNIT/ML 1 ML VIAL ONE (12:05)
[2019-11-02] MEDS ORDERED: ONDANSETRON 4 MG/2 ML VIAL ONE (12:05)
[2019-11-02] MEDS ORDERED: MORPHINE SULFATE (PF) 0.3 MG/0.3 ML SYR ONE (12:05)
[2019-11-02] MEDS ORDERED: LANOLIN CREAM 5 GM TUBE TOPICAL PRN (12:57)
[2019-11-02] MEDS ORDERED: ZOLPIDEM 5 MG TAB PO PRN (12:57)
[2019-11-02] MEDS ORDERED: METOCLOPRAMIDE 5 MG/ML 2 ML VIAL IVP PRN (12:57)
[2019-11-02] MEDS ORDERED: NALOXONE 0.4 MG/ML 1 ML VIAL IV PRN (12:57)
[2019-11-02] MEDS ORDERED: diphenhydrAMINE 50 MG/ML 1 ML VIAL IVP PRN ×2 (12:57)
[2019-11-02] MEDS ORDERED: ACETAMINOPHEN TAB 325 MG TAB PO PRN (12:57)
[2019-11-02] MEDS ORDERED: SIMETHICONE 80 MG CHEWABLE PO PRN (12:57)
[2019-11-02] MEDS ORDERED: diphenhydrAMINE 25 MG CAP PO PRN (12:57)
[2019-11-02] MEDS ORDERED: diphenhydrAMINE 50 MG CAP PO PRN (12:57)
[2019-11-02] MEDS ORDERED: HYDROcodone/APAP 7.5-325MG 1 EACH TAB PO PRN (12:57)
[2019-11-02] MEDS ORDERED: OXYTOCIN 20 UNITS/1000 ML NS 1,000 ML IV SCH (13:00)
--- NOTE | 2019-11-02 13:01 | P.HPOB ---
History of Present Illness H&P Date: 11/02/19 Chief Complaint: repeat low transverse Placed around presents at 39 weeks for repeat low transverse with tubal ligation. Review of Systems All systems: negative Constitutional: Denies chills, Denies fever Eyes: denies blurred vision, denies pain Ears, nose, mouth and throat: Denies headache, Denies sore throat Cardiovascular: Denies chest pain, Denies shortness of breath Respiratory: Denies cough Gastrointestinal: Denies abdominal pain, Denies diarrhea, Denies nausea, Denies vomiting Genitourinary: Denies dysuria, Denies hematuria Musculoskeletal: Denies myalgias Integumentary: Denies pruritus, Denies rash Neurological: Denies numbness, Denies weakness Psychiatric: Denies anxiety, Denies depression Endocrine: Denies fatigue, Denies weight change Past Medical History Past Medical History: Asthma, GERD/Reflux Additional Past Medical History / Comment(s): migraine,. Obstetric history: She's had 3 sections and 2 spontaneous abortions. History of Any Multi-Drug Resistant Organisms: None Reported Past Surgical History: Section Past Anesthesia/Blood Transfusion Reactions: No Reported Reaction Past Psychological History: Anxiety Smoking Status: Never smoker Past Alcohol Use History: None Reported Past Drug Use History: None Reported - Past Family History Mother Family Medical History: No Reported History Medications and Allergies Home Medications Medication Instructions Recorded Confirmed Type Pnv No.95/Ferrous Fum/Folic AC 1 tab PO DAILY 12/26/18 11/02/19 History [ Multivitamin Tablet] Allergies Allergy/AdvReac Type Severity Reaction Status Date / Time No Known Allergies Allergy Verified 11/02/19 10:20 Exam Osteopathic Statement: *. No significant issues noted on an osteopathic structural exam other than those noted in the History and Physical/Consult. Vital Signs Temp Pulse Resp BP 11/02/19 10:19 97.4 F L 79 16 134/80 Intake and Output 11/01/19 11/02/19 11/02/19 22:59 06:59 14:59 Other: Weight 104.326 kg Heart: Regular rate and rhythm Lungs: Clear to auscultation bilaterally Abdomen: Soft, nontender Extremities: Negative Homans sign Results Result Diagrams: 11/02/19 11:00 Abnormal Lab Results - Last 24 Hours (Table) 09/04/20 Range/Units 11:00 RBC 3.77 L (3.80-5.40) m/uL Assessment and Plan (1) Previous section Current Visit: Yes Status: Acute Code(s): Z98.891 - HISTORY OF UTERINE SCAR FROM PREVIOUS SURGERY SNOMED Code(s): 193361462 (2) 39 weeks gestation of Current Visit: Yes Status: Acute Code(s): Z3A.39 - 39 WEEKS GESTATION OF SNOMED Code(s): 94297239 (3) Family planning Current Visit: Yes Status: Acute Code(s): Z30.09 - ENCOUNTER FOR OT GENERAL CNSL AND ADVICE ON CONTRACEPTION SNOMED Code(s): 748802935 Plan: 1. Repeat low transverse with tubal ligation
--- NOTE | 2019-11-02 13:03 | P.OP ---
Date of Procedure: 11/02/19 Preoperative Diagnosis: 1. at 39 weeks 2. Previous section 3. Family planning Postoperative Diagnosis: 1. at 39 weeks 2. Previous section 3. Family planning Procedure(s) Performed: Repeat low transverse with tubal ligation Anesthesia: spinal Surgeon: Olinda Akins Mixer Slagman #1: Eldon Gentile Estimated Blood Loss (ml): 400 IV fluids (ml): 1,000 Urine output (ml): 200 Pathology: other (Placenta, segment of bilateral fallopian tubes) Condition: stable Disposition: floor Operative Findings: Normal uterus, tubes, ovaries. Viable female, Apgars 8, 9, weight 6 lbs. 12 oz. Description of Procedure: Patient was taken to the operating room where spinal anesthesia was found be adequate. She was prepped and draped in normal sterile fashion in dorsal supine position with a leftward tilt. Pfannenstiel skin incision was made the scalpel and carried through to the underlying layer of fascia with the scalpel. Fascia was incised in midline and carried bilaterally with the Woo scissors. The superior aspect of the fascial incision was grasped with [place] clamps elevated and the underlying rectus muscles dissected off with the Woo's. Attention was then turned to inferior aspect of same incision which in a similar fashion was grasped tented up and the underlying rectus muscles dissected off with the Woo's. The rectus muscles were the midline and the peritoneum was identified tented up and entered sharply with the scalpel. The incision was extended superiorly and inferiorly with good visualization of the bladder. The bladder blade was inserted and the vesicouterine peritoneum was incised the Metzen[place]ums then carried bilaterally and bladder flap created digitally. A low transverse incision was then made on the uterus with the scalpel. This was carried bilaterally and digital manner. 's head delivered atraumatically, nose and mouth bulb suctioned, cord clamped and cut, infant handed off to wait [facility] nurses. Apgars 8,9, weight 6 lbs. 12 oz. Placenta delivered manually, intact with three-vessel cord. The uterus is exteriorized and cleared of all clots and debris. The uterine incision was closed with 0 Vicryl in a running locked fashion. Hemostasis was assured. Both ovaries and tubes appeared normal. The left fallopian tube was grasped with hemostat and a window was made in the mesosalpinx with the Bovie. The left fallopian tube was doubly ligated and a segment was removed. The pedicles were cauterized with the Bovie. The right fallopian tube was grasped a hemostat and a window was made in the mesosalpinx with the Bovie. The right fallopian tube was doubly ligated and a segment was removed. The pedicles were cauterized with the Bovie. The uterus was placed back into the abdomen. The muscles were reapproximated using 2-0 Vicryl in interrupted fashion. The fascia was reapproximated using 0 Vicryl in a running fashion. The subcutaneous tissues closed with 3-0 Vicryl running fashion. The skin was closed jeronimo. Patient tolerated the procedure well, sponge and instrument counts were correct times 2 and she was taken to the recovery room in stable condition.
[2019-11-02] MEDS: ONDANSETRON 4 MG/2 ML VIAL IVP PRN ×2 (15:05→21:40)
[2019-11-02] MEDS: KETOROLAC 15 MG/ML 1 ML VIAL IVP SCH (21:31)
[2019-11-02] MEDS: SENNOSIDES-DOCUSATE SODIUM 1 EACH TAB PO SCH (21:40)
[2019-11-03] MEDS: KETOROLAC 15 MG/ML 1 ML VIAL IVP SCH ×4 (03:51→18:40)
[2019-11-03] MEDS: LACTATED RINGERS 1,000 ML IV SCH (03:53)
[2019-11-03 06:50] LABS: Basophils % (A) 0 %; Eosinophils # (A) 0.1 k/uL (0-0.7); Eosinophils % (A) 1 %; HGB 11.2 gm/dL (11.4-16.0); Lymphocytes # (A) 1.2 k/uL (1.0-4.8); Lymphocytes % (A) 15 %; MCV 97.1 fL (80.0-100.0); Mean Platelet Volume 9.3; Monocytes # (A) 0.3 k/uL (0-1.0); Monocytes % (A) 4 %; Neutrophils # (A) 6.4 k/uL (1.3-7.7); Neutrophils % (A) 78 %; Platelet Count 198 k/uL (150-450); RBC 3.61 m/uL (3.80-5.40); RDW 12.8 % (11.5-15.5); WBC 8.1 k/uL (3.8-10.6)
[2019-11-03] MEDS: SENNOSIDES-DOCUSATE SODIUM 1 EACH TAB PO SCH ×3 (08:47→19:42)
[2019-11-03 08:52] VITALS: RESP 16
--- NOTE | 2019-11-03 09:12 | P.PNOBGPC ---
Subjective - Subjective Principal diagnosis: Status post repeat low transverse with tubal ligation postop day Interval history: Patient seen and examined. Denies nausea, vomiting, chest pain, shortness of breath or calf pain. She did have some nausea and vomiting yesterday. When she came out of the OR the urine in the catheter bag and, from the fallopian tube was clear yellow after retching from being nauseous the Gold bag had bloody urine. After an IV fluid bolus and some time, the urine is now clear. I do not believe there is a bladder injury. Gold catheter will be removed today. Patient reports: Reports appetite normal, Reports pain well controlled, Reports ambulating normally : doing well Objective - Vital Signs Latest vital signs: Vital Signs Temp Pulse Resp BP Pulse Ox 11/03/19 08:00 98.2 F 75 16 135/75 98 11/03/19 04:00 97.7 F 69 18 120/73 97 11/03/19 00:00 98.0 F 70 18 119/82 97 11/02/19 20:00 97.9 F 65 16 130/80 99 11/02/19 15:05 97.3 F L 69 16 126/78 11/02/19 14:35 105 H 16 135/92 99 11/02/19 14:05 75 16 102/54 99 11/02/19 13:41 70 16 104/52 97 11/02/19 13:33 74 16 109/62 99 11/02/19 13:20 100 16 112/62 99 11/02/19 13:05 97.7 F 67 16 132/53 99 11/02/19 10:19 97.4 F L 79 16 134/80 Intake and Output 11/02/19 11/03/19 11/03/19 22:59 06:59 14:59 Output Total 1176 550 Balance -1176 -550 Output: Urine 600 550 Emesis 176 Estimated Blood Loss 400 Other: Voiding Method Indwelling Catheter Indwelling Catheter - Exam Lungs: bilateral: normal Chest: Normal S1, Normal S2 Extremities: Present: normal Abdomen: Present: normal appearance, soft. Absent: distention, tenderness Incision: Present: normal, dry, intact Uterus: Present: normal, firm - Labs Labs: Abnormal Lab Results - Last 24 Hours (Table) 11/02/19 11/03/19 Range/Units 11:00 06:17 RBC 3.77 L 3.61 L (3.80-5.40) m/uL Hgb 11.2 L (11.4-16.0) gm/dL Assessment and Plan (1) Previous section Current Visit: Yes Status: Acute Code(s): Z98.891 - HISTORY OF UTERINE SCAR FROM PREVIOUS SURGERY SNOMED Code(s): 111452701 (2) 39 weeks gestation of Current Visit: Yes Status: Acute Code(s): Z3A.39 - 39 WEEKS GESTATION OF P REGNANCY SNOMED Code(s): 21913902 (3) Family planning Current Visit: Yes Status: Acute Code(s): Z30.09 - ENCOUNTER FOR OTH GENERAL CNSL AND ADVICE ON CONTRACEPTION SNOMED Code(s): 467925627 Plan: 1. DC Gold catheter 2. Increase ambulation 3. care
--- NOTE | 2019-11-03 10:15 | P.PN ---
Progress Note - Text Progress Note Date: 11/03/19 Anesthesia Postop day 1 Subjective: Status Post section with Duramorph. Patient seen and examined. Complaining of mild pruritustolerable. VAS 3 out of 10. No nausea or vomiting. Denies fever. Gross lower extremity strength intact. . Without apparent anesthetic complications. Objective: Vital signs reviewed Heart: Regular Rate Lungs: Good chest excursion Abdomen: Appears nondistended Assessment: Status post with Duramorph postop day 1 Plan: Continue current care with your medical management. Anticipated change in pain needs today, patient understands.
[2019-11-03] MEDS: IBUPROFEN 600 MG TAB PO PRN (16:34)
[2019-11-04] MEDS: IBUPROFEN 600 MG TAB PO PRN ×2 (00:17→06:33)
[2019-11-04] MEDS: SENNOSIDES-DOCUSATE SODIUM 1 EACH TAB PO SCH (07:53)
--- NOTE | 2019-11-04 09:28 | P.DS ---
Providers Date of admission: 11/02/19 10:03 Expected date of discharge: 11/04/19 Attending physician: Olinda Akins Primary care physician: Stated None Hospital Course: This is a 28-year-old female 6 para 3 at 39 and one sevenths weeks who presented for repeat scheduled section with tubal ligation. She underwent that procedure on 11/02/2019 and delivered a viable female with scores of 8 at 1 minute and 9 at 5 minutes and infant weight of 6 lbs. 12 oz. Her course was complicated by nausea and vomiting immediately following delivery and bennett-red urine following that. Her catheter was left in for 24 hours and the urine did clear to yellow. It was removed after 24 hours and she has been able to urinate on her own. Lochia is decreasing. Pain is fairly well controlled with ibuprofen and [place]. She is working on breast- feeding but having some difficulty with it. Vital signs are stable. Abdomen is soft with positive bowel sounds 4. Incision is clean dry and intact with jeronimo in place. Extremities show negative Homans. Impression is status post repeat section with tubal ligation postoperative day #2. Plan is to discharge home per patient request. She will receive prescriptions for ibuprofen and [place]. She also is given a prescription for a breast pump. Jeronimo will be removed and Steri-Strips placed prior to discharge. She is advised to follow up with Dr. Akins in 1 week in the office and in 6 weeks for a check. She is advised to call the office if she has any further questions or concerns prior to her appointment time. Procedures: Repeat low transverse section with bilateral salpingectomy on 11/02/2019. Patient Condition at Discharge: Stable Plan - Discharge Summary Discharge Rx Participant: Yes New Discharge Prescriptions: New Ibuprofen [Motrin] 600 mg PO Q6HR PRN #60 tab PRN Reason: Mild Pain Or Fever >= 100.5 HYDROcodone/APAP 7.5-325MG [[place] 7.5-325] 1 each PO Q6H PRN #28 tab PRN Reason: Severe Pain Continue Pnv No.95/Ferrous Fum/Folic AC [ Multivitamin Tablet] 1 tab PO DAILY Discharge Medication List Pnv No.95/Ferrous Fum/Folic AC [ Multivitamin Tablet] 1 tab PO DAILY 12/26/18 [History] HYDROcodone/APAP 7.5-325MG [[place] 7.5-325] 1 each PO Q6H PRN #28 tab 11/04/19 [Rx] Ibuprofen [Motrin] 600 mg PO Q6HR PRN #60 tab 11/04/19 [Rx] Follow up Appointment(s)/Referral(s): Olinda Akins DO [Doctor of Osteopathic Medicine] - 1 Week Activity/Diet/Wound Care/Special Instructions: Instructions 1. Do not begin any exercise program for 3 weeks. 2. Do not resume sexual relations for 3 weeks or longer if uncomfortable. 3. You may take tub baths or showers at any time. 4. You may use tampons if desired after 3 weeks. 5. Keep the area of episiotomy (stitches) clean and dry. 6. If you are not nursing, wear a good fitting, supportive bra during the day and limit fluid intake for at least 1 week to prevent breast engorgement. 7. Call the office, [phone], within the next week to make appointment for your 6 week checkup if it has not already been made. 8. Report any of the following occurrences to the doctor promptly: a. Heavy, excessive bleeding b. Chills, fever c. Burning or frequency of urination d. Pain or redness and breasts if nursing e. Increasing pain or swelling in episiotomy (stitches). In addition to the above instructions, the following additional should be followed: 1. No heavy lifting or straining (exercising) until after 6 week checkup. 2. Keep abdominal incision clean and dry: You may wear a dressing if more comfortable. 3. Make office appointment for 10 days after going home or as instructed by her doctor. Discharge Disposition: HOME SELF-CARE
[2019-11-04 09:45] VITALS: BP 128/80; PULSE 85; TEMP 98.3
== END 2019-11-04 11:45 | disposition home or self-care (01) | DRG 785 ==
LOC: 4FBP 10:03
PROVIDERS: ADMIT Obstetrics & Gynecology; ATTEND Obstetrics & Gynecology
PROC: 0UB70ZZ Excision of Bilateral Fallopian Tubes, Open Approach (ICD-10-PCS; principal; 2019-11-02 12:00)
PROC: 10D00Z1 Extraction of Products of Conception, Low, Open Approach (ICD-10-PCS; principal; 2019-11-02 12:00)
DX: O34.211 Maternal care for low transverse scar from previous cesarean delivery (principal); J45.909 Unspecified asthma, uncomplicated; O99.52 Diseases of the respiratory system complicating childbirth; N85.8 Other specified noninflammatory disorders of uterus; O99.72 Diseases of the skin and subcutaneous tissue complicating childbirth; L29.9 Pruritus, unspecified; O99.62 Diseases of the digestive system complicating childbirth; K21.9 Gastro-esophageal reflux disease without esophagitis; Z37.0 Single live birth; Z30.2 Encounter for sterilization; Z3A.39 39 weeks gestation of pregnancy; Z79.899 Other long term (current) drug therapy; Z86.69 Personal history of other diseases of the nervous system and sense organs
CPT/HCPCS: 85025; 86850; 86900; 86901; 88302; 88307

== ENCOUNTER 2020-04-23 18:18 | Emergency (ER) | payer OTHER ==
[2020-04-23 18:23] VITALS: BP 128/61; PULSE 89; RESP 18; TEMP 99
[2020-04-23] MEDS ORDERED: IBUPROFEN 800 MG TAB PO STA (18:31)
--- NOTE | 2020-04-23 18:54 | XR ---
Result: History: Pain. Comparison: None available. Technique: 3 views of the left ankle. Findings: No acute fracture or dislocation is seen. Chronic appearing deformity on the navicular bone. The vis ualized osseous structures are in anatomic alignment. The talar dome is intact and the ankle mortise is congruent. The joint spaces are preserved. Impression: No acute fracture. Chronic appearing deformity of the navicular bone.
--- NOTE | 2020-04-23 19:36 | ED ---
Lower Extremity Injury HPI - General Chief Complaint: Extremity Injury, Lower Stated Complaint: LEFT FOOT INJURY Time Seen by Provider: 04/23/20 18:24 Source: patient, RN notes reviewed Mode of arrival: wheelchair Limitations: no limitations - History of Present Illness Initial Comments: 29-year-old black female patient presents to the emergency room after exercising today and jumping up onto a bench but missed falling to the ground twisting left ankle. - Related Data Home Medications Medication Instructions Recorded Confirmed Pnv No.95/Ferrous Fum/Folic AC 1 tab PO DAILY 12/26/18 11/02/19 [ Multivitamin Tablet] Previous Rx's Medication Instructions Recorded HYDROcodone/APAP 7.5-325MG [[place] 1 each PO Q6H PRN #28 tab 11/04/19 7.5-325] Ibuprofen [Motrin] 600 mg PO Q6HR PRN #60 tab 11/04/19 Ibuprofen [Motrin] 800 mg PO Q8HR PRN #30 tab 04/23/20 Allergies Allergy/AdvReac Type Severity Reaction Status Date / Time No Known Allergies Allergy Verified 04/23/20 18:23 Review of Systems ROS Statement: Those systems with pertinent positive or pertinent negative responses have been documented in the HPI. ROS Other: All systems not noted in ROS Statement are negative. Past Medical History Past Medical History: Asthma, GERD/Reflux Additional Past Medical History / Comment(s): migraine,. Obstetric history: She's had 3 sections and 2 spontaneous abortions. History of Any Multi-Drug Resistant Organisms: None Reported Past Surgical History: Section Past Anesthesia/Blood Transfusion Reactions: No Reported Reaction Past Psychological History: Anxiety Smoking Status: Never smoker Past Alcohol Use History: None Reported Past Drug Use History: None Reported - Past Family History Mother Family Medical History: No Reported History General Exam - General Exam Comments Initial Comments: Swelling noted to the left lateral malleolus patient unable to perform range of motion due to pain unable to perform flexion-extension or inversion and eversion. Distal pulses present. The cap refill is less than 2 seconds. Patient describes pain as throbbing, no pain with calf squeeze or of achilles tendon. No pain at the knee or lower extremity. Patient has abrasion to the left palmar surface of her hand at the base of the palm. But denies hand pain. Limitations: no limitations Head exam: Present: atraumatic, normocephalic, normal inspection Eye exam: Present: normal appearance, PERRL, EOMI. Absent: scleral icterus, conjunctival injection, periorbital swelling Respiratory exam: Present: normal lung sounds bilaterally. Absent: respiratory distress, wheezes, rales, rhonchi, stridor Cardiovascular Exam: Present: regular rate, normal rhythm, normal heart sounds. Absent: systolic murmur, diastolic murmur, rubs, gallop, clicks Left Ankle exam: Present: tenderness, swelling Neurological exam: Present: alert, oriented X3, CN II-XII intact Psychiatric exam: Present: normal affect, normal mood Course Vital Signs 04/23/20 18:20 Temperature 99.0 F Pulse Rate 89 Respiratory 18 Rate Blood Pressure 128/61 O2 Sat by Pulse 100 Oximetry Medical Decision Making - Medical Decision Making X-ray of the left ankle ordered negative for fracture. Patient does not have hand pain and has good range of motion therefore x-ray was not ordered. Air sp lint applied to the left ankle. Patient directed to use crutches, rest, ice and elevate and take Motrin every 8 hours for the next 3 days and [facility] Disposition Clinical Impression: Ankle sprain Disposition: HOME SELF-CARE Condition: Stable Instructions (If sedation given, give patient instructions): Ankle Sprain (ED) Prescriptions: Ibuprofen [Motrin] 800 mg PO Q8HR PRN #30 tab PRN Reason: Pain Is patient prescribed a controlled substance at d/c from ED?: No Referrals: Nonstaff,Physician [Primary Care Provider] - 1-2 days Time of Disposition: 19:49
== END 2020-04-23 19:37 | disposition home or self-care (01) ==
LOC: EC 18:18
DX: S93.402A Sprain of unspecified ligament of left ankle, initial encounter (principal); W01.0XXA Fall on same level from slipping, tripping and stumbling without subsequent striking against object, initial encounter; Y93.39 Activity, other involving climbing, rappelling and jumping off
CPT/HCPCS: 99283

== ENCOUNTER → 2021-07-29 | Outpatient (CLI) | payer OTHER ==
--- NOTE | 2021-07-29 11:25 | USB ---
Reason for Exam: Clinical finding. Patient History: Menarche at age 13. First Full-Term at age 18. Hormonal Contraceptives for 3 months. Maternal grandmother had breast cancer, age 68. Technique: Method: Whole Breast Handheld. Prior Study Comparison: 08/14/2018 Bilateral Diagnostic Mammogram, [facility]. 08/14/2018 Right Diagnostic Ultrasound, [facility]. Findings: The whole breast of both breasts, the axilla of both breasts and the retroareolar of both breasts were scanned. No solid or cystic masses are identified.. Overall Assessment: Benign, BI-RAD 2 Electronically signed and approved by: Neel Riggs M.D. Radiologis
== END | disposition home or self-care (01) ==
LOC: RADUSWWP 10:30
PROVIDERS: ATTEND Obstetrics & Gynecology
DX: N64.4 Mastodynia (principal); Z80.3 Family history of malignant neoplasm of breast

== ENCOUNTER 2022-05-09 22:35 | Emergency (ER) | payer OTHER ==
[2022-05-09 22:44] VITALS: TEMP 98.5
[2022-05-09] MEDS ORDERED: SODIUM CHLORIDE 0.9% 1,000 ML IV ONE (23:22)
[2022-05-09 23:52] LABS: Basophils # (A) 0.1 k/uL (0-0.2); Basophils % (A) 1 %; Eosinophils # (A) 0.3 k/uL (0-0.7); Eosinophils % (A) 4 %; HGB 11.8 gm/dL (11.4-16.0); Lymphocytes # (A) 3.1 k/uL (1.0-4.8); Lymphocytes % (A) 41 %; MCH 31.2 pg (25.0-35.0); MCHC 33.6 g/dL (31.0-37.0); MCV 92.7 fL (80.0-100.0); Mean Platelet Volume 7.7; Monocytes # (A) 0.3 k/uL (0-1.0); Monocytes % (A) 3 %; Neutrophils # (A) 3.8 k/uL (1.3-7.7); Neutrophils % (A) 50 %; Platelet Count 250 k/uL (150-450); RBC 3.78 m/uL (3.80-5.40); RDW 11.9 % (11.5-15.5); WBC 7.5 k/uL (3.8-10.6)
[2022-05-09 23:54] LABS: Appearance,Urine Clear (Clear); Bilirubin,Urine Negative (Negative); Blood,Urine Negative (Negative); Color,Urine Yellow; Glucose,Urine (UA) Negative (Negative); Ketones,Urine Negative (Negative); Leukocyte Esterase,Urine Negative (Negative); Nitrite,Urine Negative (Negative); PH, Urine 7.5 (5.0-8.0); Protein,Urine Trace (Negative); Specific Gravity,Urine 1.025 (1.001-1.035)
[2022-05-10 00:02] LABS: ALT 19 U/L (4-34); AST 18 U/L (14-36); African American GFR (CKD) >90 (>60 ml/min/1.73 sqM); Alkaline Phosphatase 68 U/L (38-126); Anion Gap 9 mmol/L; Blood Urea Nitrogen 12 mg/dL (7-17); Calcium 8.9 mg/dL (8.4-10.2); Carbon Dioxide 25 mmol/L (22-30); Chloride 105 mmol/L (98-107); Glucose 84 mg/dL (74-99); Lipase 114 U/L (23-300); Magnesium 2.1 mg/dL (1.6-2.3); Non-African American GFR(CKD) >90 (>60 ml/min/1.73 sqM); Potassium 4.7 mmol/L (3.5-5.1); Sodium 139 mmol/L (137-145); Total Bilirubin 0.4 mg/dL (0.2-1.3); Total Protein 7.2 g/dL (6.3-8.2)
[2022-05-10 00:05] LABS: INR 0.9 (<1.2); Partial Thromboplastin Time 23.2 sec (22.0-30.0); Prothrombin Time 9.8 sec (9.0-12.0)
--- NOTE | 2022-05-10 00:33 | ED ---
General Adult HPI - General Chief complaint: Dizziness Stated complaint: Dizziness Time Seen by Provider: 05/09/22 22:47 Source: patient Mode of arrival: ambulatory Limitations: no limitations - History of Present Illness Initial comments: This is a 31-year-old female with no past medical history presents emergency department for left arm intermittent numbness and chest pain. The patient stated that she has been feeling "odd over the last several days" and stated this is happened to her previously 4 years ago. The patient stated at that time, for years ago, she had blurry vision and intermittent headaches. The patient a full neurologic workup including MRIs without any known etiology. The patient stated that she has followed up with a neurologist for the last 4 years and an etiology has not been known. The patient stated that she became worse today and had this intermittent numbness and tingling in her left arm that was similar to her previous episodes. The patient stated that she had full range of motion and did not have any motor deficits. The patient denied any headaches, blurry vision, lightheadedness, nausea and vomiting. The patient was resting in bed comfortably. - Related Data Home Medications Medication Instructions Recorded Confirmed Pnv No.95/Ferrous Fum/Folic AC 1 tab PO DAILY 12/26/18 11/02/19 [ Multivitamin Tablet] Previous Rx's Medication Instructions Recorded HYDROcodone/APAP 7.5-325MG [[place] 1 each PO Q6H PRN #28 tab 11/04/19 7.5-325] Ibuprofen [Motrin] 600 mg PO Q6HR PRN #60 tab 11/04/19 Ibuprofen [Motrin] 800 mg PO Q8HR PRN #30 tab 04/23/20 Allergies Allergy/AdvReac Type Severity Reaction Status Date / Time No Known Allergies Allergy Verified 05/09/22 22:44 Review of Systems ROS Statement: Those systems with pertinent positive or pertinent negative responses have been documented in the HPI. ROS Other: All systems not noted in ROS Statement are negative. Past Medical History Past Medical History: Asthma, GERD/Reflux Additional Past Medical History / Comment(s): migraine,. Obstetric history: She's had 3 sections and 2 spontaneous abortions. History of Any Multi-Drug Resistant Organisms: None Reported Past Surgical History: Section Past Anesthesia/Blood Transfusion Reactions: No Reported Reaction Past Psychological History: Anxiety Smoking Status: Never smoker Past Alcohol Use History: None Reported Past Drug Use History: None Reported - Past Family History Mother Family Medical History: No Reported History General Exam Limitations: no limitations General appearance: alert, in no apparent distress Head exam: Present: atraumatic, normocephalic, normal inspection Eye exam: Present: normal appearance, PERRL Pupils: Present: normal accommodation ENT exam: Present: normal exam, normal oropharynx, mucous membranes moist Neck exam: Present: normal inspection, full ROM Respiratory exam: Present: normal lung sounds bilaterally Cardiovascular Exam: Present: regular rate, normal rhythm, normal heart sounds GI/Abdominal exam: Present: soft, normal bowel sounds Extremities exam: Present: normal inspection, full ROM Back exam: Present: normal inspection, full ROM Neurological exam: Present: alert, oriented X3, CN II-XII intact Psychiatric exam: Present: normal affect, normal mood Skin exam: Present: warm, dry Course Vital Signs 05/09/22 05/10/22 22:41 00:23 Temperature 98.5 F Pulse Rate 94 82 Respiratory 16 18 Rate Blood Pressure 131/84 O2 Sat by Pulse 100 99 Oximetry EKG Findings - EKG Comments: EKG Findings:: An EKG was obtained and was interpreted by myself showing a rate of 79, MD interval 176, QRS duration of 89 and QTC of 410. This EKG showed a normal sinus rhythm with no ST segment elevation or depression noted. Medical Decision Making - Medical Decision Making Was pt. sent in by a medical professional or institution ([facility], [employer], urgent care, hospital, or detention...) When possible be specific @ -No Did you speak to anyone other than the patient for history (EMS, parent, family, police, friend...)? What history was obtained from this source @ -No Did you review nursing and triage notes (agree or disagree)? Why? @ -I reviewed and agree with nursing and triage notes Were old charts reviewed (outside hosp., previous admission, EMS record, old EKG, old radiological studies, urgent care reports/EKG's, detention records)? Report findings @ -No old charts were reviewed Differential Diagnosis (chest pain, altered mental status, abdominal pain women, abdominal pain men, vaginal bleeding, weakness, fever, dyspnea, syncope, headache, dizziness, GI bleed, back pain, seizure, CVA, palpatations, mental he alth)? @ -ACS, pneumonia, syncope EKG interpreted by me (3pts min.). @ -As above X-rays interpreted by me (1pt min.). @ -Chest x-ray was performed and was interpreted by myself showing no acute process. CT interpreted by me (1pt min.). @ -None done U/S interpreted by me (1pt. min.). @ -None done What testing was considered but not performed or refused? (CT, X-rays, U/S, labs)? Why? @ -None What meds were considered but not given or refused? Why? @ -None Did you discuss the management of the patient with other professionals (pro fessionals i.e. , PA, W[employer] PROJECT MANAGER, lab, RT, psych nurse, social services, staff physical therapist, teacher, patrol officer, shoe parts caser)? Give summary @ -No Was smoking cessation discussed for >3mins.? @ -No Was critical care preformed (if so, how long)? @ -No Were there social determinants of health that impacted care today? How? (Homelessness, low income, unemployed, alcoholism, drug addiction, transporta tion, low edu. Level, literacy, decrease access to med. care, prison, rehab)? @ -No Was there de-escalation of care discussed even if they declined (Discuss DNR or withdrawal of care, Hospice)? DNR status @ -No What co-morbidities impacted this encounter? (DM, HTN, Smoking, COPD, CAD, Cancer, CVA, ARF, Chemo, Hep., AIDS, mental health diagnosis, sleep apnea, morbid obesity)? @ -None Was patient admitted / discharged? Hospital course, mention meds given and route, prescriptions, significant lab abnormalities, going to OR and other pertinent info. @ -The patient was seen and evaluated in the emergency department. Physical exam, the patient was resting in bed without any acute distress. Vital signs admission were stable. Laboratory workup, imaging and EKGs were all obtained and all within normal limits. The patient did receive 1 L of normal saline fluid. I reevaluation, the patient stated that her symptoms are greatly improved. The patient did not have any etiology known for her symptoms as is consistent with her previous episodes of the symptoms. The patient was advised to continue to monitor them and to follow-up with her primary care physician as well as neurologist for further workup and evaluation. The patient was agreeable to this and all her questions were answered appropriately. The patient was discharged home in stable condition. Undiagnosed new problem with uncertain prognosis? @ -No Drug Therapy requiring intensive monitoring for toxicity (Heparin, Nitro, Insulin, Cardizem)? @ -No Were any procedures done? @ -No Diagnosis/symptom? @ -Numbness, tingling, NOS with presyncope Acute, or Chronic, or Acute on Chronic? @ -Acute on chronic Uncomplicated (without systemic symptoms) or Complicated (systemic symptoms)? @ -Uncomplicated Side effects of treatment? @ -No Exacerbation, Progression, or Severe Exacerbation? @ -No Poses a threat to life or bodily function? How? (Chest pain, [place], [place], pneumonia, PE, COPD, DKA, ARF, appy, cholecystitis, CVA, Diverticulitis, Homicidal, Suicidal, threat to staff... and all critical care pts) @ -No - Lab Data Result diagrams: 05/09/22 23:33 05/09/22 23:33 Lab Results 05/09/22 05/09/22 05/09/22 Range/Units 23:33 23:33 23:33 WBC 7.5 (3.8-10.6) k/uL RBC 3.78 L (3.80-5.40) m/uL Hgb 11.8 (11.4-16.0) gm/dL Hct 35.0 (34.0-46.0) % MCV 92.7 (80.0-100.0) fL MCH 31.2 (25.0-35.0) pg MCHC 33.6 (31.0-37.0) g/dL RDW 11.9 (11.5-15.5) % Plt Count 250 (150-450) k/uL MPV 7.7 Neutrophils % 50 % Lymphocytes % 41 % Monocytes % 3 % Eosinophils % 4 % Basophils % 1 % Neutrophils # 3.8 (1.3-7.7) k/uL Lymphocytes # 3.1 (1.0-4.8) k/uL Monocytes # 0.3 (0-1.0) k/uL Eosinophils # 0.3 (0-0.7) k/uL Basophils # 0.1 (0-0.2) k/uL PT 9.8 (9.0-12.0) sec INR 0.9 (<1.2) APTT 23.2 (22.0-30.0) sec D-Dimer 0.51 (<0.60) mg/L FEU Sodium (137-145) mmol/L Potassium (3.5-5.1) mmol/L Chloride (98-107) mmol/L Carbon Dioxide (22-30) mmol/L Anion Gap mmol/L BUN (7-17) mg/dL Creatinine (0.52-1.04) mg/dL Est GFR (CKD-EPI)AfAm (>60 ml/min/1.73 sqM) Est GFR (CKD-EPI)NonAf (>60 ml/min/1.73 sqM) Glucose (74-99) mg/dL Calcium (8.4-10.2) mg/dL Magnesium (1.6-2.3) mg/dL Total Bilirubin (0.2-1.3) mg/dL AST (14-36) U/L ALT (4-34) U/L Alkaline Phosphatase (38-126) U/L Troponin I (0.000-0.034) ng/mL NT-Pro-B Natriuret Pep pg/mL Total Protein (6.3-8.2) g/dL Albumin (3.5-5.0) g/dL Lipase (23-300) U/L Urine Color Yellow Urine Appearance Clear (Clear) Urine pH 7.5 (5.0-8.0) Ur Specific Dexter 1.025 (1.001-1.035) Urine Protein Trace H (Negative) Urine Glucose (UA) Negative (Negative) Urine Ketones Negative (Negative) Urine Blood Negative (Negative) Urine Nitrite Negative (Negative) Urine Bilirubin Negative (Negative) Urine Urobilinogen 2.0 (<2.0) mg/dL Ur Leukocyte Esterase Negative (Negative) Urine HCG, Qual (Not Detectd) 05/09/22 05/09/22 05/09/22 Range/Units 23:33 23:33 23:33 WBC (3.8-10.6) k/uL RBC (3.80-5.40) m/uL Hgb (11.4-16.0) gm/dL Hct (34.0-46.0) % MCV (80.0-100.0) fL MCH (25.0-35.0) pg MCHC (31.0-37.0) g/dL RDW (11.5-15.5) % Plt Count (150-450) k/uL MPV Neutrophils % % Lymphocytes % % Monocytes % % Eosinophils % % Basophils % % Neutrophils # (1.3-7.7) k/uL Lymphocytes # (1.0-4.8) k/uL Monocytes # (0-1.0) k/uL Eosinophils # (0-0.7) k/uL Basophils # (0-0.2) k/uL PT (9.0-12.0) sec INR (<1.2) APTT (22.0-30.0) sec D-Dimer (<0.60) mg/L FEU Sodium 139 (137-145) mmol/L Potassium 4.7 (3.5-5.1) mmol/L Chloride 105 (98-107) mmol/L Carbon Dioxide 25 (22-30) mmol/L Anion Gap 9 mmol/L BUN 12 (7-17) mg/dL Creatinine 0.69 (0.52-1.04) mg/dL Est GFR (CKD-EPI)AfAm >90 (>60 ml/min/1.73 sqM) Est GFR (CKD-EPI)NonAf >90 (>60 ml/min/1.73 sqM) Glucose 84 (74-99) mg/dL Calcium 8.9 (8.4-10.2) mg/dL Magnesium 2.1 (1.6-2.3) mg/dL Total Bilirubin 0.4 (0.2-1.3) mg/dL AST 18 (14-36) U/L ALT 19 (4-34) U/L Alkaline Phosphatase 68 (38-126) U/L Troponin I <0.012 (0.000-0.034) ng/mL NT-Pro-B Natriuret Pep pg/mL Total Protein 7.2 (6.3-8.2) g/dL Albumin 4.0 (3.5-5.0) g/dL Lipase 114 (23-300) U/L Urine Color Urine Appearance (Clear) Urine pH (5.0-8.0) Ur Specific Dexter (1.001-1.035) Urine Protein (Negative) Urine Glucose (UA) (Negative) Urine Ketones (Negative) Urine Blood (Negative) Urine Nitrite (Negative) Urine Bilirubin (Negative) Urine Urobilinogen (<2.0) mg/dL Ur Leukocyte Esterase (Negative) Urine HCG, Qual Not Detected (Not Detectd) 05/09/22 Range/Units 23:33 WBC (3.8-10.6) k/uL RBC (3.80-5.40) m/uL Hgb (11.4-16.0) gm/dL Hct (34.0-46.0) % MCV (80.0-100.0) fL MCH (25.0-35.0) pg MCHC (31.0-37.0) g/dL RDW (11.5-15.5) % Plt Count (150-450) k/uL MPV Neutrophils % % Lymphocytes % % Monocytes % % Eosinophils % % Basophils % % Neutrophils # (1.3-7.7) k/uL Lymphocytes # (1.0-4.8) k/uL Monocytes # (0-1.0) k/uL Eosinophils # (0-0.7) k/uL Basophils # (0-0.2) k/uL PT (9.0-12.0) sec INR (<1.2) APTT (22.0-30.0) sec D-Dimer (<0.60) mg/L FEU Sodium (137-145) mmol/L Potassium (3.5-5.1) mmol/L Chloride (98-107) mmol/L Carbon Dioxide (22-30) mmol/L Anion Gap mmol/L BUN (7-17) mg/dL Creatinine (0.52-1.04) mg/dL Est GFR (CKD-EPI)AfAm (>60 ml/min/1.73 sqM) Est GFR (CKD-EPI)NonAf (>60 ml/min/1.73 sqM) Glucose (74-99) mg/dL Calcium (8.4-10.2) mg/dL Magnesium (1.6-2.3) mg/dL Total Bilirubin (0.2-1.3) mg/dL AST (14-36) U/L ALT (4-34) U/L Alkaline Phosphatase (38-126) U/L Troponin I (0.000-0.034) ng/mL NT-Pro-B Natriuret Pep <11 pg/mL Total Protein (6.3-8.2) g/dL Albumin (3.5-5.0) g/dL Lipase (23-300) U/L Urine Color Urine Appearance (Clear) Urine pH (5.0-8.0) Ur Specific Dexter (1.001-1.035) Urine Protein (Negative) Urine Glucose (UA) (Negative) Urine Ketones (Negative) Urine Blood (Negative) Urine Nitrite (Negative) Urine Bilirubin (Negative) Urine Urobilinogen (<2.0) mg/dL Ur Leukocyte Esterase (Negative) Urine HCG, Qual (Not Detectd) Disposition Clinical Impression: Pre-syncope Disposition: HOME SELF-CARE Condition: Stable Instructions (If sedation given, give patient instructions): Near Syncope (ED) Is patient prescribed a controlled substance at d/c from ED?: No Referrals: Dionte James DO [Primary Care Provider] - 1-2 days Time of Disposition: 01:30
--- NOTE | 2022-05-10 00:48 | XR ---
EXAMINATION TYPE: XR chest 2V DATE OF EXAM: 05/10/2022 COMPARISON: 03/04/2019 HISTORY: Chest pain TECHNIQUE: 2 views FINDINGS: Heart and mediastinum are normal. Lungs are clear. Diaphragm is normal. Bony thorax is inta ct and the pulmonary vascularity is normal. IMPRESSION: Normal chest. No change.
[2022-05-10 02:11] VITALS: BP 122/74; PULSE 80; RESP 16
== END 2022-05-10 01:55 | disposition home or self-care (01) ==
LOC: EC 22:35
DX: R55 Syncope and collapse (principal); J45.909 Unspecified asthma, uncomplicated; F41.9 Anxiety disorder, unspecified
CPT/HCPCS: 36415; 71046; 80053; 81003; 81025; 83690; 83735; 83880; 84484; 85025; 85379; 85610; 85730; 93005; 96360; 99284

== ENCOUNTER → 2022-09-13 | Outpatient (CLI) | payer OTHER ==
--- NOTE | 2022-09-13 08:18 | MM ---
Reason for Exam: Clinical finding. Last mammogram was performed 4 year(s) and 1 month(s) ago. Patient History: Menarche at age 13. First Full-Term at age 18. Hormonal Contraceptives for 3 months. Maternal grandmother had breast cancer, age 68. Last menstrual period: 09/03/2022 Prior Study Comparison: 08/14/2018 Bilateral Diagnostic Mammogram, [facility]. 08/14/2018 Right Diagnostic Ultrasound, [facility]. 07/29/2021 Bilateral US breast BILAT, [facility]. Tissue Density: The breast tissue is almost entirely fat. Findings: Analyzed By CAD. No new suspicious masses, calcifications or distortions. Overall Assessment: Incomplete: need additional imaging evaluation, BI-RAD 0 Management: Diagnostic Breast Ultrasound of the left breast. Results were given to the patient verbally at the time of exam. Patient should continue monthly self-breast exams. A clinical breast exam by your physician is recommended on an annual basis. This exam should not preclude additional follow-up of suspicious palpable abnormalities. Note on Deepti scores and lifetime risk: 1. A Deepti score greater than 3% is considered moderate risk. If this is the case, consider specialist referral to assess eligibility for a risk reducing agent. 2. If overall lifetime risk for the development of breast cancer is 20% or higher, the patient may qualify for future screening with alternating mammogram and breast MRI. Electronically signed and approved by: Jose Gonzalez DO
--- NOTE | 2022-09-13 08:53 | USB ---
Reason for Exam: Clinical finding. Patient History: Menarche at age 13. First Full-Term at age 18. Hormonal Contraceptives for 3 months. Maternal grandmother had breast cancer, age 68. Technique: Method: Targeted. Prior Study Comparison: 08/14/2018 Bilateral Diagnostic Mammogram, [facility]. Findings: The upper section of the breast of the left breast, the area of palpable concern of the left breast, the axilla of the left breast and the retroareolar of the left breast were scanned. Imaged: Ultrasound imaging of: Area of concern, retroareolar region and axilla. Nothing to correlate with patient's palpable abnormality. No evidence for organizing fluid collection or mass. Overall Assessment: Negative, BI-RAD 1 Management: Screening Mammogram of both breasts in 1 year. A clinical breast exam by your physician is recommended on an annual basis and results should be correlated with mammographic findings. This exam should not preclude additional follow-up of suspicious palpable abnormalities. Results were given to the patient verbally at the time of exam. Electronically signed and approved by: Jose Gonzalez DO
== END | disposition home or self-care (01) ==
LOC: RADMAMWWP 07:50
PROVIDERS: ATTEND Obstetrics & Gynecology
DX: N63.10 Unspecified lump in the right breast, unspecified quadrant (principal); N63.20 Unspecified lump in the left breast, unspecified quadrant; N64.4 Mastodynia; Z80.3 Family history of malignant neoplasm of breast
CPT/HCPCS: 77066; 76642; G0279; 77062

== ENCOUNTER 2023-02-21 22:14 | Emergency (ER) | payer OTHER ==
[2023-02-21 23:10] VITALS: BP 137/82; PULSE 92; RESP 20; TEMP 98.4
--- NOTE | 2023-02-21 23:40 | ED ---
ENT HPI - General Chief complaint: ENT Stated complaint: body aches throat pain Time Seen by Provider: 02/21/23 23:30 Source: patient, RN notes reviewed Mode of arrival: ambulatory Limitations: no limitations - History of Present Illness Initial comments: This is a 32-year-old female who presents to the emergency department for left ear pain, body aches, and a sore throat. Symptoms began yesterday. Denies any fevers, but states that she does feel very cold. Reports a history of asthma, but denies any chest pain or difficulty breathing. She does present with her daughter who has similar symptoms. MD complaint: sore throat - Related Data Home Medications Medication Instructions Recorded Confirmed Pnv No.95/Ferrous Fum/Folic AC 1 tab PO DAILY 12/26/18 11/02/19 [ Multivitamin Tablet] Previous Rx's Medication Instructions Recorded HYDROcodone/APAP 7.5-325MG [[place] 1 each PO Q6H PRN #28 tab 11/04/19 7.5-325] Ibuprofen [Motrin] 600 mg PO Q6HR PRN #60 tab 11/04/19 Ibuprofen [Motrin] 800 mg PO Q8HR PRN #30 tab 04/23/20 Amoxicillin 875 mg PO Q12HR 7 Days #14 tablet 02/22/23 Allergies Allergy/AdvReac Type Severity Reaction Status Date / Time No Known Allergies Allergy Verified 05/09/22 22:44 Review of Systems ROS Statement: Those systems with pertinent positive or pertinent negative responses have been documented in the HPI. ROS Other: All systems not noted in ROS Statement are negative. Past Medical History Past Medical History: Asthma, GERD/Reflux Additional Past Medical History / Comment(s): migraine,. Obstetric history: She's had 3 sections and 2 spontaneous abortions. History of Any Multi-Drug Resistant Organisms: None Reported Past Surgical History: Section Past Anesthesia/Blood Transfusion Reactions: No Reported Reaction Past Psychological History: Anxiety Smoking Status: Never smoker Past Alcohol Use History: None Reported Past Drug Use History: None Reported - Past Family History Mother Family Medical History: No Reported History General Exam - General Exam Comments Initial Comments: Visual Physical Exam Vital signs reviewed General: Well-appearing, nontoxic, no acute distress. Head: Normocephalic, atraumatic Eyes: PERRLA, EOMI ENT: Airway patent Chest: Nonlabored breathing Skin: No visual rash, normal skin tone Neuro: Alert and oriented 3 Musculoskeletal: No gross abnormalities Limitations: no limitations General appearance: alert, in no apparent distress Head exam: Present: atraumatic, normocephalic, normal inspection ENT exam: Present: normal oropharynx, mucous membranes moist, other (Bulging and erythema of the left TM with left canal erythema.) Respiratory exam: Present: normal lung sounds bilaterally. Absent: respiratory distress, wheezes, rales, rhonchi, stridor Cardiovascular Exam: Present: regular rate, normal rhythm, normal heart sounds. Absent: systolic murmur, diastolic murmur, rubs, gallop, clicks Neurological exam: Present: alert, oriented X3, CN II-XII intact Psychiatric exam: Present: normal affect, normal mood Skin exam: Present: warm, dry, intact, normal color. Absent: rash Course Vital Signs 02/21/23 22:50 Temperature 98.4 F Pulse Rate 92 Respiratory 20 Rate Blood Pressure 137/82 O2 Sat by Pulse 99 Oximetry Medical Decision Making - Medical Decision Making This is a 32-year-old female who presents to the emergency department for body aches and ear pain. Was pt. sent in by a medical professional or institution? @ -No Did you speak to anyone other than the patient for history? @ -No Did you review nursing and triage notes? @ -Yes, and I agree, it is accurate with regards to the patient's symptoms. Were old charts reviewed? @ -No Differential Diagnosis? @ Differential Ear Pain: -Otitis media, otitis externa, eustachian tube dysfunction, allergic rhinitis, barotrauma, bullous myringitis, this is not meant to be an all-inclusive list. EKG interpreted by me (3pts min.)? @ -Not obtained X-rays interpreted by me (1pt min.)? @ -Not obtained CT interpreted by me (1pt min.)? @ -Not obtained U/S interpreted by me (1pt. min.)? @ -Not obtained What testing was considered but not performed? (CT, X-rays, U/S, labs)? Why? @ -None What meds were considered but not given? Why? @ -None Did you discuss the management of the patient with other professionals? @ -No Did you reconcile home meds? @ -No Was smoking cessation discussed for >3mins.? @ -No Was critical care preformed (if so, how long)? @ -No Were there social determinants of health that impacted care today? How? (Homelessness, low income, unemployed, alcoholism, drug addiction, transportation, low edu. Level, literacy, decrease access to med. care, correction, rehab)? @ -No Was there de-escalation of care discussed even if they declined? (Discuss DNR or withdrawal of care, Hospice)? @ -No What co-morbidities impacted this encounter? (DM, HTN, Smoking, COPD, CAD, Cancer, CVA, Hep., AIDS, mental health diagnosis, sleep apnea, morbid obesity)? @ -Asthma Was patient admitted / discharged? @ -Discharged. COVID, influenza, and RSV testing were negative. Rapid strep test negative. Physical examination is consistent with otitis media and externa. She was given an initial dose of amoxicillin in the emergency department and a bottle of Ciprodex drops. IM toradol administered for body aches, which the patient found beneficial. Prescription for amoxicillin provided with dosing instructions reviewed. She was also sent home with the Ciprodex drops to use twice daily for 7 days. Advised ibuprofen and Tylenol as needed for pain relief and follow up with her primary care provider. Undiagnosed new problem with uncertain prognosis? @ -None Drug Therapy requiring intensive monitoring for toxicity (Heparin, Nitro, Insulin, Cardizem)? @ -None Were any procedures done? @ -None Diagnosis/symptom? @ -Otitis media, otitis externa Acute, or Chronic, or Acute on Chronic? @ -Acute Uncomplicated (without systemic symptoms) or Complicated (systemic symptoms)? @ -Uncomplicated Side effects of treatment? @ -None Exacerbation, Progression, or Severe Exacerbation] @ -Not applicable Poses a threat to life or bodily function? @ -No Return precautions reviewed in depth, the patient is instructed to return to the emergency department with any new, worsening, or concerning symptoms. Patient verbalized understanding. This case was discussed in detail with the attending ED physician, Dr. Aldridge. Presentation, findings, and treatment plan discussed in detail as well. - Lab Data Lab Results 02/21/23 02/21/23 Range/Units 22:55 22:55 Influenza Type A (PCR) Not Detected (Not Detectd) Influenza Type B (PCR) Not Detected (Not Detectd) RSV (PCR) Not Detected (Not Detectd) SARS-CoV-2 (PCR) Not Detected (Not Detectd) Group A Strep (PCR) NOT DETECTED (Not Detectd) Disposition Clinical Impression: Otitis media, Otitis externa Disposition: HOME SELF-CARE Condition: Stable Instructions (If sedation given, give patient instructions): Swimmer's Ear (ED), Ear Infection (ED) Additional Instructions: Return to the emergency department with any new, worsening, or concerning symptoms. Use the eardrops provided as 4 drops to the left ear twice daily for 7 days. If your right ear begins to hurt as well, you can also use it in that ear. Take the oral antibiotic as prescribed for 7 days. Alternate with i buprofen and Tylenol as needed for pain relief. Follow up with your primary care provider in 1-2 days. Prescriptions: Amoxicillin 875 mg PO Q12HR 7 Days #14 tablet Is patient prescribed a controlled substance at d/c from ED?: No Referrals: Horacio Mckeon MD [Primary Care Provider] - 1-2 days
[2023-02-22] MEDS ORDERED: KETOROLAC 15 MG/ML 1 ML VIAL IM STA (00:08)
[2023-02-22] MEDS ORDERED: CIPROFLOXACIN-DEXAMETH 0.3-0.1% DROPS 7.5 ML BTL LEFT EAR STA (00:08)
[2023-02-22] MEDS ORDERED: AMOXICILLIN 875 MG TAB PO STA (00:08)
== END 2023-02-22 01:54 | disposition home or self-care (01) ==
LOC: EC 22:14
DX: H66.92 Otitis media, unspecified, left ear (principal); H60.92 Unspecified otitis externa, left ear; J45.909 Unspecified asthma, uncomplicated; Z20.822 Contact with and (suspected) exposure to COVID-19
CPT/HCPCS: 87636; 87651; 96372; 99283

== ENCOUNTER 2023-10-05 12:39 | Emergency (ER) | payer OTHER ==
[2023-10-05] MEDS ORDERED: ONDANSETRON 4 MG/2 ML VIAL ONE (13:57)
[2023-10-05] MEDS ORDERED: FAMOTIDINE 20 MG TAB ONE (13:58)
[2023-10-05] MEDS ORDERED: MAG HYDROX/AL HYDROX/SIMETH 30 ML CUP ONE (13:58)
[2023-10-05] MEDS ORDERED: MORPHINE SULFATE 4 MG/ML SYRINGE ONE (13:58)
[2023-10-05] MEDS ORDERED: SODIUM CHLORIDE 0.9% 1,000 ML BAG ONE (14:00)
== END 2023-10-05 15:25 | disposition left against medical advice (07) ==
LOC: EC 12:39
DX: R07.9 Chest pain, unspecified (principal); K59.00 Constipation, unspecified; R11.2 Nausea with vomiting, unspecified; R10.13 Epigastric pain; Z53.29 Procedure and treatment not carried out because of patient's decision for other reasons
CPT/HCPCS: 83880; 80053; 82150; 83605; 83690; 84484; 85025; 85610; 85730; 81003; 84703; 99284; 96374; 96361; J2270

== ENCOUNTER 2024-01-11 07:44 | Emergency (ER) | payer OTHER ==
[2024-01-11 07:54] VITALS: RESP 16
--- NOTE | 2024-01-11 08:29 | ED ---
ENT HPI - General Chief complaint: Dental/Oral Stated complaint: dental pain Time Seen by Provider: 01/11/24 08:28 Source: patient, RN notes reviewed Mode of arrival: ambulatory Limitations: no limitations - History of Present Illness Initial comments: 33-year-old female presented the ER with a chief complaint of dental pain. Patient has braces in place and states that these have been in place for approximately 2 years. She states for the past week she has been having progressive pain to her left upper and lower first molar. She states her upper molar is fractured and she is having difficulty following up with her electric drill operator and dentist as they are scheduling 6 months out. She has been taking [id number] ibuprofen and using Orajel with minimal pain relief. She states it is making it difficult for her to sleep and eat due to the pain. She denies any fevers, drainage or foul taste, tongue swelling or oropharynx swelling. No other complaints. - Related Data Home Medications Medication Instructions Recorded Confirmed Pnv No.95/Ferrous Fum/Folic AC 1 tab PO DAILY 12/26/18 11/02/19 [ Multivitamin Tablet] Previous Rx's Medication Instructions Recorded HYDROcodone/APAP 7.5-325MG [[place] 1 each PO Q6H PRN #28 tab 11/04/19 7.5-325] Ibuprofen [Motrin] 600 mg PO Q6HR PRN #60 tab 11/04/19 Ibuprofen [Motrin] 800 mg PO Q8HR PRN #30 tab 04/23/20 Amoxicillin 875 mg PO Q12HR 7 Days #14 tablet 02/22/23 Acetaminophen-Codeine 300-30mg 1 tab PO Q4H PRN #20 tablet 01/11/24 [Tylenol #3] Amoxic-Pot Clav 875-125Mg 1 tab PO Q12HR #20 tab 01/11/24 [Augmentin 875-125] Allergies Allergy/AdvReac Type Severity Reaction Status Date / Time No Known Allergies Allergy Verified 01/11/24 07:54 Review of Systems ROS Statement: Those systems with pertinent positive or pertinent negative responses have been documented in the HPI. ROS Other: All systems not noted in ROS Statement are negative. Past Medical History Past Medical History: Asthma, GERD/Reflux Additional Past Medical History / Comment(s): migraine,. Obstetric history: She's had 3 sections and 2 spontaneous abortions. History of Any Multi-Drug Resistant Organisms: None Reported Past Surgical History: Section Past Anesthesia/Blood Transfusion Reactions: No Reported Reaction Past Psychological History: Anxiety Smoking Status: Never smoker Past Alcohol Use History: None Reported Past Drug Use History: None Reported - Past Family History Mother Family Medical History: No Reported History General Exam Limitations: no limitations General appearance: alert, in no apparent distress ENT exam: Present: mucous membranes moist, other (Braces in place. There is a fracture to right upper first molar. There is no drainable abscess.) Neck exam: Present: normal inspection. Absent: tenderness, meningismus, lymphadenopathy Respiratory exam: Present: normal lung sounds bilaterally. Absent: respiratory distress, wheezes, rales, rhonchi, stridor Cardiovascular Exam: Present: regular rate, normal rhythm, normal heart sounds. Absent: systolic murmur, diastolic murmur, rubs, gallop, clicks Neurological exam: Present: alert, oriented X3, CN II-XII intact Skin exam: Present: warm, dry, intact, normal color. Absent: rash Course Vital Signs 01/11/24 07:52 Temperature 97.5 F L Pulse Rate 64 Respiratory 16 Rate Blood Pressure 112/73 O2 Sat by Pulse 100 Oximetry Medical Decision Making - Medical Decision Making Was pt. sent in by a medical professional or institution (TAL Rendon, ASSET PROTECTION REPRESENTATIVE, urgent care, hospital, or alf...) When possible be specific @ -[No] Did you speak to anyone other than the patient for history (EMS, parent, family, police, friend...)? What history was obtained from this source @ -[No] Did you review nursing and triage notes (agree or disagree)? Why? @ -[I reviewed and agree with nursing and triage notes] Were old charts reviewed (outside hosp., previous admission, EMS record, old EKG, old radiological studies, urgent care reports/EKG's, alf records)? Report findings @ -[No old charts were reviewed] Differential Diagnosis (chest pain, altered mental status, abdominal pain women, abdominal pain men, vaginal bleeding, weakness, fever, dyspnea, syncope, headache, dizziness, GI bleed, back pain, seizure, CVA, palpatations, mental health, musculoskeletal)? @ -Dental abscess, fractured tooth, pulpitis, Chun angina... This list is not meant to be all-inclusive EKG interpreted by me (3pts min.). @ -[None done] X-rays interpreted by me (1pt min.). @ -[None done] CT interpreted by me (1pt min.). @ -[None done] U/S interpreted by me (1pt. min.). @ -[None done] What testing was considered but not performed or refused? (CT, X-rays, U/S, labs)? Why? @ -[None] What meds were considered but not given or refused? Why? @ -[None] Did you discuss the management of the patient with other professionals (professionals i.e. , PA, ASSET PROTECTION REPRESENTATIVE, lab, RT, psych nurse, social sciences department chair, mold presser, teacher, aoc operations intelligence officer, casey saw operator)? Give summary @ -[No] Was smoking cessation discussed for >3mins.? @ -[No] Was critical care preformed (if so, how long)? @ -[No] Were there social determinants of health that impacted care today? How? (Homelessness, low income, unemployed, alcoholism, drug addiction, transportation, low edu. Level, literacy, decrease access to med. care, fci, rehab)? @ -[No] Was there de-escalation of care discussed even if they declined (Discuss DNR or withdrawal of care, Hospice)? DNR status @ -[No] What co-morbidities impacted this encounter? (DM, HTN, Smoking, COPD, CAD, Cancer, CVA, ARF, Chemo, Hep., AIDS, mental health diagnosis, sleep apnea, morbid obesity)? @ -[None] Was patient admitted / discharged? Hospital course, mention meds given and route, prescriptions, significant lab abnormalities, going to OR and other pertinent info. @ -Discharge. 33-year-old female presenting to the ER with a chief complaint of dental pain. History and physical exam completed. Vitals stable. Patient in no signs of acute distress and nontoxic appearing. Exam remarkable for fracture right upper first molar. No drainable abscess. Oropharynx patent. No tongue ed sofi. Braces in place and appear intact. Patient started on Augmentin for infection prophylaxis. Orajel given. Tylenol threes prescribed. I advised patient to follow-up closely with a dentist and dentist for further evaluation. Strict return parameters discussed. Patient discharged in stable condition with follow-up to dentist, referral given. Patient verbally expressed understanding and agreement with care plan. Case discussed with ED attending, Dr. Loya. Undiagnosed new problem with uncertain prognosis? @ -[No] Drug Therapy requiring intensive monitoring for toxicity (Heparin, Nitro, Insulin, Cardizem)? @ -[No] Were any procedures done? @ -[No] Diagnosis/symptom? @ -Dental pain/fractured tooth Acute, or Chronic, or Acute on Chronic? @ -[Acute] Uncomplicated (without systemic symptoms) or Complicated (systemic symptoms)? @ -[Uncomplicated] Side effects of treatment? @ -[No] Exacerbation, Progression, or Severe Exacerbation? @ -[No] Poses a threat to life or bodily function? How? (Chest pain, [place], [place], pneumonia, PE, COPD, DKA, ARF, appy, cholecystitis, CVA, Diverticulitis, Homicidal, Suicidal, threat to staff... and all critical care pts) @ -[No] Disposition Clinical Impression: Pain, dental, Fractured tooth Disposition: HOME SELF-CARE Condition: Stable Instructions (If sedation given, give patient instructions): Toothache (ED) Additional Instructions: Follow-up closely with electric drill operator and/or dentist in the next 3 to 5 days. Complete full course of Augmentin. Continue taking [id number] ibuprofen for pain control. Return to the ER for any new or worsening concerns Prescriptions: Amoxic-Pot Clav 875-125Mg [Augmentin 875-125] 1 tab PO Q12HR #20 tab Acetaminophen-Codeine 300-30mg [Tylenol #3] 1 tab PO Q4H PRN #20 tablet PRN Reason: pain Is patient prescribed a controlled substance at d/c from ED?: Yes When asked, does pt state using other controlled substances?: No If prescribed controlled substance>3 days was MAPS reviewed?: Prescribed <3 Days If opioid is for acute pain is fill amount 7 days or less?: Yes If Rx opioid, was Start Talking consent form obtained?: Yes Referrals: Horacio Mckeon MD [Primary Care Provider] - 1-2 days Shailesh Ojeda DDS [STAFF PHYSICIAN] - 1-2 days Romina Michel DDS [STAFF PHYSICIAN] - 1-2 days Time of Disposition: 08:29
[2024-01-11] MEDS: BENZOCAINE 20 % GEL 11.9 GM TUBE MM ONE (08:52)
[2024-01-11 08:55] VITALS: BP 115/82; PULSE 65; TEMP 97.7
== END 2024-01-11 08:55 | disposition home or self-care (01) ==
LOC: EC 07:44
DX: K03.81 Cracked tooth (principal)
CPT/HCPCS: 99282

== ENCOUNTER 2024-01-14 21:35 | Emergency (ER) | payer OTHER ==
--- NOTE | 2024-01-14 22:24 | ED ---
URI HPI - General Source: patient, RN notes reviewed Mode of arrival: ambulatory Limitations: no limitations <Flora Green - Last Filed: 01/14/24 22:23> <Yg Encinas - Last Filed: 01/15/24 03:13> - General Chief Complaint: Upper Respiratory Infection Stated Complaint: chest pain Time Seen by Provider: 01/14/24 22:23 - History of Present Illness Initial Comments: Quick [id number] female presenting to the ER with chief complaint of cough x 3 days with shortness of breath and vomiting. Denies fever, chills. (Flora Green) 33-year-old female with history of asthma presenting with chief complaint of shortness of breath. Patient has had a cough and some chest tightness for the p ast 3 days. She also admits to vomiting, states that sometimes she coughs so hard that she vomits phlegm. No sore throat. No abdominal pain. No fever. No lower extremity swelling, history of blood clots, recent surgery or travel. (Yg Encinas) - Related Data Home Medications Medication Instructions Recorded Confirmed Pnv No.95/Ferrous Fum/Folic AC 1 tab PO DAILY 12/26/18 11/02/19 [ Multivitamin Tablet] Previous Rx's Medication Instructions Recorded HYDROcodone/APAP 7.5-325MG [[place] 1 each PO Q6H PRN #28 tab 11/04/19 7.5-325] Ibuprofen [Motrin] 600 mg PO Q6HR PRN #60 tab 11/04/19 Ibuprofen [Motrin] 800 mg PO Q8HR PRN #30 tab 04/23/20 Amoxicillin 875 mg PO Q12HR 7 Days #14 tablet 02/22/23 Acetaminophen-Codeine 300-30mg 1 tab PO Q4H PRN #20 tablet 01/11/24 [Tylenol #3] Amoxic-Pot Clav 875-125Mg 1 tab PO Q12HR #20 tab 01/11/24 [Augmentin 875-125] Albuterol Sulfate [Albuterol 1 puff PO Q4-6H PRN #8.5 gm 01/15/24 Sulfate Hfa] Allergies Allergy/AdvReac Type Severity Reaction Status Date / Time No Known Allergies Allergy Verified 01/14/24 21:47 Review of Systems ROS Other: All systems not noted in ROS Statement are negative. <Flora Green - Last Filed: 01/14/24 22:23> ROS Other: All systems not noted in ROS Statement are negative. <EncinasBipinandracarlos - Last Filed: 01/15/24 03:13> ROS Statement: Those systems with pertinent positive or pertinent negative responses have been documented in the HPI. Past Medical History Past Medical History: Asthma, GERD/Reflux Additional Past Medical History / Comment(s): migraine,. Obstetric history: She's had 3 sections and 2 spontaneous abortions. History of Any Multi-Drug Resistant Organisms: None Reported Past Surgical History: Section Past Anesthesia/Blood Transfusion Reactions: No Reported Reaction Past Psychological History: Anxiety Smoking Status: Never smoker Past Alcohol Use History: None Reported Past Drug Use History: None Reported - Past Family History Mother Family Medical History: No Reported History <Flora Green - Last Filed: 01/14/24 22:23> General Exam Limitations: no limitations <Flora Green - Last Filed: 01/14/24 22:23> General appearance: alert, in no apparent distress Head exam: Present: atraumatic, normocephalic, normal inspection Eye exam: Present: normal appearance, EOMI ENT exam: Present: normal exam, normal oropharynx, mucous membranes moist Neck exam: Present: normal inspection. Absent: meningismus Respiratory exam: Present: normal lung sounds bilaterally. Absent: respiratory distress, wheezes, rales, rhonchi, stridor Cardiovascular Exam: Present: regular rate, normal rhythm, normal heart sounds. Absent: systolic murmur, diastolic murmur, rubs, gallop, clicks Neurological exam: Present: alert, oriented X3 Psychiatric exam: Present: normal affect, normal mood Skin exam: Present: warm, dry <EncinasBipinandracarlos - Last Filed: 01/15/24 03:13> - General Exam Comments Initial Comments: Visual Physical Exam Vital signs reviewed General: Well-appearing, nontoxic, no acute distress. Head: Normocephalic, atraumatic Eyes: PERRLA, EOMI ENT: Airway patent Chest: Nonlabored breathing Skin: No visual rash, normal skin tone Neuro: Alert and oriented 3 Musculoskeletal: No gross abnormalities (Flora Green) Course Vital Signs 01/14/24 01/14/24 01/15/24 21:47 23:30 01:34 Temperature 98.1 F 98.0 F Pulse Rate 86 79 Respiratory 16 18 18 Rate Blood Pressure 125/81 121/76 O2 Sat by Pulse 100 97 Oximetry Medical Decision Making <Flora Green - Last Filed: 01/14/24 22:23> <HuangYg - Last Filed: 01/15/24 03:13> - Medical Decision Making I completed the quick note portion of this chart signed Flora Green PA-C (Flora Green) Was pt. sent in by a medical professional or institution (TAL Rendon, SERVICE TESTER, urgent care, hospital, or prison...) When possible be specific @ -No Did you speak to anyone other than the patient for history (EMS, parent, family, police, friend...)? What history was obtained from this source @ -No Did you review nursing and triage notes (agree or disagree)? Why? @ -I reviewed and agree with nursing and triage notes Were old charts reviewed (outside hosp., previous admission, EMS record, old EKG, old radiological studies, urgent care reports/EKG's, prison records)? Report findings @ -No old charts were reviewed Differential Diagnosis (chest pain, altered mental status, abdominal pain women, abdominal pain men, vaginal bleeding, weakness, fever, dyspnea, syncope, headache, dizziness, GI bleed, back pain, seizure, CVA, palpatations, mental health, musculoskeletal)? @ -Differential includes URI, bronchitis, pneumonia, asthma, this is not an all-inclusive list EKG interpreted by me (3pts min.). @ -As above X-rays interpreted by me (1pt min.). @ -Chest x-ray shows no acute process on preliminary reading. Formal report is pending CT interpreted by me (1pt min.). @ -None done U/S interpreted by me (1pt. min.). @ -None done What testing was considered but not performed or refused? (CT, X-rays, U/S, labs)? Why? @ -None What meds were considered but not given or refused? Why? @ -None Did you discuss the management of the patient with other professionals (professionals i.e. , TAL, SERVICE TESTER, lab, RT, psych nurse, case management social worker, biophysics scientist, teacher, chief quality officer, caseworker protective services)? Give summary @ -No Was smoking cessation discussed for >3mins.? @ -No Was critical care preformed (if so, how long)? @ -No Were there social determinants of health that impacted care today? How? (Homelessness, low income, unemployed, alcoholism, drug addiction, transportation, low edu. Level, literacy, decrease access to med. care, retirement, rehab)? @ -No Was there de-escalation of care discussed even if they declined (Discuss DNR or withdrawal of care, Hospice)? DNR status @ -No What co-morbidities impacted this encounter? (DM, HTN, Smoking, COPD, CAD, Cancer, CVA, ARF, Chemo, Hep., AIDS, mental health diagnosis, sleep apnea, morbid obesity)? @ -None Was patient admitted / discharged? Hospital course, mention meds given and route, prescriptions, significant lab abnormalities, going to OR and other pertinent info. @ -33-year-old female presenting with chief complaint of cough and shortness of breath. History of asthma. Heart and lungs are clear to auscultation. She is negative for influenza, RSV, COVID. Chest x-ray shows no evidence of acute process on preliminary reading. Patient is educated on today's findings and supportive management at home. Sent a refill of her albuterol inhaler for home. Discharged. Follow-up with PCP. Report back to ER with any new or worsening symptoms. Discussed return parameters and answered all questions. Patient conveyed verbal understanding and agreed to the plan. I discussed this case in detail with my attending Dr. Crowley Undiagnosed new problem with uncertain prognosis? @ -No Drug Therapy requiring intensive monitoring for toxicity (Heparin, Nitro, Insulin, Cardizem)? @ -No Were any procedures done? @ -No Diagnosis/symptom? @ -URI Acute, or Chronic, or Acute on Chronic? @ -Acute Uncomplicated (without systemic symptoms) or Complicated (systemic symptoms)? @ -Uncomplicated Side effects of treatment? @ -No Exacerbation, Progression, or Severe Exacerbation? @ -No Poses a threat to life or bodily function? How? (Chest pain, USA, CT, pneumonia, PE, COPD, DKA, ARF, appy, cholecystitis, CVA, Diverticulitis, Homicidal, Suicidal, threat to staff... and all critical care pts) @ -Low likelihood (Encinas,[place]) - Lab Data Lab Results 01/14/24 Range/Units 23:22 Influenza Type A (PCR) Not Detected (Not Detectd) Influenza Type B (PCR) Not Detected (Not Detectd) RSV (PCR) Not Detected (Not Detectd) SARS-CoV-2 (PCR) Not Detected (Not Detectd) Disposition <Flora Green - Last Filed: 01/14/24 22:23> Is patient prescribed a controlled substance at d/c from ED?: No Time of Disposition: 00:48 <Yg Encinas - Last Filed: 01/15/24 03:13> Clinical Impression: Upper respiratory tract infection, Asthmatic bronchitis Disposition: HOME SELF-CARE Condition: Good Instructions (If sedation given, give patient instructions): Upper Respiratory Infection (ED) Additional Instructions: Follow-up with PCP. Report back to ER with any new or worsening symptoms. Prescriptions: Albuterol Sulfate [Albuterol Sulfate Hfa] 1 puff PO Q4-6H PRN #8.5 gm PRN Reason: Shortness Of Breath Referrals: Horacio Mckeon MD [Primary Care Provider] - 1-2 days
[2024-01-15 00:55] VITALS: RESP 18
[2024-01-15] MEDS: ALBUTEROL HFA INHALER INHALATION STA (01:23)
[2024-01-15 01:36] VITALS: BP 121/76; PULSE 79; TEMP 98
--- NOTE | 2024-01-15 02:26 | XR ---
EXAM: XR Chest, 2 Views CLINICAL HISTORY: Pt presents with cough , vomiting, shortness of breath, right sided chest pain for the past 3 days, TECHNIQUE: Frontal and lateral views of the chest. COMPARISON: 05/10/22 FINDINGS: Lungs: Unremarkable. No consolidation. Pleural space: Unremarkable. Mediastinum: Unremarkable. Normal mediastinal contour. Bones/joints: No acute findings. IMPRESSION: No acute findings in the chest.
== END 2024-01-15 01:35 | disposition home or self-care (01) ==
LOC: EC 21:35
DX: J06.9 Acute upper respiratory infection, unspecified (principal); J45.909 Unspecified asthma, uncomplicated
CPT/HCPCS: 71046; 87636; 94640; 99285

== ENCOUNTER 2024-01-28 16:41 | Emergency (ER) | payer OTHER ==
--- NOTE | 2024-01-28 17:28 | ED ---
General Adult HPI - General Chief complaint: Dental/Oral Stated complaint: Oral Pain Time Seen by Provider: 01/28/24 17:20 Source: patient, RN notes reviewed, old records reviewed Mode of arrival: ambulatory Limitations: no limitations - History of Present Illness Initial comments: 33-year-old female who presents emergency department complaining of dental pain. Has been ongoing for a month. Has a left posterior upper molar that is cracked. Is chronically painful but worse over the last month or so. Is due to have it pulled but could not get an appointment until March. Presents today for reevaluation as she is still having pain. Has been on Augmentin and is still taking it. Denies any fevers or chills. Denies any shortness of breath or issues with eating or swallowing. Presents for further evaluation at this time. - Related Data Home Medications Medication Instructions Recorded Confirmed Pnv No.95/Ferrous Fum/Folic AC 1 tab PO DAILY 12/26/18 11/02/19 [ Multivitamin Tablet] Previous Rx's Medication Instructions Recorded HYDROcodone/APAP 7.5-325MG [[place] 1 each PO Q6H PRN #28 tab 11/04/19 7.5-325] Ibuprofen [Motrin] 600 mg PO Q6HR PRN #60 tab 11/04/19 Ibuprofen [Motrin] 800 mg PO Q8HR PRN #30 tab 04/23/20 Amoxicillin 875 mg PO Q12HR 7 Days #14 tablet 02/22/23 Acetaminophen-Codeine 300-30mg 1 tab PO Q4H PRN #20 tablet 01/11/24 [Tylenol #3] Amoxic-Pot Clav 875-125Mg 1 tab PO Q12HR #20 tab 01/11/24 [Augmentin 875-125] Albuterol Sulfate [Albuterol 1 puff PO Q4-6H PRN #8.5 gm 01/15/24 Sulfate Hfa] Amoxic-Pot Clav 875-125Mg 1 tab PO BID 10 Days #20 tab 01/28/24 [Augmentin 875-125] HYDROcodone/APAP 5-325MG [[place] 1 tab PO Q6HR PRN 3 Days #12 tab 01/28/24 5-325] Allergies Allergy/AdvReac Type Severity Reaction Status Date / Time No Known Allergies Allergy Verified 01/28/24 16:51 Review of Systems ROS Statement: Those systems with pertinent positive or pertinent negative responses have been documented in the HPI. Review of Systems: CONST: Denies fever EYES: Denies blurry vision ENT: Endorses dental pain C/V: Denies Chest pain RESP: Denies shortness of breath GI: Denies abdominal pain : Denies dysuria SKIN: Denies rash. MSK: Denies joint pain. NEURO: Denies headache ROS Other: All systems not noted in ROS Statement are negative. Past Medical History Past Medical History: Asthma, GERD/Reflux Additional Past Medical History / Comment(s): migraine,. Obstetric history: She's had 3 sections and 2 spontaneous abortions. History of Any Multi-Drug Resistant Organisms: None Reported Past Surgical History: Section Past Anesthesia/Blood Transfusion Reactions: No Reported Reaction Past Psychological History: Anxiety Smoking Status: Never smoker Past Alcohol Use History: None Reported Past Drug Use History: None Reported - Past Family History Mother Family Medical History: No Reported History General Exam - General Exam Comments Initial Comments: General: Appears in no acute distress. HEAD: Normal with no signs of head trauma. EYES: EOMI. ENT: Hearing grossly intact. Patient has a left superior molar pain. No evidence of abscess. Gumline is pink with no evidence of infection or worsening erythema or edema. It is midline. No posterior oropharyngeal swelling or edema. No tongue edema. Tooth #16 is affected. RESPIRATORY: No respiratory distress. C/V: Regular rate and rhythm. ABD: Abdomen is nondistended. EXT: No obvious deformity. SKIN: No rashes or lesions observed on exposed skin. NEURO: Alert and oriented. Limitations: no limitations Course Vital Signs 01/28/24 16:48 Temperature 98.1 F Pulse Rate 83 Respiratory 18 Rate Blood Pressure 116/78 O2 Sat by Pulse 98 Oximetry Medical Decision Making - Medical Decision Making Was pt. sent in by a medical professional or institution (, PA, HAT CHECKER, urgent care, hospital, or senior care...) When possible be specific @ -No Did you speak to anyone other than the patient for history (EMS, parent, family, police, friend...)? What history was obtained from this source @ -No Did you review nursing and triage notes (agree or disagree)? Why? @ -I reviewed and agree with nursing and triage notes Were old charts reviewed (outside hosp., previous admission, EMS record, old EKG, old radiological studies, urgent care reports/EKG's, senior care records)? Report findings @ -Old prescription charts and recent visit reviewed from earlier this month when patient was discharged home on Tylenol 3 starter pack as well as Augmentin. Differential Diagnosis (chest pain, altered mental status, abdominal pain women, abdominal pain men, vaginal bleeding, weakness, fever, dyspnea, syncope, headache, dizziness, GI bleed, back pain, seizure, CVA, palpatations, mental health, musculoskeletal)? @ -Toothache, tooth infection, cavity. This list is not all inclusive. EKG interpreted by me (3pts min.). @ -None done X-rays interpreted by me (1pt min.). @ -None done CT interpreted by me (1pt min.). @ -None done U/S interpreted by me (1pt. min.). @ -None done What testing was considered but not performed or refused? (CT, X-rays, U/S, labs)? Why? @ -None What meds were considered but not given or refused? Why? @ -None Did you discuss the management of the patient with other professionals (professionals i.e. , PA, HAT CHECKER, lab, RT, psych nurse, social media content manager, sheet pile hammer operator, teacher, security flex utility officer, shoe parts caser)? Give summary @ -No Was smoking cessation discussed for >3mins.? @ -No Was critical care preformed (if so, how long)? @ -No Were there social determinants of health that impacted care today? How? (Homelessness, low income, unemployed, alcoholism, drug addiction, transportation, low edu. Level, literacy, decrease access to med. care, fpc, rehab)? @ -No Was there de-escalation of care discussed even if they declined (Discuss DNR or withdrawal of care, Hospice)? DNR status @ -No What co-morbidities impacted this encounter? (DM, HTN, Smoking, COPD, CAD, Cancer, CVA, ARF, Chemo, Hep., AIDS, mental health diagnosis, sleep apnea, morbid obesity)? @ -None Was patient admitted / discharged? Hospital course, mention meds given and route, prescriptions, significant lab abnormalities, going to OR and other pertinent info. @ -Patient presents with toothache. No evidence of Ludewig's angina. Tooth ache seems isolated to the tooth. No obvious evidence of infection either. Somewhat chronic pain over the last month. Discussed with the patient and she expresses understanding that she needs to follow-up with a oral surgeon or dentist to have it extracted. Recommended she continue calling to see who will accept her insurance. I will continue empiric antibiotics at this time as well as provide her with a prescription for [place] 5 is the Tylenol 3's are not helping. She is given a dose of this as well as Decadron prior to discharge. Strict return precautions discussed. Patient was in agreement this plan. Signs are within acceptable limits. I will provide the patient with a prescription for Augmentin, [place] 5. I instructed the patient to follow up with their PCP in the next 1-3 days. I provided contact information for follow up with oral surgery. I explained that the patient should return to the emergency department if they experience any worsening symptoms. Strict return precautions were discussed with the patient. The patient expressed understanding of these instructions. I answered all questions that the patient had. The patient was discharged home in good condition with their prescriptions and follow up information. Undiagnosed new problem with uncertain prognosis? @ -No Drug Therapy requiring intensive monitoring for toxicity (Heparin, Nitro, Insulin, Cardizem)? @ -No Were any procedures done? @ -No Diagnosis/symptom? @ -Toothache Acute, or Chronic, or Acute on Chronic? @ -Acute on chronic Uncomplicated (without systemic symptoms) or Complicated (systemic symptoms)? @ -Uncomplicated Side effects of treatment? @ -No Exacerbation, Progression, or Severe Exacerbation? @ -No Poses a threat to life or bodily function? How? (Chest pain, [place], [place], pneumonia, PE, COPD, DKA, ARF, appy, cholecystitis, CVA, Diverticulitis, Homicidal, Suicidal, threat to staff... and all critical care pts) @ -Unlikely Disposition Clinical Impression: Toothache Disposition: HOME SELF-CARE Condition: Good Instructions (If sedation given, give patient instructions): Toothache (ED) Additional Instructions: Use analgesia medications as needed for pain. Continue to take empiric antibiotics. Attempt to follow-up with an oral surgeon for tooth extraction as soon as possible. Return to the emergency department for same symptoms. Follow-up with your PCP in the next 1 to 3 days. Prescriptions: Amoxic-Pot Clav 875-125Mg [Augmentin 875-125] 1 tab PO BID 10 Days #20 tab HYDROcodone/APAP 5-325MG [[place] 5-325] 1 tab PO Q6HR PRN 3 Days #12 tab PRN Reason: Pain Is patient prescribed a controlled substance at d/c from ED?: Yes When asked, does pt state using other controlled substances?: No If prescribed controlled substance>3 days was MAPS reviewed?: Prescribed <3 Days If opioid is for acute pain is fill amount 7 days or less?: Yes If Rx opioid, was Start Talking consent form obtained?: Yes Referrals: Horacio Mckeon MD [Primary Care Provider] - 1-2 days iTmmy Finnegan DDS [STAFF PHYSICIAN] - 1-2 days Time of Disposition: 17:27
[2024-01-28] MEDS: dexAMETHasone 2 MG TAB PO STA (17:32)
[2024-01-28] MEDS: KETOROLAC 15 MG/ML 1 ML VIAL IM STA (17:32)
[2024-01-28] MEDS: HYDROcodone/APAP 5-325MG 1 EACH TAB PO STA (17:33)
[2024-01-28 17:40] VITALS: BP 118/80; PULSE 88; RESP 19; TEMP 98
== END 2024-01-28 17:38 | disposition home or self-care (01) ==
LOC: EC 16:41
DX: K08.89 Other specified disorders of teeth and supporting structures (principal)
CPT/HCPCS: 96372; 99283; J8540; J1885; 99282

== ENCOUNTER 2024-08-03 19:47 | Emergency (ER) | payer OTHER ==
[2024-08-03 19:53] VITALS: BP 135/83; PULSE 76; RESP 18; TEMP 98.5
--- NOTE | 2024-08-03 20:17 | ED ---
General Adult HPI - General Chief complaint: ENT Stated complaint: throat swollen Source: patient, RN notes reviewed, old records reviewed Mode of arrival: ambulatory Limitations: no limitations - History of Present Illness Initial comments: 33-year-old female presents for evaluation of sore throat, congestion, symptoms have been present for the past 5 or 6 days. No fever. No cough. Patient is otherwise healthy with no reported chronic medical conditions. She had been eating some chips just prior to my evaluation. - Related Data Home Medications Medication Instructions Recorded Confirmed Pnv No.95/Ferrous Fum/Folic AC 1 tab PO DAILY 12/26/18 11/02/19 [ Multivitamin Tablet] Previous Rx's Medication Instructions Recorded HYDROcodone/APAP 7.5-325MG [[place] 1 each PO Q6H PRN #28 tab 11/04/19 7.5-325] Ibuprofen [Motrin] 600 mg PO Q6HR PRN #60 tab 11/04/19 Ibuprofen [Motrin] 800 mg PO Q8HR PRN #30 tab 04/23/20 Amoxicillin 875 mg PO Q12HR 7 Days #14 tablet 02/22/23 Acetaminophen-Codeine 300-30mg 1 tab PO Q4H PRN #20 tablet 01/11/24 [Tylenol #3] Amoxic-Pot Clav 875-125Mg 1 tab PO Q12HR #20 tab 01/11/24 [Augmentin 875-125] Albuterol Sulfate [Albuterol 1 puff PO Q4-6H PRN #8.5 gm 01/15/24 Sulfate Hfa] Amoxic-Pot Clav 875-125Mg 1 tab PO BID 10 Days #20 tab 01/28/24 [Augmentin 875-125] HYDROcodone/APAP 5-325MG [[place] 1 tab PO Q6HR PRN 3 Days #12 tab 01/28/24 5-325] Allergies Allergy/AdvReac Type Severity Reaction Status Date / Time No Known Allergies Allergy Verified 08/03/24 19:53 Review of Systems ROS Statement: Those systems with pertinent positive or pertinent negative responses have been documented in the HPI. ROS Other: All systems not noted in ROS Statement are negative. Past Medical History Past Medical History: Asthma, GERD/Reflux Additional Past Medical History / Comment(s): migraine,. Obstetric history: She's had 3 sections and 2 spontaneous abortions. History of Any Multi-Drug Resistant Organisms: None Reported Past Surgical History: Section Past Anesthesia/Blood Transfusion Reactions: No Reported Reaction Past Psychological History: Anxiety Smoking Status: Never smoker Past Alcohol Use History: None Reported Past Drug Use History: None Reported - Past Family History Mother Family Medical History: No Reported History General Exam Limitations: no limitations General appearance: alert, in no apparent distress Head exam: Present: atraumatic, normocephalic Eye exam: Present: normal appearance, PERRL ENT exam: Present: normal exam, normal oropharynx, mucous membranes moist Neck exam: Present: normal inspection. Absent: tenderness, meningismus Respiratory exam: Present: normal lung sounds bilaterally. Absent: respiratory distress, wheezes Cardiovascular Exam: Present: regular rate, normal rhythm GI/Abdominal exam: Present: soft. Absent: distended, tenderness Extremities exam: Present: normal inspection, normal capillary refill. Absent: pedal edema, calf tenderness Neurological exam: Present: alert, oriented X3, CN II-XII intact. Absent: motor sensory deficit Skin exam: Present: warm, dry, intact Course Vital Signs 08/03/24 19:52 Temperature 98.5 F Pulse Rate 76 Respiratory 18 Rate Blood Pressure 135/83 O2 Sat by Pulse 98 Oximetry Medical Decision Making - Medical Decision Making Was pt. sent in by a medical professional or institution (, PA, CELL SUPPORT OPERATOR, urgent care, hospital, or alf...) When possible be specific @ -No Did you speak to anyone other than the patient for history (EMS, parent, family, police, friend...)? What history was obtained from this source @ -No Did you review nursing and triage notes (agree or disagree)? Why? @ -I reviewed and agree with nursing and triage notes Were old charts reviewed (outside hosp., previous admission, EMS record, old EKG, old radiological studies, urgent care reports/EKG's, alf records)? Report findings @ -No old charts were reviewed Differential Diagnosis: strep pharyngitis, viral upper respiratory infection EKG interpreted by me (3pts min.). @ -As above X-rays interpreted by me (1pt min.). @ -None done CT interpreted by me (1pt min.). @ -None done U/S interpreted by me (1pt. min.). @ -None done What testing was considered but not performed or refused? (CT, X-rays, U/S, labs)? Why? @ -None What meds were considered but not given or refused? Why? @ -None Did you discuss the management of the patient with other professionals (professionals i.e. , PA, CELL SUPPORT OPERATOR, lab, RT, psych nurse, social media designer, family lawyer, teacher, natural resource officer, housing case manager)? Give summary @ -No Was smoking cessation discussed for >3mins.? @ -No Was critical care preformed (if so, how long)? @ -No Were there social determinants of health that impacted care today? How? (Homelessness, low income, unemployed, alcoholism, drug addiction, transportation, low edu. Level, literacy, decrease access to med. care, detention, rehab)? @ -No Was there de-escalation of care discussed even if they declined (Discuss DNR or withdrawal of care, Hospice)? DNR status @ -No What co-morbidities impacted this encounter? (DM, HTN, Smoking, COPD, CAD, Cancer, CVA, ARF, Chemo, Hep., AIDS, mental health diagnosis, sleep apnea, morbid obesity)? @ -None Was patient admitted / discharged? Hospital course, mention meds given and route, prescriptions, significant lab abnormalities, going to OR and other pertinent info. @ -33-year-old female presenting with congestion, sore throat. There is no signs of tonsillar swelling or exudate, no pharyngeal erythema. Patient is eating chips at the time my examination. Patient will continue supportive measures at home and follow-up with her primary care provider. Undiagnosed new problem with uncertain prognosis? @ -No Drug Therapy requiring intensive monitoring for toxicity (Heparin, Nitro, Insulin, Cardizem)? @ -No Were any procedures done? @ -No Diagnosis/symptom? @ -Viral upper respiratory infection Acute, or Chronic, or Acute on Chronic? @ -[Acute Uncomplicated (without systemic symptoms) or Complicated (systemic symptoms)? @ -Default Side effects of treatment? @ -No Exacerbation, Progression, or Severe Exacerbation? @ -No Poses a threat to life or bodily function? How? (Chest pain, [place], [place], pneumonia, PE, COPD, DKA, ARF, appy, cholecystitis, CVA, Diverticulitis, Homicidal, Suicidal, threat to staff... and all critical care pts) @ -No Disposition Clinical Impression: Sore throat Disposition: HOME SELF-CARE Condition: Good Instructions (If sedation given, give patient instructions): Pharyngitis (ED) Is patient prescribed a controlled substance at d/c from ED?: No Referrals: Horacio Mckeon MD [Primary Care Provider] - 1-2 days Time of Disposition: 20:17
== END 2024-08-03 20:28 | disposition home or self-care (01) ==
LOC: EC 19:47
DX: J02.9 Acute pharyngitis, unspecified (principal); Z11.52 Encounter for screening for COVID-19
CPT/HCPCS: 99282

== ENCOUNTER 2024-09-20 18:41 | Emergency (ER) | payer OTHER ==
[2024-09-20 18:51] VITALS: RESP 18
[2024-09-20] MEDS: KETOROLAC 15 MG/ML 1 ML VIAL IM STA (19:36)
[2024-09-20] MEDS: DEXAMETHASONE SOD PHOSPHATE 10 MG/ML 1 ML VIAL IM STA (19:37)
--- NOTE | 2024-09-20 19:59 | ED ---
General Adult HPI - General Chief complaint: Neck Pain/Injury Stated complaint: Neck pain,Back pain Time Seen by Provider: 09/20/24 19:07 Source: patient Mode of arrival: ambulatory Limitations: no limitations - History of Present Illness Initial comments: 33-year-old female presenting with chief complaint of diffuse body pain. She reports that the pain starts in her neck and goes all the way down to her toes. States that she has had this pain in the past. She has seen her PCP and neurologist before, she has been given steroids in the past which seems to help. She denies any injury or trauma. No fever or chills. No weakness. States that her muscles feel tight. - Related Data Home Medications Medication Instructions Recorded Confirmed Pnv No.95/Ferrous Fum/Folic AC 1 tab PO DAILY 12/26/18 11/02/19 [ Multivitamin Tablet] Previous Rx's Medication Instructions Recorded HYDROcodone/APAP 7.5-325MG [[place] 1 each PO Q6H PRN #28 tab 11/04/19 7.5-325] Ibuprofen [Motrin] 600 mg PO Q6HR PRN #60 tab 11/04/19 Ibuprofen [Motrin] 800 mg PO Q8HR PRN #30 tab 04/23/20 Amoxicillin 875 mg PO Q12HR 7 Days #14 tablet 02/22/23 Acetaminophen-Codeine 300-30mg 1 tab PO Q4H PRN #20 tablet 01/11/24 [Tylenol #3] Amoxic-Pot Clav 875-125Mg 1 tab PO Q12HR #20 tab 01/11/24 [Augmentin 875-125] Albuterol Sulfate [Albuterol 1 puff PO Q4-6H PRN #8.5 gm 01/15/24 Sulfate Hfa] Amoxic-Pot Clav 875-125Mg 1 tab PO BID 10 Days #20 tab 01/28/24 [Augmentin 875-125] HYDROcodone/APAP 5-325MG [[place] 1 tab PO Q6HR PRN 3 Days #12 tab 01/28/24 5-325] Allergies Allergy/AdvReac Type Severity Reaction Status Date / Time No Known Allergies Allergy Verified 09/20/24 18:51 Review of Systems ROS Statement: Those systems with pertinent positive or pertinent negative responses have been documented in the HPI. ROS Other: All systems not noted in ROS Statement are negative. Past Medical History Past Medical History: Asthma, GERD/Reflux Additional Past Medical History / Comment(s): migraine,. Obstetric history: She's had 3 sections and 2 spontaneous abortions. History of Any Multi-Drug Resistant Organisms: None Reported Past Surgical History: Section Past Anesthesia/Blood Transfusion Reactions: No Reported Reaction Past Psychological History: Anxiety Smoking Status: Never smoker Past Alcohol Use History: None Reported Past Drug Use History: None Reported - Past Family History Mother Family Medical History: No Reported History General Exam Limitations: no limitations General appearance: alert, in no apparent distress Head exam: Present: atraumatic, normocephalic, normal inspection Eye exam: Present: normal appearance, EOMI Neck exam: Present: normal inspection Respiratory exam: Absent: respiratory distress Cardiovascular Exam: Present: regular rate Neurological exam: Present: alert, oriented X3 Psychiatric exam: Present: normal affect, normal mood Skin exam: Present: warm, dry, normal color Course Vital Signs 09/20/24 18:47 Temperature 98.4 F Pulse Rate 75 Respiratory 18 Rate Blood Pressure 117/91 O2 Sat by Pulse 99 Oximetry Medical Decision Making - Medical Decision Making Was pt. sent in by a medical professional or institution (, PA, QUALITY ANALYST, urgent care, hospital, or senior care...) When possible be specific @ -No Did you speak to anyone other than the patient for history (EMS, parent, family, police, friend...)? What history was obtained from this source @ -No Did you review nursing and triage notes (agree or disagree)? Why? @ -I reviewed and agree with nursing and triage notes Were old charts reviewed (outside hosp., previous admission, EMS record, old EKG, old radiological studies, urgent care reports/EKG's, senior care records)? Report findings @ -No old charts were reviewed Differential Diagnosis (chest pain, altered mental status, abdominal pain women, abdominal pain men, vaginal bleeding, weakness, fever, dyspnea, syncope, headache, dizziness, GI bleed, back pain, seizure, CVA, palpatations, mental health, musculoskeletal)? @ -Differential Musculoskeletal Muscular strain, contusion, ligament sprain, fracture, arthritis, septic arthritis, bursitis, cellulitis, muscle spasm, nerve compression, DVT, arterial occlusion, herpes zoster, electrolyte abnormality, tumor.... This is not meant to be in all inclusive list EKG interpreted by me (3pts min.). @ -As above X-rays interpreted by me (1pt min.). @ -None done CT interpreted by me (1pt min.). @ -None done U/S interpreted by me (1pt. min.). @ -None done What testing was considered but not performed or refused? (CT, X-rays, U/S, labs)? Why? @ -None What meds were considered but not given or refused? Why? @ -None Did you discuss the management of the patient with other professionals (professionals i.e. , PA, QUALITY ANALYST, lab, RT, psych nurse, drug abuse social worker, family resource management professor, teacher, title officer, case fitter)? Give summary @ -No Was smoking cessation discussed for >3mins.? @ -No Was critical care preformed (if so, how long)? @ -No Were there social determinants of health that impacted care today? How? (Homelessness, low income, unemployed, alcoholism, drug addiction, transportation, low edu. Level, literacy, decrease access to med. care, intermediate, rehab)? @ -No Was there de-escalation of care discussed even if they declined (Discuss DNR or withdrawal of care, Hospice)? DNR status @ -No What co-morbidities impacted this encounter? (DM, HTN, Smoking, COPD, CAD, Cancer, CVA, ARF, Chemo, Hep., AIDS, mental health diagnosis, sleep apnea, morbid obesity)? @ -None Was patient admitted / discharged? Hospital course, mention meds given and route, prescriptions, significant lab abnormalities, going to OR and other pertinent info. @ -33-year-old female presenting with chief complaint of diffuse pain from her neck all the way down to her toes. She has had this pain in the past. No injury or trauma. No red flag symptoms. She is given Toradol and Decadron on reassessment reports improvement in her symptoms. States this has worked in the past for this pain as well. Instructed to follow-up with her neurologist. Raven ho-up with PCP. Report back to ER with any new or worsening symptoms. Discussed return parameters and answered all questions. Patient conveyed verbal understanding and agreed to the plan. I discussed this case in detail with my attending Dr. Helmreich Undiagnosed new problem with uncertain prognosis? @ -No Drug Therapy requiring intensive monitoring for toxicity (Heparin, Nitro, Insulin, Cardizem)? @ -No Were any procedures done? @ -No Diagnosis/symptom? @ -Diffuse body pain Acute, or Chronic, or Acute on Chronic? @ -Acute on chronic Uncomplicated (without systemic symptoms) or Complicated (systemic symptoms)? @ -Uncomplicated Side effects of treatment? @ -No Exacerbation, Progression, or Severe Exacerbation? @ -No Poses a threat to life or bodily function? How? (Chest pain, [place], [place], pneumonia, PE, COPD, DKA, ARF, appy, cholecystitis, CVA, Diverticulitis, Homicidal, Suicidal, threat to staff... and all critical care pts) @ -Unlikely Disposition Clinical Impression: Diffuse pain Disposition: HOME SELF-CARE Condition: Good Instructions (If sedation given, give patient instructions): Musculoskeletal Pain (ED) Additional Instructions: Follow-up with PCP and neurologist. Report back to ER with any new or worsening symptoms. Is patient prescribed a controlled substance at d/c from ED?: No Referrals: Horacio Mckeon MD [Primary Care Provider] - 1-2 days Time of Disposition: 19:58
[2024-09-20 20:07] VITALS: BP 118/89; PULSE 83; TEMP 98.2
== END 2024-09-20 22:13 | disposition home or self-care (01) ==
LOC: EC 18:41
DX: M79.676 Pain in unspecified toe(s) (principal); M54.2 Cervicalgia
CPT/HCPCS: 96372; 99283; J1100; J1885